=== PATIENT | male | born 1965 | race American Indian/Alaskan Native ===

== ENCOUNTER 2020-06-02 10:18 | Emergency (ER) | payer SELFPAY ==
--- NOTE | 2020-06-02 10:43 | Event Note ---
ED Screening Note Date of service: 06/02/20 Time: 10:40 ED Screening Note: Patient presents with complaints of elevated blood pressure x this morning States blood pressure was 205/70s Denies any chest pain, shortness of breath, headache, blurred vision, dizziness states compliance with home BP meds Hx of CHF edema noted in lower legs This initial assessment/diagnostic orders/clinical plan/treatment(s) is/are subject to change based on patients health status, clinical progression and re-assessment by fellow clinical providers in the ED. Further treatment and workup at subsequent clinical providers discretion. Patient/guardian urged not to elope from the ED as their condition may be serious if not clinically assessed and managed. Initial orders include: labs
[2020-06-02 11:51] LABS: Basophils # (Auto) 0.1 K/mm3 (0.0-0.1); Basophils % (Auto) 0.8 % (0.0-1.8); Eosinophils % (Auto) 0.1 % (0.0-4.3); Hematocrit 25.3 % (35.5-45.6); Hemoglobin 8.7 gm/dl (11.8-15.2); Lymphocytes % (Auto) 14.9 % (13.4-35.0); Mean Corpuscular HGB Conc 35 % (32-34); Mean Corpuscular Volume 85 fl (84-94); Monocytes # (Auto) 0.5 K/mm3 (0.0-0.8); Monocytes % (Auto) 7.8 % (0.0-7.3); Platelet Count 118 K/mm3 (140-440); Red Blood Count 2.97 M/mm3 (3.65-5.03); Red Cell Distribution Width 12.5 % (13.2-15.2)
[2020-06-02 11:53] LABS: Albumin 3.9 g/dL (3.9-5); Calcium 8.6 mg/dL (8.4-10.2)
[2020-06-02] MEDS ORDERED: hydrALAZINE 100 MG TAB PO ONE (14:34)
[2020-06-02] MEDS ORDERED: amLODIPine 5 MG TAB PO ONE (14:35)
--- NOTE | 2020-06-02 15:38 | Emergency Department Report ---
ED General Adult HPI - General Chief complaint: High BP Stated complaint: HBP Time Seen by Provider: 06/02/20 10:39 Source: patient Mode of arrival: Ambulatory Limitations: No Limitations - History of Present Illness Initial comments: 54-year-old male with a past medical history of diabetes, hypertension, chf, chronic renal insufficiency, and peptic ulcer disease presents to the hospital planing of elevated blood pressure. Patient states he checked his blood pressure at home last night and it was 72/46. Patient checks his blood pressure about 730 this morning and it was elevated. Patient states his blood pressures patient was due for his BP medications however, took the last dose of his medications last night. [place] and [place] not have a local physician. He complains of chronic lower extremity edema with left leg greater than right which is also chronic. He denies calf tenderness, chest pain, shortness of breath, or change in urine output. Patient states he has known chronic renal sufficiency but does not know his creatinine number. Patient states his blood pressure cuff sizes too large states he lost a lot of weight that he gets an error at home with repeated blood pressure measurement at [facility] - Related Data Previous Rx's Medication Instructions Recorded Last Taken Type AtorvaSTATin [Lipitor] 40 mg PO DAILY #30 06/02/20 Unknown Rx Bumetanide 2 mg PO BID #60 06/02/20 Unknown Rx amLODIPine 10 mg PO DAILY #30 06/02/20 Unknown Rx hydrALAZINE [Apresoline TAB] 100 mg PO TID #90 tab 06/02/20 Unknown Rx metOLazone [Zaroxolyn] 5 mg PO QDAY #30 06/02/20 Unknown Rx Allergies Allergy/AdvReac Type Severity Reaction Status Date / Time No Known Allergies Allergy Unverified 06/02/20 10:30 ED Review of Systems ROS: Stated complaint: HBP Other details as noted in HPI Comment: All other systems reviewed and negative ED Past Medical Hx - Past Medical History Hx Hypertension: Yes Hx Congestive Heart Failure: Yes Hx Diabetes: Yes Hx Renal Disease: Yes (cri) - Surgical History Additional Surgical History: ULCER - Social History Smoking Status: Current Some Day Smoker Substance Use Type: None - Medications Home Medications: Home Medications Medication Instructions Recorded Confirmed Last Taken Type AtorvaSTATin [Lipitor] 40 mg PO DAILY #30 06/02/20 Unknown Rx Bumetanide 2 mg PO BID #60 06/02/20 Unknown Rx amLODIPine 10 mg PO DAILY #30 06/02/20 Unknown Rx hydrALAZINE [Apresoline TAB] 100 mg PO TID #90 tab 06/02/20 Unknown Rx metOLazone [Zaroxolyn] 5 mg PO QDAY #30 06/02/20 Unknown Rx ED Physical Exam - General Limitations: No Limitations - Other Other exam information: General: No acute distress Head: Atraumatic Eyes: normal appearance ENT: Moist mucous membranes Neck: Normal appearance, no midline tenderness Chest: Clear to auscultation bilaterally CV: Regular rate and rhythm Abdomen: Soft, normal bowel sounds, nontender, nondistended, no rebound or guarding Back: Normal inspection Extremity: Bilateral lower extremity edema left leg larger than the right without calf tenderness, erythema, or warmth Neuro: Alert O x 3, no facial asymmetry, speech clear, no gross motor sensory deficit Psych: Appropriate behavior Skin: No rash ED Course Vital Signs 06/02/20 06/02/20 06/02/20 10:30 10:41 14:14 Temperature 98 F Pulse Rate 69 Respiratory 18 16 Rate Blood Pressure 226/89 Blood Pressure 208/91 [Left] O2 Sat by Pulse 97 Oximetry 06/02/20 06/02/20 06/02/20 14:15 14:30 14:49 Temperature 97.7 F Pulse Rate 59 L 67 Respiratory Rate Blood Pressure 230/97 218/89 Blood Pressure [Left] O2 Sat by Pulse 100 Oximetry 06/02/20 16:01 Temperature Pulse Rate 79 Respiratory 9 L Rate Blood Pressure 178/79 Blood Pressure [Left] O2 Sat by Pulse Oximetry - Consultations Consultation #1: 06/02/20 16:23 Case was discussed with on-call kosher dietary service manager Dr. Redmond who agrees patient can follow-up as an outpatient regarding his chronic renal insufficiency. Advises to increase hydralazine to 100 mg 3 times daily for additional blood pressure control and agrees that current medication list can be refilled. ED Medical Decision Making - Lab Data Result diagrams: 06/02/20 11:08 06/02/20 11:08 Lab Results 06/02/20 06/02/20 Range/Units 11:08 11:08 WBC 6.7 (4.5-11.0) K/mm3 RBC 2.97 L (3.65-5.03) M/mm3 Hgb 8.7 L (11.8-15.2) gm/dl Hct 25.3 L (35.5-45.6) % MCV 85 (84-94) fl MCH 29 (28-32) pg MCHC 35 H (32-34) % RDW 12.5 L (13.2-15.2) % Plt Count 118 L (140-440) K/mm3 Lymph % (Auto) 14.9 (13.4-35.0) % Dewey % (Auto) 7.8 H (0.0-7.3) % Eos % (Auto) 0.1 (0.0-4.3) % Baso % (Auto) 0.8 (0.0-1.8) % Lymph # 1.0 L (1.2-5.4) K/mm3 Dewey # 0.5 (0.0-0.8) K/mm3 Eos # 0.0 (0.0-0.4) K/mm3 Baso # 0.1 (0.0-0.1) K/mm3 Seg Neutrophils % 76.4 H (40.0-70.0) % Seg Neutrophils # 5.1 (1.8-7.7) K/mm3 Sodium 139 (137-145) mmol/L Potassium 4.0 (3.6-5.0) mmol/L Chloride 103.0 (98-107) mmol/L Carbon Dioxide 25 (22-30) mmol/L Anion Gap 15 mmol/L BUN 61 H (9-20) mg/dL Creatinine 3.4 H (0.8-1.3) mg/dL Estimated GFR 23 ml/min BUN/Creatinine Ratio 18 % Glucose 167 H (75-100) mg/dL Calcium 8.6 (8.4-10.2) mg/dL Total Bilirubin 0.30 (0.1-1.2) mg/dL AST 17 (5-40) units/L ALT 10 (7-56) units/L Alkaline Phosphatase 79 (35-129) units/L Total Protein 6.8 (6.3-8.2) g/dL Albumin 3.9 (3.9-5) g/dL Albumin/Globulin Ratio 1.3 % - EKG Data -: EKG Interpreted by Me ([facility]) EKG shows normal: sinus rhythm, ST-T waves Rate: normal (65) - Medical Decision Making Patient was provided his hydralazine and Norvasc as he did not have any medications this morning. Positive reduction in blood pressure. Patient has chronic leg edema with denies shortness of breath. Case discussed with kosher dietary service manager regarding patient's renal insufficiency. No hyperkalemia or acidosis noted therefore thought to be chronic (as reported by pt) and patient can f/u follow-up as outpatient. Current meds will be refilled with increase in hydralazine Patient informed that his hydralazine will be increased. He was also informed to obtain a different blood pressure cuff that is appropriate for the size of his arm and to check his blood pressure measurement prior to his hydralazine dosage and if his bp is low then do not take the medication Critical Care Time: No Critical care attestation.: If time is entered above; I have spent that time in minutes in the direct care of this critically ill patient, excluding procedure time. ED Disposition Clinical Impression: Uncontrolled hypertension, Medication refill, CRI (chronic renal insufficiency), Chronic CHF Disposition: DC- TO HOME OR SELFCARE Is pt being admited?: No Does the pt Need Aspirin: No Condition: Stable Instructions: Hypertension (ED), Impaired Kidney Function (ED), Leg Edema (ED) Additional Instructions: Take the medication as prescribed. Follow-up with your doctor or doctor/clinic provided. Return if symptoms worsen as indicated by your discharge instructions. Prescriptions: amLODIPine 10 mg PO DAILY #30 hydrALAZINE [Apresoline TAB] 100 mg PO TID #90 tab Bumetanide 2 mg PO BID #60 AtorvaSTATin [Lipitor] 40 mg PO DAILY #30 metOLazone [Zaroxolyn] 5 mg PO QDAY #30 Referrals: [facility] MD GREG [Primary Care Provider] - 3-5 Days (Primary care clinic) MALIK HAQ MD [Staff Physician] - 3-5 Days (Environmental Auditor) VIVIAN DEAN MD [Staff Physician] - 3-5 Days (Primary care doctor) OBDULIA REDMOND MD [Staff Physician] - 3-5 Days ([facility] (call office janet to schedule close follow up appointment)) Time of Disposition: 16:56
[2020-06-02] MEDS ORDERED: BUMETANIDE 1 MG TAB PO ONE (17:00)
[2020-06-02 17:37] VITALS: BP 170/72
== END 2020-06-02 17:13 | disposition home or self-care (01) ==
LOC: ED 10:18
DX: I13.0 Hypertensive heart and chronic kidney disease with heart failure and stage 1 through stage 4 chronic kidney disease, or unspecified chronic kidney disease (principal); E11.22 Type 2 diabetes mellitus with diabetic chronic kidney disease; N18.9 Chronic kidney disease, unspecified; I50.9 Heart failure, unspecified; F17.200 Nicotine dependence, unspecified, uncomplicated; Z79.899 Other long term (current) drug therapy; Z76.0 Encounter for issue of repeat prescription
CPT/HCPCS: 36415; 80053; 85025; 93005; 99283

== ENCOUNTER 2020-09-04 08:05 | Emergency (ER) | payer SELFPAY ==
--- NOTE | 2020-09-04 08:22 | Emergency Department Report ---
HPI - General Chief Complaint: Allergic Reaction Time Seen by Provider: 09/04/20 08:21 ED Past Medical Hx - Past Medical History Previous Medical History?: Yes Hx Hypertension: Yes Hx Congestive Heart Failure: Yes Hx Diabetes: Yes Hx Renal Disease: Yes (cri) - Surgical History Past Surgical History?: Yes Additional Surgical History: ULCER - Social History Smoking Status: Never Smoker Substance Use Type: Alcohol, Prescribed - Medications Home Medications: Home Medications Medication Instructions Recorded Confirmed Last Taken Type AtorvaSTATin [Lipitor] 40 mg PO DAILY #30 06/02/20 Unknown Rx Bumetanide 2 mg PO BID #60 06/02/20 Unknown Rx amLODIPine 10 mg PO DAILY #30 06/02/20 Unknown Rx hydrALAZINE [Apresoline TAB] 100 mg PO TID #90 tab 06/02/20 Unknown Rx metOLazone [Zaroxolyn] 5 mg PO QDAY #30 06/02/20 Unknown Rx ED Review of Systems ROS: Stated complaint: ALLERGIC REACTION Other details as noted in HPI Physical Exam - Physical Exam Vital Signs: Vital Signs 09/04/20 08:11 Temperature 98.6 F Pulse Rate 97 H Respiratory 18 Rate Blood Pressure 209/86 O2 Sat by Pulse 98 Oximetry ED Course Vital Signs 09/04/20 08:11 Temperature 98.6 F Pulse Rate 97 H Respiratory 18 Rate Blood Pressure 209/86 O2 Sat by Pulse 98 Oximetry Critical care attestation.: If time is entered above; I have spent that time in minutes in the direct care of this critically ill patient, excluding procedure time. ED Disposition Condition: Stable
[2020-09-04] MEDS ORDERED: diphenhydrAMINE 50 MG/ML VIAL IV ONE (08:28)
[2020-09-04] MEDS ORDERED: methylPREDNISolone Sod Succinate 125 MG/2 ML INJ IV ONE (08:28)
[2020-09-04] MEDS ORDERED: FAMOTIDINE 20 MG/2 ML INJ IV ONE (08:28)
--- NOTE | 2020-09-04 08:31 | Emergency Department Report ---
ED Allergic Reaction HPI - General Chief complaint: Allergic Reaction Stated complaint: ALLERGIC REACTION Time Seen by Provider: 09/04/20 08:21 Source: patient, family Mode of arrival: Wheelchair Limitations: No Limitations - History of Present Illness Initial Comments: 55-year-old male with a past medical history of diabetes, hypertension, chf, chronic renal insufficiency, and peptic ulcer disease presents to the hospital complaining of intermittent facial swelling for the past 3 days. Patient states he was sent to the [facility] ER on July 31 secondary to wheezing while at his primary care doctor's office. He was found to be hypertensive. He had lisinopril added to his current blood pressure regimen. Since patient has had intermittent facial swelling that and worsened today. Patient denies shortness of breath, rash, wheezing, tongue, or throat tightness. He thinks he had a similar reaction to lisinopril in the past but did not communicate this to the treating physician. PMD: [facility]. Patient last took lisinopril at 6 PM last night and did not take any medications this morning prior to arrival - Related Data Previous Rx's Medication Instructions Recorded Last Taken Type AtorvaSTATin [Lipitor] 40 mg PO DAILY #30 06/02/20 Unknown Rx Bumetanide 2 mg PO BID #60 06/02/20 Unknown Rx amLODIPine 10 mg PO DAILY #30 06/02/20 Unknown Rx hydrALAZINE [Apresoline TAB] 100 mg PO TID #90 tab 06/02/20 Unknown Rx metOLazone [Zaroxolyn] 5 mg PO QDAY #30 06/02/20 Unknown Rx Famotidine [Pepcid] 20 mg PO BID #10 tablet 09/04/20 Unknown Rx diphenhydrAMINE [Benadryl CAP] 25 mg PO Q6HR PRN #30 capsule 09/04/20 Unknown Rx methylPREDNISolone [Medrol 4MG 4 mg PO DAILY #1 tab.ds.pk 09/04/20 Unknown Rx DOSEPAK (21 tabs)] Allergies Allergy/AdvReac Type Severity Reaction Status Date / Time lisinopril Allergy Angioedema Verified 09/04/20 08:36 ED Review of Systems ROS: Stated complaint: ALLERGIC REACTION Other details as noted in HPI Comment: All other systems reviewed and negative ED Past Medical Hx - Past Medical History Previous Medical History?: Yes Hx Hypertension: Yes Hx Congestive Heart Failure: Yes Hx Diabetes: Yes Hx Renal Disease: Yes (cri) - Surgical History Past Surgical History?: Yes Additional Surgical History: ULCER - Social History Smoking Status: Never Smoker Substance Use Type: Alcohol, Prescribed - Medications Home Medications: Home Medications Medication Instructions Recorded Confirmed Last Taken Type AtorvaSTATin [Lipitor] 40 mg PO DAILY #30 06/02/20 Unknown Rx Bumetanide 2 mg PO BID #60 06/02/20 Unknown Rx amLODIPine 10 mg PO DAILY #30 06/02/20 Unknown Rx hydrALAZINE [Apresoline TAB] 100 mg PO TID #90 tab 06/02/20 Unknown Rx metOLazone [Zaroxolyn] 5 mg PO QDAY #30 06/02/20 Unknown Rx Famotidine [Pepcid] 20 mg PO BID #10 tablet 09/04/20 Unknown Rx diphenhydrAMINE [Benadryl CAP] 25 mg PO Q6HR PRN #30 capsule 09/04/20 Unknown Rx methylPREDNISolone [Medrol 4MG 4 mg PO DAILY #1 tab.ds.pk 09/04/20 Unknown Rx DOSEPAK (21 tabs)] ED Physical Exam - General Limitations: No Limitations - Other Other exam information: General: No acute distress Head: Atraumatic Eyes: normal appearance, mild swelling to periorbital area, ENT: Moist mucous membranes, no swelling to posterior pharynx or tongue, no stridor Neck: Normal appearance, no midline tendernesss, swelling to anterior throat and submental area Chest: Clear to auscultation bilaterally CV: Regular rate and rhythm Abdomen: Soft, normal bowel sounds, nontender, nondistended, no rebound or guarding Back: Normal inspection Extremity: Normal inspection, full range of motion Neuro: Alert O x 3, no facial asymmetry, speech clear, no gross motor sensory deficit Psych: Appropriate behavior Skin: No rash ED Course Vital Signs 09/04/20 09/04/20 09/04/20 08:11 08:34 08:46 Temperature 98.6 F Pulse Rate 97 H 85 94 H Respiratory 18 14 12 Rate Blood Pressure 209/86 188/90 Blood Pressure [Left] O2 Sat by Pulse 98 Oximetry 09/04/20 09/04/20 09/04/20 09:30 10:00 10:40 Temperature Pulse Rate 87 86 88 Respiratory 18 11 L Rate Blood Pressure 193/97 202/109 194/101 Blood Pressure [Left] O2 Sat by Pulse Oximetry 09/04/20 11:41 Temperature Pulse Rate 80 Respiratory 18 Rate Blood Pressure Blood Pressure 186/93 [Left] O2 Sat by Pulse 98 Oximetry ED Medical Decision Making - Medical Decision Making Patient reports reduced swelling with improved symptoms during ED stay after treatment Solu-Medrol, Pepcid, and Benadryl. He received labetalol IV push for hypertension with BP improvement. No stridor, voice changes, or respiratory distress in the ED. Patient instructed to stop lisinopril and will be sent home on medications for allergic reaction with instructed to return if symptoms worsen. Critical Care Time: No Critical care attestation.: If time is entered above; I have spent that time in minutes in the direct care of this critically ill patient, excluding procedure time. ED Disposition Clinical Impression: RUBINA inhibitor-aggravated angioedema, Hypertension Disposition: TO HOME OR SELFCARE Is pt being admited?: No Does the pt Need Aspirin: No Condition: Stable Instructions: Hypertension (ED), Angioedema, [id number], Hypertension, Adult, [id number] Additional Instructions: Take the medication as prescribed. Follow-up with your doctor or doctor/clinic provided. Return if symptoms worsen as indicated by your discharge instructions. Please stop your lisinopril and please report this medication as an allergy in the future Prescriptions: diphenhydrAMINE [Benadryl CAP] 25 mg PO Q6HR PRN #30 capsule PRN Reason: Allergy Symptoms methylPREDNISolone [Medrol 4MG DOSEPAK (21 tabs)] 4 mg PO DAILY #1 tab.ds.pk Famotidine [Pepcid] 20 mg PO BID #10 tablet Referrals: PRIMARY CARE, [Primary Care Provider] - 2-3 Days Time of Disposition: 13:21
[2020-09-04 13:38] VITALS: BP 188/98
== END 2020-09-04 13:47 | disposition home or self-care (01) ==
LOC: ED 08:05
DX: T78.3XXA Angioneurotic edema, initial encounter (principal); I11.0 Hypertensive heart disease with heart failure; I50.9 Heart failure, unspecified; E11.9 Type 2 diabetes mellitus without complications; Z79.899 Other long term (current) drug therapy; Z88.8 Allergy status to other drugs, medicaments and biological substances; Z98.890 Other specified postprocedural states; X58.XXXA Exposure to other specified factors, initial encounter
CPT/HCPCS: 96374; 96375; 99283; J1200; J2930

== ENCOUNTER 2020-12-17 02:27 | Inpatient (IN) | payer OTHER ==
[2020-12-17] MEDS ORDERED: methylPREDNISolone Sod Succinate 125 MG/2 ML INJ IV ONE (02:36)
[2020-12-17] MEDS ORDERED: IPRATROPIUM 0.02% NEBU 2.5 ML IH ONE (02:36)
[2020-12-17] MEDS ORDERED: ALBUTEROL 2.5 MG/3 ML NEBU IH ONE (02:36)
--- NOTE | 2020-12-17 02:37 | Emergency Department Report ---
ED Shortness of Breath HPI - General Chief Complaint: Dyspnea/Respdistress Stated Complaint: SOB Time Seen by Provider: 12/17/20 02:34 Source: patient, EMS Mode of arrival: Stretcher Limitations: No Limitations - History of Present Illness Initial Comments: Patient is a 55-year-old male who presents emergency room with complaints of shortness of breath. Patient brought in by EMS. Report received from EMS. Patient states he has history of COPD, diabetes and hypertension and renal disease. Patient states that he ran out of his medications a few weeks ago. They states Topamax he is position due to financial difficulties. Patient states his shortness of breath better with rest and worse with exertion. Patient states he feels he is having a COPD attack. Patient denies recent travel. Patient denies recent international travel. Patient denies exposure to the novel coronavirus. Patient denies sick contacts. Patient denies fever and chills. Patient denies cough. Patient denies diarrhea. Patient denies coming in contact with anybody with symptoms of the novel coronavirus. MD Complaint: shortness of breath -: Sudden Severity: severe Improves With: rest Worsens With: exertion Known History Of: COPD, congestive heart failure Context: medication noncompliance Treatments Prior to Arrival: other (EMS) - Related Data Home Oxygen Therapy: No Previous Rx's Medication Instructions Recorded Last Taken Type AtorvaSTATin [Lipitor] 40 mg PO DAILY #30 06/02/20 Unknown Rx Bumetanide 2 mg PO BID #60 06/02/20 Unknown Rx amLODIPine 10 mg PO DAILY #30 06/02/20 Unknown Rx hydrALAZINE [Apresoline TAB] 100 mg PO TID #90 tab 06/02/20 Unknown Rx metOLazone [Zaroxolyn] 5 mg PO QDAY #30 06/02/20 Unknown Rx Famotidine [Pepcid] 20 mg PO BID #10 tablet 09/04/20 Unknown Rx diphenhydrAMINE [Benadryl CAP] 25 mg PO Q6HR PRN #30 capsule 09/04/20 Unknown Rx methylPREDNISolone [Medrol 4MG 4 mg PO DAILY #1 tab.ds.pk 09/04/20 Unknown Rx DOSEPAK (21 tabs)] Allergies Allergy/AdvReac Type Severity Reaction Status Date / Time lisinopril Allergy Angioedema Verified 09/04/20 08:36 ED Review of Systems ROS: Stated complaint: SOB Other details as noted in HPI Constitutional: denies: chills, fever Eyes: denies: eye pain, eye discharge, vision change ENT: denies: ear pain, throat pain Respiratory: shortness of breath, wheezing. denies: cough Cardiovascular: denies: chest pain, palpitations Endocrine: no symptoms reported Gastrointestinal: denies: abdominal pain, nausea, diarrhea Genitourinary: denies: urgency, dysuria Musculoskeletal: denies: back pain, joint swelling, arthralgia Skin: denies: rash, lesions Neurological: denies: headache, weakness, paresthesias Psychiatric: denies: anxiety, depression Hematological/Lymphatic: denies: easy bleeding, easy bruising ED Past Medical Hx - Past Medical History Previous Medical History?: Yes Hx Hypertension: Yes Hx Congestive Heart Failure: Yes Hx Diabetes: Yes Hx Renal Disease: Yes (cri) Hx COPD: Yes - Surgical History Past Surgical History?: Yes Additional Surgical History: ULCER - Family History Family history: no significant - Social History Smoking Status: Never Smoker Substance Use Type: Alcohol, Prescribed - Medications Home Medications: Home Medications Medication Instructions Recorded Confirmed Last Taken Type AtorvaSTATin [Lipitor] 40 mg PO DAILY #30 06/02/20 Unknown Rx Bumetanide 2 mg PO BID #60 06/02/20 Unknown Rx amLODIPine 10 mg PO DAILY #30 06/02/20 Unknown Rx hydrALAZINE [Apresoline TAB] 100 mg PO TID #90 tab 06/02/20 Unknown Rx metOLazone [Zaroxolyn] 5 mg PO QDAY #30 06/02/20 Unknown Rx Famotidine [Pepcid] 20 mg PO BID #10 tablet 09/04/20 Unknown Rx diphenhydrAMINE [Benadryl CAP] 25 mg PO Q6HR PRN #30 capsule 09/04/20 Unknown Rx methylPREDNISolone [Medrol 4MG 4 mg PO DAILY #1 tab.ds.pk 09/04/20 Unknown Rx DOSEPAK (21 tabs)] ED Physical Exam - General Limitations: No Limitations General appearance: alert, in no apparent distress - Head Head exam: Present: atraumatic, normocephalic - Eye Eye exam: Present: normal appearance - ENT ENT exam: Present: mucous membranes moist - Neck Neck exam: Present: normal inspection - Respiratory Respiratory exam: Present: normal lung sounds bilaterally. Absent: respiratory distress - Cardiovascular Cardiovascular Exam: Present: regular rate, normal rhythm. Absent: systolic murmur, diastolic murmur, rubs, gallop - GI/Abdominal GI/Abdominal exam: Present: soft, normal bowel sounds - Rectal Rectal exam: Present: deferred - Extremities Exam Extremities exam: Present: normal inspection - Back Exam Back exam: Present: normal inspection - Neurological Exam Neurological exam: Present: alert, oriented X3 - Psychiatric Psychiatric exam: Present: normal affect, normal mood - Skin Skin exam: Present: warm, dry, intact, normal color. Absent: rash ED Course Vital Signs 12/17/20 12/17/20 12/17/20 02:41 02:47 03:08 Temperature 97.9 F Pulse Rate 83 Pulse Rate [ 90 Bilateral] Respiratory 18 18 Rate Respiratory 22 Rate [Bilateral ] Blood Pressure 235/110 Blood Pressure [Left] O2 Sat by Pulse 98 98 Oximetry 12/17/20 04:23 Temperature Pulse Rate 94 H Pulse Rate [ Bilateral] Respiratory 20 Rate Respiratory Rate [Bilateral ] Blood Pressure Blood Pressure 193/95 [Left] O2 Sat by Pulse 99 Oximetry - Reevaluation(s) Reevaluation #1: Patient had chest x-ray done which shows pulmonary edema. Patient's breathing treatment stopped. Patient will be given IV Lasix. Patient will have a cardiac work-up. 12/17/20 03:08 Reevaluation #2: Patient will be typed and screened. I discussed all results with patient. I discussed plan of care with patient. Patient agrees with plan of care and admission. Patient to be admitted to the hospitalist service. 12/17/20 04:09 - Consultations Consultation #1: Hospitalist consulted for admission. Hospitalist to admit patient. 12/17/20 04:11 ED Medical Decision Making - Lab Data Result diagrams: 12/17/20 03:10 12/17/20 03:10 - EKG Data -: EKG Interpreted by Me EKG shows normal: sinus rhythm, axis, intervals, QRS complexes, ST-T waves Rate: normal - Radiology Data Radiology results: report reviewed, image reviewed interpreted by me: Chest x-ray: No pneumonia, no pneumothorax, no foreign body, no osseous findings, cardiomegaly and pulmonary edema. CHEST 1 VIEW 12/17/2020 2:55 AM INDICATION / CLINICAL INFORMATION: Dyspnea. COMPARISON: None available. FINDINGS: SUPPORT DEVICES: None. HEART / MEDIASTINUM: Moderate cardiomegaly. LUNGS / PLEURA: Increased interstitial markings suggestive for pulmonary edema. 2.5 cm cavitary lesion right upper lobe. No pneumothorax. ADDITIONAL FINDINGS: No significant additional findings. IMPRESSION: 1. 2.5 cm cavitary lesion right upper lobe. Differential considerations would include neoplasm versus infection such as TB. Respiratory precautions recommended. 2. CHF - Medical Decision Making Patient is a 55-year-old male who presents emergency room with complaints of shortness of breath. Patient initially said he feels like his COPD is acting up. Patient was initially given steroids and a breathing treatment. Patient lia bolton had a chest x-ray done which showed pulmonary edema and the breathing treatment was discontinued. Patient EKG and chest x-ray reviewed by me. Patient's EKG shows a sinus rhythm. Patient EKG does not show any ST elevation. Patient had labs done which have multiple abnormalities to include elevated troponin, elevated BNP, acute on chronic renal failure, anemia. After the CBC came back with severe anemia, the patient was typed and screened. Patient had a unit of RBCs ordered. After the chest x-ray was read, the patient was given Lasix 40 mg IV. Patient also found to have a hypertensive emergency and the patient was given 20 mg of hydralazine earlier in the ER stay. Patient blood pr essure responded well to Lasix and hydralazine. Patient during initial exam said that he has been compliant with his medication for 2 to 3 weeks. Patient admitted to the hospital service for further evaluation and treatment. - Differential Diagnosis COPD, CHF, mixed, shortness of breath, noncompliance Critical Care Time: Yes Critical care time in (mins) excluding proc time.: 35 Critical care attestation.: If time is entered above; I have spent that time in minutes in the direct care of this critically ill patient, excluding procedure time. Critical Care Time: 35 minutes ED Disposition Clinical Impression: SOB (shortness of breath), BLANCO (dyspnea on exertion), Noncompliance, Pulmonary edema cardiac cause, Hypertensive emergency, Elevated troponin I level CHF exacerbation Qualifiers: Heart failure type: unspecified Qualified Code(s): I50.9 - Heart failure, unspecified Renal failure (ARF), acute on chronic Qualifiers: Acute renal failure type: unspecified Chronic kidney disease stage: unspecified stage Qualified Code(s): N17.9 - Acute kidney failure, unspecified Anemia Qualifiers: Anemia type: unspecified type Qualified Code(s): D64.9 - Anemia, unspecified Disposition: 09 OP ADMIT IP TO THIS HOSP Is pt being admited?: Yes Does the pt Need Aspirin: No Condition: Critical Instructions: Pulmonary Edema (ED), Hypertension (ED) Time of Disposition: 04:10
[2020-12-17] MEDS ORDERED: hydrALAZINE 20 MG/1 ML INJ IV ONE (02:48)
--- NOTE | 2020-12-17 03:12 | XRay Report ---
CHEST 1 VIEW 12/17/2020 2:55 AM INDICATION / CLINICAL INFORMATION: Dyspnea. COMPARISON: None available. FINDINGS: SUPPORT DEVICES: None. HEART / MEDIASTINUM: Moderate cardiomegaly. LUNGS / PLEURA: Increased interstitial markings suggestive for pulmonary edema. 2.5 cm cavitary lesio n right upper lobe. No pneumothorax. ADDITIONAL FINDINGS: No significant additional findings. IMPRESSION: 1. 2.5 cm cavitary lesion right upper lobe. Differential considerations would include neoplasm versus infection such as TB. Respiratory precautions recommended. 2. CHF Signer Name: Fox Pichardo MD Signed: 12/17/2020 3:07 AM Workstation Name: [id number]
[2020-12-17] MEDS ORDERED: ASPIRIN 325 MG TAB PO ONE (03:17)
[2020-12-17] MEDS ORDERED: FUROSEMIDE 40 MG/4 ML INJ IV ONE (03:17)
[2020-12-17 03:21] LABS: Basophils % (Auto) 0.7 % (0.0-1.8); Eosinophils % (Auto) 0.5 % (0.0-4.3); Lymphocytes # (Auto) 0.9 K/mm3 (1.2-5.4); Lymphocytes % (Auto) 18.9 % (13.4-35.0); Mean Corpuscular HGB Conc 34 % (32-34); Mean Corpuscular Volume 85 fl (84-94); Monocytes # (Auto) 0.4 K/mm3 (0.0-0.8); Monocytes % (Auto) 7.7 % (0.0-7.3); Platelet Count 134 K/mm3 (140-440); Red Blood Count 2.07 M/mm3 (3.65-5.03); Red Cell Distribution Width 17.7 % (13.2-15.2)
[2020-12-17 03:43] LABS: Albumin 3.4 g/dL (3.9-5); Calcium 8.2 mg/dL (8.4-10.2)
[2020-12-17 04:07] LABS: Hematocrit 17.6 % (35.5-45.6)
[2020-12-17] MEDS ORDERED: SODIUM CHLORIDE 0.9% 500 ML 500 ML IV ONE (04:09)
[2020-12-17 05:51] LABS: Chol/HDL Ratio 2.38 %
[2020-12-17] MEDS: hydrALAZINE 20 MG/1 ML INJ IV PRN ×3 (05:56→22:07)
[2020-12-17] MEDS ORDERED: diphenhydrAMINE 25 MG CAP PO PRN (15:25)
[2020-12-17] MEDS ORDERED: HYDROmorphone 1 MG/1 ML INJ IV PRN (15:26)
[2020-12-17] MEDS ORDERED: oxyCODONE /ACETAMINOPHEN 5-325MG TAB PO PRN (15:26)
[2020-12-17] MEDS ORDERED: METOCLOPRAMIDE 10 MG/2 ML INJ IV PRN (15:26)
[2020-12-17] MEDS ORDERED: ACETAMINOPHEN 325 MG TAB PO PRN (15:26)
[2020-12-17] MEDS ORDERED: ONDANSETRON 4 MG/2 ML INJ IV PRN (15:26)
[2020-12-17] MEDS ORDERED: PROMETHAZINE 25 MG RECT SUPP PR PRN (15:26)
[2020-12-17] MEDS ORDERED: BUMETANIDE 2 MG PO SCH (15:30)
[2020-12-17] MEDS ORDERED: SODIUM CHLORIDE 0.9% 1000 ML 1,000 ML IV SCH (15:30)
[2020-12-17] MEDS: amLODIPine 10 MG TAB PO SCH (16:25)
[2020-12-17] MEDS: BUMETANIDE 1 MG TAB PO SCH (17:44)
[2020-12-17] MEDS: metOLazone 5 MG TAB PO SCH (17:45)
[2020-12-17] MEDS: hydrALAZINE 100 MG TAB PO SCH (19:57)
[2020-12-17] MEDS ORDERED: FAMOTIDINE 20 MG TAB PO SCH (22:00)
[2020-12-17] MEDS: FAMOTIDINE 10 MG TAB PO SCH (22:07)
[2020-12-17 22:53] LABS: Basophils % (Auto) 0.1 % (0.0-1.8); Hematocrit 21.9 % (35.5-45.6); Hemoglobin 7.6 gm/dl (11.8-15.2); Lymphocytes # (Auto) 0.6 K/mm3 (1.2-5.4); Lymphocytes % (Auto) 8.4 % (13.4-35.0); Mean Corpuscular HGB Conc 35 % (32-34); Mean Corpuscular Volume 85 fl (84-94); Monocytes # (Auto) 0.7 K/mm3 (0.0-0.8); Monocytes % (Auto) 9.6 % (0.0-7.3); Platelet Count 157 K/mm3 (140-440); Red Blood Count 2.57 M/mm3 (3.65-5.03); Red Cell Distribution Width 17.4 % (13.2-15.2)
[2020-12-17 23:09] LABS: Calcium 8.6 mg/dL (8.4-10.2)
[2020-12-18 01:04] LABS: Creatine Kinase MB 7.5 ng/mL (0.0-4.0)
[2020-12-18 06:22] LABS: Basophils % (Auto) 0.3 % (0.0-1.8); Eosinophils % (Auto) 0.1 % (0.0-4.3); Hemoglobin 6.9 gm/dl (11.8-15.2); Lymphocytes # (Auto) 0.8 K/mm3 (1.2-5.4); Lymphocytes % (Auto) 11.6 % (13.4-35.0); Mean Corpuscular HGB Conc 35 % (32-34); Mean Corpuscular Volume 85 fl (84-94); Monocytes # (Auto) 0.7 K/mm3 (0.0-0.8); Monocytes % (Auto) 9.4 % (0.0-7.3); Platelet Count 150 K/mm3 (140-440); Red Blood Count 2.32 M/mm3 (3.65-5.03); Red Cell Distribution Width 17.7 % (13.2-15.2)
[2020-12-18] MEDS: BUMETANIDE 1 MG TAB PO SCH ×2 (06:24→17:59)
[2020-12-18] MEDS: metOLazone 5 MG TAB PO SCH (06:34)
[2020-12-18 06:50] LABS: Albumin 3.1 g/dL (3.9-5); Calcium 8.1 mg/dL (8.4-10.2)
--- NOTE | 2020-12-18 07:35 | History and Physical Report ---
History of Present Illness Date of examination: 12/17/20 Date of admission: 12/17/20 04:13 Chief complaint: SOB 1 day History of present illness: 55-year-old male who presents emergency room with complaints of shortness of breath. Patient brought in by EMS. Report received from EMS. Patient states he has history of COPD, diabetes and hypertension and renal disease. Patient states that he ran out of his medications a few weeks ago. Topamax Patient states his shortness of breath better with rest and worse with exertion. Patient states he feels he is having a COPD attack. Patient denies recent travel. Patient denies recent international travel. Patient denies exposure to the novel coronavirus. Patient denies sick contacts. Patient denies fever and chills. Patient denies cough. Patient denies diarrhea. Patient denies coming in contact with anybody with symptoms of the novel coronavirus. - Past Medical History Previous Medical History?: Yes --Hypertension: Yes --Congestive Heart Failure: Yes --Diabetes: Yes --Renal Disease: Yes (cri) --COPD: Yes - Surgical History Past Surgical History?: Yes Additional Surgical History: ULCER - Family History Family history: no significant - Social History Smoking Status: Never Smoker Substance Use Type: Alcohol, Prescribed - Medications Home Medications: Home Medications Medication Instructions Recorded Confirmed Last Taken Type AtorvaSTATin [Lipitor] 40 mg PO DAILY #30 06/02/20 Unknown Rx Bumetanide 2 mg PO BID #60 06/02/20 Unknown Rx amLODIPine 10 mg PO DAILY #30 06/02/20 Unknown Rx hydrALAZINE [Apresoline TAB] 100 mg PO TID #90 tab 06/02/20 Unknown Rx metOLazone [Zaroxolyn] 5 mg PO QDAY #30 06/02/20 Unknown Rx Famotidine [Pepcid] 20 mg PO BID #10 tablet 09/04/20 Unknown Rx diphenhydrAMINE [Benadryl CAP] 25 mg PO Q6HR PRN #30 capsule 09/04/20 Unknown Rx methylPREDNISolone [Medrol 4MG 4 mg PO DAILY #1 tab.ds.pk 09/04/20 Unknown Rx DOSEPAK (21 tabs)] Review of Systems ROS: Stated complaint: SOB Other details as noted in HPI Constitutional: denies: chills, fever Eyes: denies: eye pain, eye discharge, vision change ENT: denies: ear pain, throat pain Respiratory: shortness of breath, wheezing. denies: cough Cardiovascular: denies: chest pain, palpitations Endocrine: no symptoms reported Gastrointestinal: denies: abdominal pain, nausea, diarrhea Genitourinary: denies: urgency, dysuria Musculoskeletal: denies: back pain, joint swelling, arthralgia Skin: denies: rash, lesions Neurological: denies: headache, weakness, paresthesias Psychiatric: denies: anxiety, depression Hematological/Lymphatic: denies: easy bleeding, easy bruising Medications and Allergies Allergies Allergy/AdvReac Type Severity Reaction Status Date / Time lisinopril Allergy Angioedema Verified 09/04/20 08:36 Home Medications Medication Instructions Recorded Confirmed Last Taken Type AtorvaSTATin [Lipitor] 40 mg PO DAILY #30 06/02/20 Unknown Rx Bumetanide 2 mg PO BID #60 06/02/20 Unknown Rx amLODIPine 10 mg PO DAILY #30 06/02/20 Unknown Rx hydrALAZINE [Apresoline TAB] 100 mg PO TID #90 tab 06/02/20 Unknown Rx metOLazone [Zaroxolyn] 5 mg PO QDAY #30 06/02/20 Unknown Rx Famotidine [Pepcid] 20 mg PO BID #10 tablet 09/04/20 Unknown Rx diphenhydrAMINE [Benadryl CAP] 25 mg PO Q6HR PRN #30 capsule 09/04/20 Unknown Rx methylPREDNISolone [Medrol 4MG 4 mg PO DAILY #1 tab.ds.pk 09/04/20 Unknown Rx DOSEPAK (21 tabs)] Active Meds: Active Medications Acetaminophen (Acetaminophen 325 Mg Tab) 650 mg PO Q4H PRN PRN Reason: Pain MILD(1-3)/Fever >100.5/[place] Amlodipine Besylate (Amlodipine 10 Mg Tab) 10 mg PO DAILY [facility] Last Admin: 12/17/20 16:25 Dose: 10 mg Documented by: Atorvastatin Calcium (Atorvastatin 40 Mg Tab) 40 mg PO QHS [facility] Last Admin: 12/17/20 22:07 Dose: 40 mg Documented by: Bumetanide (Bumetanide 1 Mg Tab) 2 mg PO 0600,1800 [facility] Last Admin: 12/18/20 06:24 Dose: 2 mg Documented by: Diphenhydramine HCl (Diphenhydramine 25 Mg Cap) 25 mg PO Q6HR PRN PRN Reason: Allergy Symptoms Famotidine (Famotidine 10 Mg Tab) 10 mg PO BID [facility] Last Admin: 12/17/20 22:07 Dose: 10 mg Documented by: Hydralazine HCl (Hydralazine 20 Mg/1 Ml Inj) 20 mg IV Q4HR PRN PRN Reason: hypertension Last Admin: 12/17/20 22:07 Dose: 20 mg Documented by: Hydralazine HCl (Hydralazine 100 Mg Tab) 100 mg PO TID [facility] Last Admin: 12/17/20 19:57 Dose: 100 mg Documented by: Hydromorphone HCl (Hydromorphone 1 Mg/1 Ml Inj) 0.5 mg IV Q3H PRN PRN Reason: Pain , Severe (7-10) Last Admin: 12/17/20 20:28 Dose: 0.5 mg Documented by: Sodium Chloride (Nacl 0.9% 1000 Ml) 1,000 mls @ 75 mls/hr IV DIRECT [facility] Methylprednisolone (Methylprednisolone 4 Mg Tab) 4 mg PO QDAY [facility] Metoclopramide HCl (Metoclopramide 10 Mg/2 Ml Inj) 10 mg IV Q6H PRN PRN Reason: Nausea And Vomiting Metolazone (Metolazone 5 Mg Tab) 5 mg PO DAILY@0600 [facility] Last Admin: 12/18/20 06:34 Dose: 5 mg Documented by: Ondansetron HCl (Ondansetron 4 Mg/2 Ml Inj) 4 mg IV Q8H PRN PRN Reason: Nausea And Vomiting Oxycodone/Acetaminophen (Oxycodone /Acetaminophen 5-325mg Tab) 1 tab PO Q6H PRN PRN Reason: Pain, Moderate (4-6) Promethazine HCl (Promethazine 25 Mg Rect Supp) 25 mg [place] Q6H PRN PRN Reason: N/V IF NPO AND NO IV ACCESS Sodium Chloride (Sodium Chloride 0.9% 10 Ml Flush Syringe) 10 ml IV BID [facility] Last Admin: 12/17/20 22:09 Dose: 10 ml Documented by: Sodium Chloride (Sodium Chloride 0.9% 10 Ml Flush Syringe) 10 ml IV PRN PRN PRN Reason: LINE FLUSH Last Admin: 12/17/20 19:58 Dose: 10 ml Documented by: Exam - Constitutional Vitals: Temp Pulse Resp BP Pulse Ox 98.3 F 75 15 184/93 96 12/17/20 19:36 12/18/20 07:22 12/18/20 07:22 12/18/20 07:22 12/18/20 07:22 General appearance: Present: mild distress, well-nourished - EENT Eyes: Present: PERRL ENT: hearing intact, clear oral mucosa - Neck Neck: Present: supple, normal ROM - Respiratory Respiratory effort: normal Respiratory: bilateral: CTA, rhonchi - Cardiovascular Heart rate: 78 Rhythm: regular Heart Sounds: Present: S1 & S2. Absent: rub, click - Extremities Extremities: no ischemia, pulses intact, pulses symmetrical, No edema Peripheral Pulses: within normal limits - Abdominal General gastrointestinal: Present: soft, non-tender, non-distended, normal bowel sounds Male genitourinary: Present: normal - Rectal Rectal Exam: deferred - Integumentary Integumentary: Present: clear, warm, dry - Musculoskeletal Musculoskeletal: gait normal, strength equal bilaterally - Psychiatric Psychiatric: appropriate mood/affect, intact judgment & insight - Neurologic Neurologic: CNII-XII intact, moves all extremities - Allied Health Allied health notes reviewed: nursing, case management HEART Score - HEART Score Troponin: Troponin T 0.234 ng/mL (0.00-0.029) H* 12/17/20 Unknown Results - Labs CBC & Chem 7: 12/18/20 04:57 12/18/20 04:57 Labs: Laboratory Last Values WBC 7.2 K/mm3 (4.5-11.0) 12/18/20 04:57 RBC 2.32 M/mm3 (3.65-5.03) L 12/18/20 04:57 Hgb 6.9 gm/dl (11.8-15.2) L 12/18/20 04:57 Hct 20.0 % (35.5-45.6) L 12/18/20 04:57 MCV 85 fl (84-94) 12/18/20 04:57 MCH 30 pg (28-32) 12/18/20 04:57 MCHC 35 % (32-34) H 12/18/20 04:57 RDW 17.7 % (13.2-15.2) H 12/18/20 04:57 Plt Count 150 K/mm3 (140-440) 12/18/20 04:57 Lymph % (Auto) 11.6 % (13.4-35.0) L 12/18/20 04:57 Cameron % (Auto) 9.4 % (0.0-7.3) H 12/18/20 04:57 Eos % (Auto) 0.1 % (0.0-4.3) 12/18/20 04:57 Baso % (Auto) 0.3 % (0.0-1.8) 12/18/20 04:57 Lymph # (Auto) 0.8 K/mm3 (1.2-5.4) L 12/18/20 04:57 Cameron # (Auto) 0.7 K/mm3 (0.0-0.8) 12/18/20 04:57 Eos # (Auto) 0.0 K/mm3 (0.0-0.4) 12/18/20 04:57 Baso # (Auto) 0.0 K/mm3 (0.0-0.1) 12/18/20 04:57 Seg Neutrophils % 78.6 % (40.0-70.0) H 12/18/20 04:57 Seg Neutrophils # 5.7 K/mm3 (1.8-7.7) 12/18/20 04:57 Sodium 141 mmol/L (137-145) 12/18/20 04:57 Potassium 3.9 mmol/L (3.6-5.0) 12/18/20 04:57 Chloride 111.7 mmol/L (98-107) H 12/18/20 04:57 Carbon Dioxide 20 mmol/L (22-30) L 12/18/20 04:57 Anion Gap 13 mmol/L 12/18/20 04:57 BUN 73 mg/dL (9-20) H 12/18/20 04:57 Creatinine 4.3 mg/dL (0.8-1.3) H 12/18/20 04:57 Estimated GFR 17 ml/min 12/18/20 04:57 BUN/Creatinine Ratio 17 % 12/18/20 04:57 Glucose 145 mg/dL (75-100) H 12/18/20 04:57 Hemoglobin A1c 6.4 % (4-6) H 12/17/20 03:10 Calcium 8.1 mg/dL (8.4-10.2) L 12/18/20 04:57 Total Bilirubin 0.30 mg/dL (0.1-1.2) 12/18/20 04:57 AST 16 units/L (5-40) 12/18/20 04:57 ALT 32 units/L (7-56) 12/18/20 04:57 Alkaline Phosphatase 98 units/L (35-129) 12/18/20 04:57 Total Creatine Kinase 289 units/L (55-170) H 12/18/20 00:47 CK-MB (CK-2) 7.5 ng/mL (0.0-4.0) H 12/18/20 00:47 CK-MB (CK-2) Rel Index 2.5 (0-4) 12/18/20 00:47 Troponin T 0.234 ng/mL (0.00-0.029) H* 12/17/20 Unknown NT-Pro-B Natriuret Pep 61125 pg/mL (0-900) H 12/17/20 Unknown Total Protein 5.8 g/dL (6.3-8.2) L 12/18/20 04:57 Albumin 3.1 g/dL (3.9-5) L 12/18/20 04:57 Albumin/Globulin Ratio 1.1 % 12/18/20 04:57 Triglycerides 104 mg/dL (2-149) 12/17/20 Unknown Cholesterol 179 mg/dL (50-199) 12/17/20 Unknown LDL Cholesterol Direct 107 mg/dL (50-130) 12/17/20 Unknown HDL Cholesterol 75 mg/dL (40-59) H 12/17/20 Unknown Cholesterol/HDL Ratio 2.38 % 12/17/20 Unknown Blood Type B POSITIVE 12/17/20 04:15 Antibody Screen Negative 12/17/20 04:15 Crossmatch See Detail 12/17/20 04:15 Short CBC 12/17/20 12/18/20 Range/Units 22:44 04:57 WBC 6.9 7.2 (4.5-11.0) K/mm3 Hgb 7.6 L 6.9 L (11.8-15.2) gm/dl Hct 21.9 L 20.0 L (35.5-45.6) % Plt Count 157 150 (140-440) K/mm3 BMP 12/17/20 12/18/20 22:44 04:57 Sodium 139 141 Potassium 3.9 3.9 Chloride 108.0 H 111.7 H Carbon Dioxide 18 L 20 L BUN 70 H 73 H Creatinine 4.3 H 4.3 H Glucose 161 H 145 H Calcium 8.6 8.1 L Cardiac Enzymes 12/17/20 12/18/20 Range/Units 22:44 00:47 Total Creatine Kinase 289 H (55-170) units/L CK-MB (CK-2) 7.5 H (0.0-4.0) ng/mL Troponin T 0.257 H* (0.00-0.029) ng/mL Liver Function 12/18/20 Range/Units 04:57 Total Bilirubin 0.30 (0.1-1.2) mg/dL AST 16 (5-40) units/L ALT 32 (7-56) units/L Alkaline Phosphatase 98 (35-129) units/L Albumin 3.1 L (3.9-5) g/dL - Imaging and Cardiology Chest x-ray: report reviewed Imaging and Cardiology: Chest x-ray 2.5 cm cavitary lesion right upper lobe Differential considerations or complete neoplasm versus infection/STD Respiratory precautions recommended CHF Assessment and Plan Advance Directives: Yes (Full code) VTE prophylaxis?: Chemical Plan of care discussed with patient/family: Yes - Patient Problems (1) Cavitary lesion of lung Current Visit: Yes Status: Acute Plan to address problem: R/o TB versus malignancy CT chest requested Quantiferon gld test and AFB x 3 (2) Hypertensive emergency Current Visit: Yes Status: Acute Plan to address problem: Medications adjusted IV Hydralazine prn q3h (3) Renal failure (ARF), acute on chronic Current Visit: Yes Status: Acute Qualifiers: Acute renal failure type: unspecified Chronic kidney disease stage: unspecified stage Qualified Code(s): N17.9 - Acute kidney failure, unspecified; N18.9 - Chronic kidney disease, unspecified Plan to address problem: Renal consult (4) CHF exacerbation Current Visit: Yes Status: Acute Qualifiers: Heart failure type: unspecified Qualified Code(s): I50.9 - Heart failure, unspecified Plan to address problem: On IV lasix q24h ECHO for EF (5) GERD (gastroesophageal reflux disease) Current Visit: Yes Status: Chronic Qualifiers: Esophagitis presence: without esophagitis Qualified Code(s): K21.9 - Gastro-esophageal reflux disease without esophagitis Plan to address problem: on protonix (6) HLD (hyperlipidemia) Current Visit: Yes Status: Chronic Qualifiers: Hyperlipidemia type: mixed hyperlipidemia Qualified Code(s): E78.2 - Mixed hyperlipidemia Plan to address problem: On Statins (7) DVT prophylaxis Current Visit: Yes Status: Acute Plan to address problem: on Heparin and GI prophylaxis
[2020-12-18] MEDS ORDERED: hydrALAZINE 20 MG/1 ML INJ IV PRN (07:48)
[2020-12-18] MEDS ORDERED: SODIUM CHLORIDE 0.9% 500 ML 500 ML IV ONE (07:50)
[2020-12-18] MEDS ORDERED: FUROSEMIDE 40 MG/4 ML INJ IV ONE (07:51)
[2020-12-18] MEDS ORDERED: hydrALAZINE 25 MG TAB PO SCH (08:00)
[2020-12-18] MEDS ORDERED: POTASSIUM CHLORIDE ER 20 MEQ TAB PO ONE (08:00)
--- NOTE | 2020-12-18 08:58 | Cat Scan Report ---
CT CHEST WITHOUT CONTRAST INDICATION / CLINICAL INFORMATION: Chest radiograph should cavitary lesion on the right. TECHNIQUE: Axial CT images were obtained through the chest without contrast. All CT scans at this location are p erformed using CT dose reduction for ALARA by means of automated exposure control. COMPARISON: 12/17/2020 FINDINGS: HEART: There is mild enlargement of the heart. There is a small amount of pericardial fluid. CORONARY ARTERY CALCIFICATION: None. THORACIC AORTA: No significant abnormality. MEDIASTINUM / HEIDI: There are small mediastinal nodes. These are increased in number but are not path ologically enlarged. These are nonspecific. PLEURA: There are small to moderate bilateral pleural effusions No pneumothorax. LUNGS: There is a spiculated density with associated bronchiectasis in the right upper lobe which acc ounts for the density seen on the chest radiograph. This extends to the pleura measures approximately 2.7 cm. ADDITIONAL FINDINGS: None. UPPER ABDOMEN: No acute abnormality SKELETAL SYSTEM: No significant abnormality. IMPRESSION: 1. Parenchymal density in the right upper lobe is noted. I do not see definite cavitation but there i s bronchiectasis associated with this. The appearance is not specific. This could represent an inflam matory/infectious process. This could represent scar. The possibility of a neoplastic etiology is als o included in the differential diagnosis. Signer Name: Kris Drake MD Signed: 12/18/2020 8:54 AM Workstation Name: [id number]
[2020-12-18] MEDS: AZITHROMYCIN/NS 500 MG/250 ML 500 MG/250 ML BAG IV SCH (09:00)
--- NOTE | 2020-12-18 09:33 | Progress Note ---
Assessment and Plan Assessment and plan: (1) Cavitary lesion of lung Current Visit: Yes Status: Acute Plan to address problem: R/o TB versus malignancy CT chest requested Quantiferon gld test and AFB x 3 (2) Hypertensive emergency Current Visit: Yes Status: Acute Plan to address problem: Medications adjusted IV Hydralazine prn q3h (3) Renal failure (ARF), acute on chronic Current Visit: Yes Status: Acute Qualifiers: Acute renal failure type: unspecified Chronic kidney disease stage: unspecified stage Qualified Code(s): N17.9 - Acute kidney failure, unspecified; N18.9 - Chronic kidney disease, unspecified Plan to address problem: Renal consult (4) CHF exacerbation Current Visit: Yes Status: Acute Qualifiers: Heart failure type: unspecified Qualified Code(s): I50.9 - Heart failure, unspecified Plan to address problem: On IV lasix q24h ECHO for EF (5) GERD (gastroesophageal reflux disease) Current Visit: Yes Status: Chronic Qualifiers: Esophagitis presence: without esophagitis Qualified Code(s): K21.9 - Gastro-esophageal reflux disease without esophagitis Plan to address problem: on protonix (6) HLD (hyperlipidemia) Current Visit: Yes Status: Chronic Qualifiers: Hyperlipidemia type: mixed hyperlipidemia Qualified Code(s): E78.2 - Mixed hyperlipidemia Plan to address problem: On Statins (7) DVT prophylaxis Current Visit: Yes Status: Acute Plan to address problem: on Heparin and GI prophylaxis 12/18/2020 -CT chest showed cavitary lesion, TB versus neoplasm; ID consulted -Patient is off oxygen and doing well -Blood pressure is still uncontrolled and I added clonidine to his medication regimen, and we will continue to follow -Patient's creatinine 4.3 and GFR is 17, unknown baseline and will put a consult for nephrology -Patient has elevated BNP and troponin level, cardiology consulted -Patient's hemoglobin is 6.7 this morning a unit of packed RBC was ordered. Will monitor posttransfusion H&H. History Interval history: Patient was seen and evaluated this morning Patient was alert and oriented Patient was off oxygen Hospitalist Physical - Physical exam Narrative exam: Not in cardiopulmonary distress. The patient appeared well nourished and normally developed. Vital signs as documented. Head exam is unremarkable. No scleral icterus . Neck is without jugular venous distension, thyromegaly, or carotid bruits. Lungs are clear to auscultation. Cardiac exam reveals regular rate and Rhythm. Abdominal exam reveals normal bowel sounds, nontender, no organomegaly. Extremities are nonedematous and both femoral and pedal pulses are normal. [employer]: Alert and oriented 3. No focal weakness. - Constitutional Vitals: Temp Pulse Resp BP Pulse Ox 98.3 F 77 15 197/98 97 12/17/20 19:36 12/18/20 08:58 12/18/20 07:22 12/18/20 08:58 12/18/20 08:00 General appearance: Present: mild distress, well-nourished HEART Score - HEART Score Troponin: Troponin T 0.234 ng/mL (0.00-0.029) H* 12/17/20 Unknown Results - Labs CBC & Chem 7: 12/18/20 04:57 12/18/20 08:45 Labs: Laboratory Last Values WBC 7.2 K/mm3 (4.5-11.0) 12/18/20 04:57 RBC 2.32 M/mm3 (3.65-5.03) L 12/18/20 04:57 Hgb 6.9 gm/dl (11.8-15.2) L 12/18/20 04:57 Hct 20.0 % (35.5-45.6) L 12/18/20 04:57 MCV 85 fl (84-94) 12/18/20 04:57 MCH 30 pg (28-32) 12/18/20 04:57 MCHC 35 % (32-34) H 12/18/20 04:57 RDW 17.7 % (13.2-15.2) H 12/18/20 04:57 Plt Count 150 K/mm3 (140-440) 12/18/20 04:57 Lymph % (Auto) 11.6 % (13.4-35.0) L 12/18/20 04:57 [place] % (Auto) 9.4 % (0.0-7.3) H 12/18/20 04:57 Eos % (Auto) 0.1 % (0.0-4.3) 12/18/20 04:57 Baso % (Auto) 0.3 % (0.0-1.8) 12/18/20 04:57 Lymph # (Auto) 0.8 K/mm3 (1.2-5.4) L 12/18/20 04:57 [place] # (Auto) 0.7 K/mm3 (0.0-0.8) 12/18/20 04:57 Eos # (Auto) 0.0 K/mm3 (0.0-0.4) 12/18/20 04:57 Baso # (Auto) 0.0 K/mm3 (0.0-0.1) 12/18/20 04:57 Seg Neutrophils % 78.6 % (40.0-70.0) H 12/18/20 04:57 Seg Neutrophils # 5.7 K/mm3 (1.8-7.7) 12/18/20 04:57 Sodium 141 mmol/L (137-145) 12/18/20 04:57 Potassium 3.9 mmol/L (3.6-5.0) 12/18/20 04:57 Chloride 111.7 mmol/L (98-107) H 12/18/20 04:57 Carbon Dioxide 20 mmol/L (22-30) L 12/18/20 04:57 Anion Gap 13 mmol/L 12/18/20 04:57 BUN 73 mg/dL (9-20) H 12/18/20 04:57 Creatinine 4.3 mg/dL (0.8-1.3) H 12/18/20 04:57 Estimated GFR 17 ml/min 12/18/20 04:57 BUN/Creatinine Ratio 17 % 12/18/20 04:57 Glucose 145 mg/dL (75-100) H 12/18/20 04:57 Hemoglobin A1c 6.4 % (4-6) H 12/17/20 03:10 Calcium 8.1 mg/dL (8.4-10.2) L 12/18/20 04:57 Total Bilirubin 0.30 mg/dL (0.1-1.2) 12/18/20 04:57 AST 16 units/L (5-40) 12/18/20 04:57 ALT 32 units/L (7-56) 12/18/20 04:57 Alkaline Phosphatase 98 units/L (35-129) 12/18/20 04:57 Total Creatine Kinase 289 units/L (55-170) H 12/18/20 00:47 CK-MB (CK-2) 7.5 ng/mL (0.0-4.0) H 12/18/20 00:47 CK-MB (CK-2) Rel Index 2.5 (0-4) 12/18/20 00:47 Troponin T 0.234 ng/mL (0.00-0.029) H* 12/17/20 Unknown NT-Pro-B Natriuret Pep 95739 pg/mL (0-900) H 12/17/20 Unknown Total Protein 5.8 g/dL (6.3-8.2) L 12/18/20 04:57 Albumin 3.1 g/dL (3.9-5) L 12/18/20 04:57 Albumin/Globulin Ratio 1.1 % 12/18/20 04:57 Triglycerides 104 mg/dL (2-149) 12/17/20 Unknown Cholesterol 179 mg/dL (50-199) 12/17/20 Unknown LDL Cholesterol Direct 107 mg/dL (50-130) 12/17/20 Unknown HDL Cholesterol 75 mg/dL (40-59) H 12/17/20 Unknown Cholesterol/HDL Ratio 2.38 % 12/17/20 Unknown Blood Type B POSITIVE 12/17/20 04:15 Antibody Screen Negative 12/17/20 04:15 Crossmatch See Detail 12/17/20 04:15 Active Medications - Current Medications Current Medications: Generic Name Dose Route Start Last Admin Trade Name Freq PRN Reason Stop Dose Admin Acetaminophen 650 mg 12/17/20 15:26 Acetaminophen 325 Mg Tab PO Q4H PRN Pain MILD(1-3)/Fever >100.5/HENDRICKSON Amlodipine Besylate 10 mg 12/17/20 16:00 12/17/20 16:25 Amlodipine 10 Mg Tab PO 10 mg DAILY [facility] Administration Atorvastatin Calcium 40 mg 12/17/20 22:00 12/17/20 22:07 Atorvastatin 40 Mg Tab PO 40 mg QHS [facility] Administration Bumetanide 2 mg 12/17/20 18:00 12/18/20 06:24 Bumetanide 1 Mg Tab PO 2 mg 0600,1800 [facility] Administration Diphenhydramine HCl 25 mg 12/17/20 15:25 Diphenhydramine 25 Mg Cap PO Q6HR PRN Allergy Symptoms Famotidine 10 mg 12/17/20 22:00 12/17/20 22:07 Famotidine 10 Mg Tab PO 10 mg BID [facility] Administration Heparin Sodium (Porcine) 5,000 unit 12/18/20 10:00 Heparin 5,000 Unit/1 Ml Vial SUB-Q Q12HR [facility] Hydralazine HCl 100 mg 12/17/20 20:00 12/17/20 19:57 Hydralazine 100 Mg Tab PO 100 mg TID [facility] Administration Hydralazine HCl 10 mg 12/18/20 07:48 Hydralazine 20 Mg/1 Ml Inj IV Q3H PRN Blood Pressure Hydralazine HCl 50 mg 12/18/20 08:00 12/18/20 08:58 Hydralazine 25 Mg Tab PO 50 mg Q8HR [facility] Administration Hydromorphone HCl 0.5 mg 12/17/20 15:26 12/17/20 20:28 Hydromorphone 1 Mg/1 Ml Inj IV 0.5 mg Q3H PRN Administration Pain , Severe (7-10) Sodium Chloride 1,000 mls @ 75 mls/hr 12/17/20 15:30 Nacl 0.9% 1000 Ml IV DIRECT [facility] Azithromycin 500 mg in 250 mls @ 250 mls/hr 12/18/20 08:00 12/18/20 09:00 Zithromax/Ns IV 250 mls/hr Q24H [facility] Administration Ceftriaxone Sodium 2 gm in 100 mls @ 200 mls/hr 12/18/20 10:00 Rocephin/Ns 2 Gm/100 Ml IV Q24HR [facility] Protocol Methylprednisolone 4 mg 12/18/20 10:00 Methylprednisolone 4 Mg Tab PO QDAY [facility] Metoclopramide HCl 10 mg 12/17/20 15:26 Metoclopramide 10 Mg/2 Ml Inj IV Q6H PRN Nausea And Vomiting Metolazone 5 mg 12/17/20 17:00 12/18/20 06:34 Metolazone 5 Mg Tab PO 5 mg DAILY@0600 [facility] Administration Ondansetron HCl 4 mg 12/17/20 15:26 Ondansetron 4 Mg/2 Ml Inj IV Q8H PRN Nausea And Vomiting Oxycodone/Acetaminophen 1 tab 12/17/20 15:26 Oxycodone /Acetaminophen 5-325mg Tab PO Q6H PRN Pain, Moderate (4-6) Promethazine HCl 25 mg 12/17/20 15:26 Promethazine 25 Mg Rect Supp NE Q6H PRN N/V IF NPO AND NO IV ACCESS Sodium Chloride 10 ml 12/17/20 22:00 12/17/20 22:09 Sodium Chloride 0.9% 10 Ml Flush Syringe IV 10 ml BID [facility] Administration Sodium Chloride 10 ml 12/17/20 15:26 12/18/20 08:58 Sodium Chloride 0.9% 10 Ml Flush Syringe IV 10 ml PRN PRN Administration LINE FLUSH
[2020-12-18 09:36] LABS: C-Reactive Protein 0.2 mg/dL (0.00-1.30)
--- NOTE | 2020-12-18 09:51 | Consultation ---
History of Present Illness Consult date: 12/18/20 Consult reason: shortness of breath History of present illness: 55 AAM presenting with shortness of breath. Patient denies chest pain. Patient moved from [place] recently. Last year patient had a stress test done in [place] reportedly normal per patient. PMHx is pertinent for COPD, HYN, Type II DM. Labs are pertinent for chronic renal failure, and chronic anemia. CXR showing RUL cavitary lesion ? neoplasm vs TB. Cardiology consulted for non-specific troponin elevation. Past History Past Medical History: COPD, diabetes, hypertension Social history: smoking Medications and Allergies Allergies Allergy/AdvReac Type Severity Reaction Status Date / Time lisinopril Allergy Angioedema Verified 09/04/20 08:36 Home Medications Medication Instructions Recorded Confirmed Last Taken Type AtorvaSTATin [Lipitor] 40 mg PO DAILY #30 06/02/20 Unknown Rx Bumetanide 2 mg PO BID #60 06/02/20 Unknown Rx amLODIPine 10 mg PO DAILY #30 06/02/20 Unknown Rx hydrALAZINE [Apresoline TAB] 100 mg PO TID #90 tab 06/02/20 Unknown Rx metOLazone [Zaroxolyn] 5 mg PO QDAY #30 06/02/20 Unknown Rx Famotidine [Pepcid] 20 mg PO BID #10 tablet 09/04/20 Unknown Rx diphenhydrAMINE [Benadryl CAP] 25 mg PO Q6HR PRN #30 capsule 09/04/20 Unknown Rx methylPREDNISolone [Medrol 4MG 4 mg PO DAILY #1 tab.ds.pk 09/04/20 Unknown Rx DOSEPAK (21 tabs)] Active Meds: Active Medications Acetaminophen (Acetaminophen 325 Mg Tab) 650 mg PO Q4H PRN PRN Reason: Pain MILD(1-3)/Fever >100.5/HENDRICKSON Amlodipine Besylate (Amlodipine 10 Mg Tab) 10 mg PO DAILY [facility] Last Admin: 12/17/20 16:25 Dose: 10 mg Documented by: Atorvastatin Calcium (Atorvastatin 40 Mg Tab) 40 mg PO QHS [facility] Last Admin: 12/17/20 22:07 Dose: 40 mg Documented by: Bumetanide (Bumetanide 1 Mg Tab) 2 mg PO 0600,1800 [facility] Last Admin: 12/18/20 06:24 Dose: 2 mg Documented by: Clonidine HCl (Clonidine 0.2 Mg Tab) 0.2 mg PO Q12HR [facility] Diphenhydramine HCl (Diphenhydramine 25 Mg Cap) 25 mg PO Q6HR PRN PRN Reason: Allergy Symptoms Famotidine (Famotidine 10 Mg Tab) 10 mg PO BID [facility] Last Admin: 12/17/20 22:07 Dose: 10 mg Documented by: Heparin Sodium (Porcine) (Heparin 5,000 Unit/1 Ml Vial) 5,000 unit SUB-Q Q12HR [facility] Hydralazine HCl (Hydralazine 100 Mg Tab) 100 mg PO TID [facility] Last Admin: 12/17/20 19:57 Dose: 100 mg Documented by: Hydralazine HCl (Hydralazine 20 Mg/1 Ml Inj) 10 mg IV Q3H PRN PRN Reason: Blood Pressure Hydralazine HCl (Hydralazine 25 Mg Tab) 50 mg PO Q8HR [facility] Last Admin: 12/18/20 08:58 Dose: 50 mg Documented by: Hydromorphone HCl (Hydromorphone 1 Mg/1 Ml Inj) 0.5 mg IV Q3H PRN PRN Reason: Pain , Severe (7-10) Last Admin: 12/17/20 20:28 Dose: 0.5 mg Documented by: Sodium Chloride (Nacl 0.9% 1000 Ml) 1,000 mls @ 75 mls/hr IV DIRECT [facility] Azithromycin (Zithromax/Ns) 500 mg in 250 mls @ 250 mls/hr IV Q24H [facility] Last Admin: 12/18/20 09:00 Dose: 250 mls/hr Documented by: Ceftriaxone Sodium (Rocephin/Ns 2 Gm/100 Ml) 2 gm in 100 mls @ 200 mls/hr IV Q24HR [facility]; Protocol Methylprednisolone (Methylprednisolone 4 Mg Tab) 4 mg PO QDAY [facility] Metoclopramide HCl (Metoclopramide 10 Mg/2 Ml Inj) 10 mg IV Q6H PRN PRN Reason: Nausea And Vomiting Metolazone (Metolazone 5 Mg Tab) 5 mg PO DAILY@0600 [facility] Last Admin: 12/18/20 06:34 Dose: 5 mg Documented by: Ondansetron HCl (Ondansetron 4 Mg/2 Ml Inj) 4 mg IV Q8H PRN PRN Reason: Nausea And Vomiting Oxycodone/Acetaminophen (Oxycodone /Acetaminophen 5-325mg Tab) 1 tab PO Q6H PRN PRN Reason: Pain, Moderate (4-6) Promethazine HCl (Promethazine 25 Mg Rect Supp) 25 mg TN Q6H PRN PRN Reason: N/V IF NPO AND NO IV ACCESS Sodium Chloride (Sodium Chloride 0.9% 10 Ml Flush Syringe) 10 ml IV BID [facility] Last Admin: 12/17/20 22:09 Dose: 10 ml Documented by: Sodium Chloride (Sodium Chloride 0.9% 10 Ml Flush Syringe) 10 ml IV PRN PRN PRN Reason: LINE FLUSH Last Admin: 12/18/20 08:58 Dose: 10 ml Documented by: Review of Systems All systems: negative Physical Examination Vital Signs Temp Pulse Resp BP Pulse Ox 97.9 F 83 18 235/110 98 12/17/20 02:41 12/17/20 02:41 12/17/20 02:41 12/17/20 02:41 12/17/20 02:41 General appearance: no acute distress HEENT: Positive: PERRL Neck: Positive: neck supple Cardiac: Positive: Reg Rate and Rhythm Lungs: Positive: Normal Exam Neuro: Positive: Grossly Intact Abdomen: Positive: Soft Extremities: Absent: edema Results 12/18/20 04:57 12/18/20 08:45 Cardiac Enzymes 12/18/20 12/18/20 12/18/20 Range/Units 00:47 04:57 08:45 AST 16 (5-40) units/L Lactate Dehydrogenase 305 H (91-180) units/L CK-MB (CK-2) 7.5 H (0.0-4.0) ng/mL CBC 12/17/20 12/18/20 Range/Units 22:44 04:57 WBC 6.9 7.2 (4.5-11.0) K/mm3 RBC 2.57 L 2.32 L (3.65-5.03) M/mm3 Hgb 7.6 L 6.9 L (11.8-15.2) gm/dl Hct 21.9 L 20.0 L (35.5-45.6) % Plt Count 157 150 (140-440) K/mm3 Lymph # (Auto) 0.6 L 0.8 L (1.2-5.4) K/mm3 [place] # (Auto) 0.7 0.7 (0.0-0.8) K/mm3 Eos # (Auto) 0.0 0.0 (0.0-0.4) K/mm3 Baso # (Auto) 0.0 0.0 (0.0-0.1) K/mm3 Comprehensive Metabolic Panel 12/17/20 12/18/20 12/18/20 Range/Units 22:44 04:57 08:45 Sodium 139 141 (137-145) mmol/L Potassium 3.9 3.9 (3.6-5.0) mmol/L Chloride 108.0 H 111.7 H (98-107) mmol/L Carbon Dioxide 18 L 20 L (22-30) mmol/L BUN 70 H 73 H (9-20) mg/dL Creatinine 4.3 H 4.3 H (0.8-1.3) mg/dL Glucose 161 H 145 H 151 H (75-100) mg/dL Calcium 8.6 8.1 L (8.4-10.2) mg/dL AST 16 (5-40) units/L ALT 32 (7-56) units/L Alkaline Phosphatase 98 (35-129) units/L Total Protein 5.8 L (6.3-8.2) g/dL Albumin 3.1 L (3.9-5) g/dL - EKG Interpretation EKG: sinus rhythm EKG interpretations - Telemetry EKG Rhythm: Sinus Rhythm Assessment and Plan Non-specific troponin elevation in the setting of chronic renal failure NO signs or symptoms of ACS No acute findings on ECG History of normal stress test per patient in [place] 1 year ago Shortness of breath CXR showing RUL cavitary lesion CT chest pending COPD Nicotine dependence Essential hypertension Type II DM Recommendations: Agree with echocardiogram NO further cardiac work-up is recommended for non-specific troponin trend in the setting of chronic renal failure and profound anemia
[2020-12-18] MEDS ORDERED: NON-FORMULARY EACH (Methylprednisolone [Medrol 4mg Dosepak (21 Tabs)] 4 MG Tab.Ds.Pk) PO SCH (10:00)
[2020-12-18] MEDS ORDERED: methylPREDNISolone 4 MG TAB PO SCH (10:00)
[2020-12-18] MEDS ORDERED: VALSARTAN 160MG TAB PO SCH (10:00)
[2020-12-18] MEDS: cloNIDine 0.2 MG TAB PO SCH ×2 (10:16→22:55)
[2020-12-18] MEDS: FAMOTIDINE 10 MG TAB PO SCH ×2 (10:19→22:56)
[2020-12-18] MEDS: amLODIPine 10 MG TAB PO SCH (10:19)
[2020-12-18] MEDS: cefTRIAXone/NS 2 GM/100 ML 2 GM/100 ML BAG IV SCH (10:19)
[2020-12-18] MEDS: HEPARIN 5,000 UNIT/1 ML VIAL SUB-Q SCH ×2 (10:21→22:55)
[2020-12-18] MEDS ORDERED: SODIUM CHLORIDE 0.9% 500 ML 500 ML ONE (11:16)
[2020-12-18] MEDS: hydrALAZINE 100 MG TAB PO SCH ×3 (13:32→20:15)
--- NOTE | 2020-12-18 14:40 | Event Note ---
Date: 12/18/20 Appreciate renal consult. Patient follows with Dr. Walton for CKD, will change consult to his group.
[2020-12-18 16:19] LABS: Hematocrit 23.1 % (35.5-45.6); Hemoglobin 7.9 gm/dl (11.8-15.2)
[2020-12-19 05:03] LABS: Basophils % (Auto) 0.5 % (0.0-1.8); Eosinophils % (Auto) 0.4 % (0.0-4.3); Hematocrit 21.2 % (35.5-45.6); Hemoglobin 7.3 gm/dl (11.8-15.2); Lymphocytes # (Auto) 0.7 K/mm3 (1.2-5.4); Lymphocytes % (Auto) 13.6 % (13.4-35.0); Mean Corpuscular HGB Conc 34 % (32-34); Mean Corpuscular Volume 84 fl (84-94); Monocytes # (Auto) 0.4 K/mm3 (0.0-0.8); Monocytes % (Auto) 7.1 % (0.0-7.3); Platelet Count 153 K/mm3 (140-440); Red Blood Count 2.52 M/mm3 (3.65-5.03); Red Cell Distribution Width 17.8 % (13.2-15.2)
[2020-12-19 05:14] LABS: Calcium 8.1 mg/dL (8.4-10.2)
[2020-12-19] MEDS: BUMETANIDE 1 MG TAB PO SCH ×2 (06:22→17:35)
[2020-12-19] MEDS: metOLazone 5 MG TAB PO SCH (06:22)
--- NOTE | 2020-12-19 08:30 | Progress Note ---
Assessment and Plan Assessment and plan: (1) Cavitary lesion of lung Current Visit: Yes Status: Acute Plan to address problem: R/o TB versus malignancy CT chest requested Quantiferon gld test and AFB x 3 (2) Hypertensive emergency Current Visit: Yes Status: Acute Plan to address problem: Medications adjusted IV Hydralazine prn q3h (3) Renal failure (ARF), acute on chronic Current Visit: Yes Status: Acute Qualifiers: Acute renal failure type: unspecified Chronic kidney disease stage: unspecified stage Qualified Code(s): N17.9 - Acute kidney failure, unspecified; N18.9 - Chronic kidney disease, unspecified Plan to address problem: Renal consult (4) CHF exacerbation Current Visit: Yes Status: Acute Qualifiers: Heart failure type: unspecified Qualified Code(s): I50.9 - Heart failure, unspecified Plan to address problem: On IV lasix q24h ECHO for EF (5) GERD (gastroesophageal reflux disease) Current Visit: Yes Status: Chronic Qualifiers: Esophagitis presence: without esophagitis Qualified Code(s): K21.9 - Gastro-esophageal reflux disease without esophagitis Plan to address problem: on protonix (6) HLD (hyperlipidemia) Current Visit: Yes Status: Chronic Qualifiers: Hyperlipidemia type: mixed hyperlipidemia Qualified Code(s): E78.2 - Mixed hyperlipidemia Plan to address problem: On Statins (7) DVT prophylaxis Current Visit: Yes Status: Acute Plan to address problem: on Heparin and GI prophylaxis 12/18/2020 -CT chest showed cavitary lesion, TB versus neoplasm; ID consulted -Patient is off oxygen and doing well -Blood pressure is still uncontrolled and I added clonidine to his medication regimen, and we will continue to follow -Patient's creatinine 4.3 and GFR is 17, unknown baseline and will put a consult for nephrology -Patient has elevated BNP and troponin level, cardiology consulted -Patient's hemoglobin is 6.7 this morning a unit of packed RBC was ordered. Will monitor posttransfusion H&H. 12/19/2020 --CT chest showed cavitary lesion, TB versus neoplasm; ID consulted and pending evaluation -Patient is off oxygen and doing well -Blood pressure is is controlled after clonidine started -Patient's creatinine 4.3 and GFR is 17, nephrology consulted and will follow recommendation -Patient has elevated BNP and troponin level, cardiology consulted -Posttransfusion hemoglobin is 7.3 History Interval history: Patient was seen and evaluated this morning Patient was alert and oriented Patient was off oxygen Hospitalist Physical - Physical exam Narrative exam: Not in cardiopulmonary distress. The patient appeared well nourished and normally developed. Vital signs as documented. Head exam is unremarkable. No scleral icterus . Neck is without jugular venous distension, thyromegaly, or carotid bruits. Lungs are clear to auscultation. Cardiac exam reveals regular rate and Rhythm. Abdominal exam reveals normal bowel sounds, nontender, no organomegaly. Extremities are nonedematous and both femoral and pedal pulses are normal. 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 No focal weakness. - Constitutional Vitals: Temp Pulse Resp BP Pulse Ox 98.2 F 64 12 148/70 100 12/19/20 07:39 12/19/20 06:11 12/19/20 06:11 12/19/20 06:11 12/18/20 21:07 General appearance: Present: mild distress, well-nourished HEART Score - HEART Score Troponin: Troponin T 0.234 ng/mL (0.00-0.029) H* 12/17/20 Unknown Results - Labs CBC & Chem 7: 12/19/20 04:46 12/19/20 04:46 Labs: Laboratory Last Values WBC 5.4 K/mm3 (4.5-11.0) 12/19/20 04:46 RBC 2.52 M/mm3 (3.65-5.03) L 12/19/20 04:46 Hgb 7.3 gm/dl (11.8-15.2) L 12/19/20 04:46 Hct 21.2 % (35.5-45.6) L 12/19/20 04:46 MCV 84 fl (84-94) 12/19/20 04:46 MCH 29 pg (28-32) 12/19/20 04:46 MCHC 34 % (32-34) 12/19/20 04:46 RDW 17.8 % (13.2-15.2) H 12/19/20 04:46 Plt Count 153 K/mm3 (140-440) 12/19/20 04:46 Lymph % (Auto) 13.6 % (13.4-35.0) 12/19/20 04:46 [place] % (Auto) 7.1 % (0.0-7.3) 12/19/20 04:46 Eos % (Auto) 0.4 % (0.0-4.3) 12/19/20 04:46 Baso % (Auto) 0.5 % (0.0-1.8) 12/19/20 04:46 Lymph # (Auto) 0.7 K/mm3 (1.2-5.4) L 12/19/20 04:46 [place] # (Auto) 0.4 K/mm3 (0.0-0.8) 12/19/20 04:46 Eos # (Auto) 0.0 K/mm3 (0.0-0.4) 12/19/20 04:46 Baso # (Auto) 0.0 K/mm3 (0.0-0.1) 12/19/20 04:46 Seg Neutrophils % 78.4 % (40.0-70.0) H 12/19/20 04:46 Seg Neutrophils # 4.2 K/mm3 (1.8-7.7) 12/19/20 04:46 D-Dimer 541.77 ng/mlDDU (0-234) H 12/18/20 08:45 Sodium 138 mmol/L (137-145) 12/19/20 04:46 Potassium 4.3 mmol/L (3.6-5.0) 12/19/20 04:46 Chloride 108.7 mmol/L (98-107) H 12/19/20 04:46 Carbon Dioxide 19 mmol/L (22-30) L 12/19/20 04:46 Anion Gap 15 mmol/L 12/19/20 04:46 BUN 72 mg/dL (9-20) H 12/19/20 04:46 Creatinine 4.5 mg/dL (0.8-1.3) H 12/19/20 04:46 Estimated GFR 16 ml/min 12/19/20 04:46 BUN/Creatinine Ratio 16 % 12/19/20 04:46 Glucose 101 mg/dL (75-100) H 12/19/20 04:46 POC Glucose 106 mg/dL (70-105) H 12/18/20 16:57 Hemoglobin A1c 6.4 % (4-6) H 12/17/20 03:10 Calcium 8.1 mg/dL (8.4-10.2) L 12/19/20 04:46 Ferritin 259.5 ng/mL (30.0-300.0) 12/18/20 08:45 Total Bilirubin 0.30 mg/dL (0.1-1.2) 12/18/20 04:57 AST 16 units/L (5-40) 12/18/20 04:57 ALT 32 units/L (7-56) 12/18/20 04:57 Alkaline Phosphatase 98 units/L (35-129) 12/18/20 04:57 Lactate Dehydrogenase 305 units/L (91-180) H 12/18/20 08:45 Total Creatine Kinase 289 units/L (55-170) H 12/18/20 00:47 CK-MB (CK-2) 7.5 ng/mL (0.0-4.0) H 12/18/20 00:47 CK-MB (CK-2) Rel Index 2.5 (0-4) 12/18/20 00:47 Troponin T 0.234 ng/mL (0.00-0.029) H* 12/17/20 Unknown C-Reactive Protein 0.20 mg/dL (0.00-1.30) 12/18/20 08:45 NT-Pro-B Natriuret Pep 74426 pg/mL (0-900) H 12/17/20 Unknown Total Protein 5.8 g/dL (6.3-8.2) L 12/18/20 04:57 Albumin 3.1 g/dL (3.9-5) L 12/18/20 04:57 Albumin/Globulin Ratio 1.1 % 12/18/20 04:57 Triglycerides 104 mg/dL (2-149) 12/17/20 Unknown Cholesterol 179 mg/dL (50-199) 12/17/20 Unknown LDL Cholesterol Direct 107 mg/dL (50-130) 12/17/20 Unknown HDL Cholesterol 75 mg/dL (40-59) H 12/17/20 Unknown Cholesterol/HDL Ratio 2.38 % 12/17/20 Unknown Coronavirus (PCR) Negative (Negative) 12/18/20 09:40 Blood Type B POSITIVE 12/17/20 04:15 Antibody Screen Negative 12/17/20 04:15 Crossmatch See Detail 12/17/20 04:15 Buenrostro/IV: Voiding Method Urinal Active Medications - Current Medications Current Medications: Generic Name Dose Route Start Last Admin Trade Name Freq PRN Reason Stop Dose Admin Acetaminophen 650 mg 12/17/20 15:26 Acetaminophen 325 Mg Tab PO Q4H PRN Pain MILD(1-3)/Fever >100.5/HENDRICKSON Amlodipine Besylate 10 mg 12/17/20 16:00 12/18/20 10:19 Amlodipine 10 Mg Tab PO 10 mg DAILY [facility] Administration Atorvastatin Calcium 40 mg 12/17/20 22:00 12/18/20 22:56 Atorvastatin 40 Mg Tab PO 40 mg QHS [facility] Administration Bumetanide 2 mg 12/17/20 18:00 12/19/20 06:22 Bumetanide 1 Mg Tab PO 2 mg 0600,1800 [facility] Administration Clonidine HCl 0.2 mg 12/18/20 10:00 12/18/20 22:55 Clonidine 0.2 Mg Tab PO 0.2 mg Q12HR [facility] Administration Diphenhydramine HCl 25 mg 12/17/20 15:25 Diphenhydramine 25 Mg Cap PO Q6HR PRN Allergy Symptoms Famotidine 10 mg 12/17/20 22:00 12/18/20 22:56 Famotidine 10 Mg Tab PO 10 mg BID [facility] Administration Heparin Sodium (Porcine) 5,000 unit 12/18/20 10:00 12/18/20 22:55 Heparin 5,000 Unit/1 Ml Vial SUB-Q 5,000 unit Q12HR [facility] Administration Hydralazine HCl 100 mg 12/17/20 20:00 12/18/20 20:15 Hydralazine 100 Mg Tab PO 100 mg TID [facility] Administration Hydralazine HCl 10 mg 12/18/20 07:48 Hydralazine 20 Mg/1 Ml Inj IV Q3H PRN Blood Pressure Hydromorphone HCl 0.5 mg 12/17/20 15:26 12/17/20 20:28 Hydromorphone 1 Mg/1 Ml Inj IV 0.5 mg Q3H PRN Administration Pain , Severe (7-10) Sodium Chloride 1,000 mls @ 75 mls/hr 12/17/20 15:30 Nacl 0.9% 1000 Ml IV DIRECT [facility] Azithromycin 500 mg in 250 mls @ 250 mls/hr 12/18/20 08:00 12/18/20 10:00 Zithromax/Ns IV Infused Q24H [facility] Infusion Ceftriaxone Sodium 2 gm in 100 mls @ 200 mls/hr 12/18/20 10:00 12/18/20 11:00 Rocephin/Ns 2 Gm/100 Ml IV Infused Q24HR N[facility] Infusion Protocol Methylprednisolone 4 mg 12/18/20 10:00 12/18/20 14:57 Methylprednisolone 4 Mg Tab PO 4 mg QDAY NICKO Administration Metoclopramide HCl 10 mg 12/17/20 15:26 Metoclopramide 10 Mg/2 Ml Inj IV Q6H PRN Nausea And Vomiting Metolazone 5 mg 12/17/20 17:00 12/19/20 06:22 Metolazone 5 Mg Tab PO 5 mg DAILY@0600 NICKO Administration Ondansetron HCl 4 mg 12/17/20 15:26 Ondansetron 4 Mg/2 Ml Inj IV Q8H PRN Nausea And Vomiting Oxycodone/Acetaminophen 1 tab 12/17/20 15:26 Oxycodone /Acetaminophen 5-325mg Tab PO Q6H PRN Pain, Moderate (4-6) Promethazine HCl 25 mg 12/17/20 15:26 Promethazine 25 Mg Rect Supp MD Q6H PRN N/V IF NPO AND NO IV ACCESS Sodium Chloride 10 ml 12/17/20 22:00 12/18/20 22:56 Sodium Chloride 0.9% 10 Ml Flush Syringe IV 10 ml BID NICKO Administration Sodium Chloride 10 ml 12/17/20 15:26 12/18/20 08:58 Sodium Chloride 0.9% 10 Ml Flush Syringe IV 10 ml PRN PRN Administration LINE FLUSH
[2020-12-19] MEDS: AZITHROMYCIN/NS 500 MG/250 ML 500 MG/250 ML BAG IV SCH (08:52)
[2020-12-19] MEDS: hydrALAZINE 100 MG TAB PO SCH ×3 (08:53→20:42)
--- NOTE | 2020-12-19 09:59 | Progress Note ---
Assessment and Plan Non-specific troponin elevation in the setting of chronic renal failure No signs or symptoms of ACS No signs of heart failure on exam No acute findings on ECG History of normal stress test per patient in [place] 1 year ago Shortness of breath CXR showing RUL cavitary lesion CT chest showing RUL parenchymal density ? neoplastic COPD Nicotine dependence Essential hypertension Type II DM Recommendations: Echocardiogram pending No further cardiac work-up is recommended for non-specific troponin trend in the setting of chronic renal failure and profound anemia Subjective Date of service: 12/19/20 Principal diagnosis: Shortness of breath Interval history: No interval changes cardiac ibarra No events on tele Objective Vital Signs Temp Pulse Pulse Resp BP BP Pulse Ox 12/19/20 08:30 73 21 149/69 12/19/20 08:21 75 17 153/83 12/19/20 08:11 77 23 153/83 12/19/20 08:00 65 70 13 153/83 12/19/20 07:51 65 12 154/81 12/19/20 07:41 65 12 154/81 12/19/20 07:39 98.2 F 12/19/20 07:31 64 13 154/81 12/19/20 07:21 64 14 144/78 12/19/20 07:11 64 13 144/78 12/19/20 07:00 70 17 144/78 12/19/20 06:51 64 12 141/65 12/19/20 06:41 63 21 141/65 12/19/20 06:31 67 14 141/65 12/19/20 06:21 74 19 148/70 12/19/20 06:11 64 12 148/70 12/19/20 06:00 63 13 148/70 12/19/20 05:51 62 15 146/71 12/19/20 05:41 63 13 146/71 12/19/20 05:30 64 11 L 146/71 12/19/20 05:21 64 11 L 150/71 12/19/20 05:11 64 12 150/71 12/19/20 05:00 63 13 150/71 12/19/20 04:51 66 14 151/64 12/19/20 04:41 63 12 151/64 12/19/20 04:31 70 14 151/64 12/19/20 04:21 65 11 L 145/70 12/19/20 04:11 64 17 145/70 12/19/20 04:00 63 63 12 145/70 12/19/20 03:51 63 12 149/70 12/19/20 03:41 64 12 149/70 12/19/20 03:30 64 13 149/70 12/19/20 03:21 64 12 150/76 12/19/20 03:11 63 12 150/76 12/19/20 03:00 65 11 L 150/76 12/19/20 02:51 65 11 L 150/69 12/19/20 02:40 68 12 150/69 12/19/20 02:30 65 12 150/69 12/19/20 02:21 67 12 145/72 12/19/20 02:11 68 12 145/72 12/19/20 02:00 66 12 145/72 12/19/20 01:51 66 12 148/70 12/19/20 01:41 75 14 148/70 12/19/20 01:30 70 13 148/70 12/19/20 01:21 66 12 147/73 12/19/20 01:11 67 12 147/73 12/19/20 01:00 68 12 147/73 12/19/20 00:51 69 12 150/74 12/19/20 00:41 71 11 L 150/74 12/19/20 00:30 73 14 150/74 12/19/20 00:21 73 14 151/72 12/19/20 00:11 70 17 151/72 12/19/20 00:00 97.6 F 69 69 12 151/72 12/18/20 23:51 71 16 153/76 12/18/20 23:41 71 12 153/76 12/18/20 23:30 72 11 L 12/18/20 23:20 72 14 153/76 12/18/20 23:11 73 12 153/76 12/18/20 23:00 71 12 153/76 12/18/20 22:57 70 13 154/77 12/18/20 22:55 146/92 12/18/20 22:51 69 11 L 154/77 12/18/20 22:41 71 13 154/77 12/18/20 22:30 70 13 154/77 12/18/20 22:21 70 14 146/89 02/20/21 22:11 70 12 146/89 0220/21 22:00 70 16 146/89 20/21 21:51 70 12 159/79 0220/21 21:41 70 13 159/79 0220/21 21:31 76 13 159/79 0220/21 21:21 71 12 158/77 20/21 21:11 69 12 158/77 20/21 21:07 100 12/18/20 21:00 68 12 158/77 20/21 20:51 69 13 159/75 0220/21 20:41 70 13 159/75 0220/21 20:30 71 17 159/75 0220/21 20:21 68 13 158/75 0220/21 20:11 70 14 158/75 0220/21 20:00 97.6 F 72 70 16 158/75 12/18/ 19:51 76 18 160/77 20/21 19:41 68 13 160/77 12/18/ 19:30 68 14 160/77 12/18/20 19:21 70 18 167/77 12/18/20 19:11 77 19 166/84 12/18/ 19:00 69 10 L 166/84 12/18/ 18:51 69 11 L 172/86 12/18/20 18:41 69 12 172/86 12/18/20 18:30 71 16 172/86 12/18/20 18:21 69 13 21 18:15 77 15 12/18/20 15:00 97.8 F 70 166/89 12/18/20 14:59 69 14 161/87 97 12/18/20 14:57 69 14 161/87 97 12/18/20 14:51 66 13 161/87 21 14:41 66 11 L 161/87 12/18/ 14:30 71 22 161/87 20/21 14:21 64 12 166/87 12/18/20 14:11 66 10 L 166/87 12/18/ 14:00 66 12 166/87 12/18/20 13:51 66 13 163/89 20/21 13:41 66 11 L 163/89 12/18/20 13:37 98.1 F 65 16 163/89 96 12/18/20 13:31 66 16 163/89 12/18/20 13:21 66 33 H 163/89 12/18/20 13:11 67 12 163/89 12/18/20 13:07 98 F 66 16 163/89 97 12/18/20 13:00 68 13 163/89 12/18/20 12:51 68 11 L 185/90 12/18/20 12:41 72 16 185/90 12/18/20 12:37 98.1 F 78 16 185/90 97 12/18/20 12:31 72 12 185/90 12/18/20 12:21 72 14 172/87 12/18/20 12:11 79 20 172/87 12/18/20 12:08 97.9 F 79 16 171/89 97 12/18/20 12:07 97.9 F 79 16 171/89 97 12/18/20 12:00 71 12 171/89 12/18/20 11:51 71 13 172/87 12/18/20 11:41 72 14 172/87 12/18/20 11:37 98 F 74 16 172/87 97 12/18/20 11:30 72 13 165/86 12/18/20 11:23 98.1 F 73 15 165/86 97 12/18/20 11:22 98.1 F 79 15 165/86 97 12/18/20 11:21 72 16 159/78 12/18/20 11:11 74 14 159/78 12/18/20 11:00 81 15 159/78 12/18/20 10:51 75 11 L 172/93 12/18/20 10:41 78 14 172/93 12/18/20 10:30 80 15 172/93 12/18/20 10:21 79 21 171/89 12/18/20 10:19 79 171/89 12/18/20 10:16 79 171/89 12/18/20 10:11 81 19 186/89 12/18/20 10:01 83 13 186/89 - Physical Examination HEENT: Positive: PERRL Neck: Positive: neck supple Cardiac: Positive: Reg Rate and Rhythm Lungs: Positive: Decreased Breath Sounds Neuro: Positive: Grossly Intact Abdomen: Positive: Soft Extremities: Absent: edema - Labs and Meds CBC 12/18/20 12/19/20 Range/Units 16:01 04:46 WBC 5.4 (4.5-11.0) K/mm3 RBC 2.52 L (3.65-5.03) M/mm3 Hgb 7.9 L 7.3 L (11.8-15.2) gm/dl Hct 23.1 L 21.2 L (35.5-45.6) % Plt Count 153 (140-440) K/mm3 Lymph # (Auto) 0.7 L (1.2-5.4) K/mm3 [place] # (Auto) 0.4 (0.0-0.8) K/mm3 Eos # (Auto) 0.0 (0.0-0.4) K/mm3 Baso # (Auto) 0.0 (0.0-0.1) K/mm3 Comprehensive Metabolic Panel 12/19/20 Range/Units 04:46 Sodium 138 (137-145) mmol/L Potassium 4.3 (3.6-5.0) mmol/L Chloride 108.7 H (98-107) mmol/L Carbon Dioxide 19 L (22-30) mmol/L BUN 72 H (9-20) mg/dL Creatinine 4.5 H (0.8-1.3) mg/dL Glucose 101 H (75-100) mg/dL Calcium 8.1 L (8.4-10.2) mg/dL
[2020-12-19] MEDS ORDERED: METOCLOPRAMIDE 10 MG/2 ML INJ IV PRN (10:00)
[2020-12-19] MEDS: HEPARIN 5,000 UNIT/1 ML VIAL SUB-Q SCH ×2 (10:11→22:20)
[2020-12-19] MEDS: FAMOTIDINE 10 MG TAB PO SCH ×2 (10:12→22:21)
[2020-12-19] MEDS: cloNIDine 0.2 MG TAB PO SCH ×2 (10:12→22:20)
[2020-12-19] MEDS: cefTRIAXone/NS 2 GM/100 ML 2 GM/100 ML BAG IV SCH (10:12)
[2020-12-19] MEDS: amLODIPine 10 MG TAB PO SCH (10:12)
--- NOTE | 2020-12-19 11:49 | Consultation ---
History of Present Illness - Reason for Consult Consult date: 12/19/20 chronic renal failure Requesting physician: MINISTERIO SILVEIRA - History of Present Illness This is a 55 yo M with past medical history of hypertension, HFpEF, COPD, anemia of chronic illness, CKD stage 4 well known to me from outpatient f/u, who presents to [facility] after brought by EMS for progressive shortness of breath. CXR showed 2.5cm cavitary lesion at RUL, dd incl. neoplasm vs infectious, rule out TB, along with evidence of CHF. CT chest showed no definite cavitation but bronchiectasis was noted, neoplasm cannot be ruled out. Patient denies recent travel. Patient denies recent international travel. Patient denies exposure to the novel coronavirus. Patient denies sick contacts. Patient denies fever and chills. Patient denies cough. Patient denies diarrhea. Patient denies coming in contact with anybody with symptoms of the novel coronavirus. Labs showed elevated d-dimer > 540, LDH > 300, proBNP > 41098, COVID19 was negative. elevated BUN/Cr was noted at 73/4.3mg/dl for which renal consult is requested. Patient has known CKD, renal function marginally worse than pt's recent baseline (BUN/Cr was 44/3.63mg/dl in 08/2020). Pt denies NSAIDs, IV contrast exposure. Past History Past Medical History: COPD, diabetes, hypertension Social history: smoking Medications and Allergies Allergies Allergy/AdvReac Type Severity Reaction Status Date / Time lisinopril Allergy Angioedema Verified 09/04/20 08:36 Home Medications Medication Instructions Recorded Confirmed Last Taken Type AtorvaSTATin [Lipitor] 40 mg PO DAILY #30 06/02/20 Unknown Rx Bumetanide 2 mg PO BID #60 06/02/20 Unknown Rx amLODIPine 10 mg PO DAILY #30 06/02/20 Unknown Rx hydrALAZINE [Apresoline TAB] 100 mg PO TID #90 tab 06/02/20 Unknown Rx metOLazone [Zaroxolyn] 5 mg PO QDAY #30 06/02/20 Unknown Rx Famotidine [Pepcid] 20 mg PO BID #10 tablet 09/04/20 Unknown Rx diphenhydrAMINE [Benadryl CAP] 25 mg PO Q6HR PRN #30 capsule 09/04/20 Unknown Rx methylPREDNISolone [Medrol 4MG 4 mg PO DAILY #1 tab.ds.pk 09/04/20 Unknown Rx DOSEPAK (21 tabs)] Active Meds: Active Medications Acetaminophen (Acetaminophen 325 Mg Tab) 650 mg PO Q4H PRN PRN Reason: Pain MILD(1-3)/Fever >100.5/[place] Amlodipine Besylate (Amlodipine 10 Mg Tab) 10 mg PO DAILY [facility] Last Admin: 12/19/20 10:12 Dose: 10 mg Documented by: Atorvastatin Calcium (Atorvastatin 40 Mg Tab) 40 mg PO QHS [facility] Last Admin: 12/18/20 22:56 Dose: 40 mg Documented by: Bumetanide (Bumetanide 1 Mg Tab) 2 mg PO 0600,1800 [facility] Last Admin: 12/19/20 06:22 Dose: 2 mg Documented by: Clonidine HCl (Clonidine 0.2 Mg Tab) 0.2 mg PO Q12HR [facility] Last Admin: 12/19/20 10:12 Dose: 0.2 mg Documented by: Diphenhydramine HCl (Diphenhydramine 25 Mg Cap) 25 mg PO Q6HR PRN PRN Reason: Allergy Symptoms Famotidine (Famotidine 10 Mg Tab) 10 mg PO BID [facility] Last Admin: 12/19/20 10:12 Dose: 10 mg Documented by: Heparin Sodium (Porcine) (Heparin 5,000 Unit/1 Ml Vial) 5,000 unit SUB-Q Q12HR [facility] Last Admin: 12/19/20 10:11 Dose: 5,000 unit Documented by: Hydralazine HCl (Hydralazine 100 Mg Tab) 100 mg PO TID [facility] Last Admin: 12/19/20 08:53 Dose: 100 mg Documented by: Hydralazine HCl (Hydralazine 20 Mg/1 Ml Inj) 10 mg IV Q3H PRN PRN Reason: Blood Pressure Hydromorphone HCl (Hydromorphone 1 Mg/1 Ml Inj) 0.5 mg IV Q3H PRN PRN Reason: Pain , Severe (7-10) Last Admin: 12/17/20 20:28 Dose: 0.5 mg Documented by: Sodium Chloride (Nacl 0.9% 1000 Ml) 1,000 mls @ 75 mls/hr IV DIRECT NICKO Azithromycin (Zithromax/Ns) 500 mg in 250 mls @ 250 mls/hr IV Q24H [facility] Last Admin: 12/19/20 08:52 Dose: 250 mls/hr Documented by: Ceftriaxone Sodium (Rocephin/Ns 2 Gm/100 Ml) 2 gm in 100 mls @ 200 mls/hr IV Q24HR [facility]; Protocol Last Admin: 12/19/20 10:12 Dose: 200 mls/hr Documented by: Metoclopramide HCl (Metoclopramide 10 Mg/2 Ml Inj) 5 mg IV Q6H PRN PRN Reason: Nausea And Vomiting Metolazone (Metolazone 5 Mg Tab) 5 mg PO DAILY@0600 [facility] Last Admin: 12/19/20 06:22 Dose: 5 mg Documented by: Ondansetron HCl (Ondansetron 4 Mg/2 Ml Inj) 4 mg IV Q8H PRN PRN Reason: Nausea And Vomiting Oxycodone/Acetaminophen (Oxycodone /Acetaminophen 5-325mg Tab) 1 tab PO Q6H PRN PRN Reason: Pain, Moderate (4-6) Promethazine HCl (Promethazine 25 Mg Rect Supp) 25 mg GA Q6H PRN PRN Reason: N/V IF NPO AND NO IV ACCESS Sodium Chloride (Sodium Chloride 0.9% 10 Ml Flush Syringe) 10 ml IV BID [facility] Last Admin: 12/19/20 10:12 Dose: 10 ml Documented by: Sodium Chloride (Sodium Chloride 0.9% 10 Ml Flush Syringe) 10 ml IV PRN PRN PRN Reason: LINE FLUSH Last Admin: 12/18/20 08:58 Dose: 10 ml Documented by: Review of Systems Constitutional: fatigue, weakness, malaise Cardiovascular: shortness of breath, dyspnea on exertion Exam - Vital Signs Vital signs: Vital Signs Temp Pulse Resp BP Pulse Ox 97.9 F 83 18 235/110 98 12/17/20 02:41 12/17/20 02:41 12/17/20 02:41 12/17/20 02:41 12/17/20 02:41 - General Appearance General appearance: well-developed, well-nourished, appears stated age EENT: ATNC, PERRL, mucous membranes moist Neck: Present: neck supple Respiratory: Clear to Ascultation Heart: regular, S1S2 Gastrointestinal: Present: normoactive bowel sounds Integumentary: no rash, other (no edema ) Neurologic: no focal deficit, alert and oriented x3, strength 5/5, CN 3-12 intact Psychiatric: mood/affect appropriate, cooperative Results - Lab Results 12/19/20 04:46 12/19/20 04:46 Most recent lab results Calcium 8.1 mg/dL (8.4-10.2) L 12/19/20 04:46 Assessment and Plan - Patient Problems (1) Acute on chronic heart failure with preserved ejection fraction (HFpEF) Current Visit: Yes Status: Acute Plan to address problem: cont diuresis with bumex 2mg po bid, cont Na/fluid restriction to 1.5L/day. strict I/Os, daily weight. follow cardiology recommendations (2) Hypertensive chronic kidney disease with stage 1 through stage 4 chronic kidney disease, or unspecified chronic kidney disease Current Visit: Yes Status: Acute Plan to address problem: monitor BP on current meds (3) Chronic kidney disease, stage 4 (severe) Current Visit: Yes Status: Acute Plan to address problem: progressive CKD stage 4, d/t presumed hypertensive nephrosclerosis.pt without acute uremic symptoms, electrolyte imbalance, no indication for renal replacement therapy at present. Start sodium bicarb 650mg bid for treatment of met acidosis. avoid further nephrotoxins, NSAIDs, IV contrast. (4) Anemia in chronic illness Current Visit: Yes Status: Acute Plan to address problem: s/p 1 PRBC transfusion. start EPO [id number] q week, hematology follow up as outpatient (5) Metabolic acidosis Current Visit: Yes Status: Acute Plan to address problem: start sodium bicarb 650mg po bid.
--- NOTE | 2020-12-19 13:17 | Consultation ---
History of Present Illness - Reason for Consult Consult date: 12/19/20 cavitary lesion Requesting physician: LETTY SHARMA - History of Present Illness The patient is a 55-year-old male with COPD, hypertension, diabetes mellitus type 2, CKD came into the emergency room due to shortness of breath of breath. It seems, he had ran out of his medications. Upon evaluation in the ER, he has been afebrile. Labs showed no leukocytosis, did have evidence of anemia with hemoglobin of 6.0, creatinine 4.0, [place] proBNP [place] [address]. COVID-[address] chest revealed a parenchymal density in the right upper lobe, no specific cavitation but bronchiectasis associated with it, suspicion for infectious/inflammatory/neoplastic process was raised. Infectious diseases was consulted for additional evaluation. Has remained afebrile. On room air. Born in [place]. No history of international travel. No history of incarceration. No history of homelessness. 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 Denies any substance abuse. Review of Systems: General: no fevers,chills or rigors HEENT: no new visual disturbance Respiratory: cough, shortness of breath + Cardiovascular: No chest pain, syncope Gastrointestinal: No nausea, vomiting or diarrhea Genitourinary: No dysuria or hematuria Musculoskeletal: No new or worsening neck pain or back pain Neurologic: No headaches, seizures Hematologic: No easy bruising or bleeding Endocrine: No night sweats or acute weight loss Skin: negative for rash, jaundice Psychiatric: No suicidal or homicidal ideation Past History Past Medical History: COPD, diabetes, hypertension Social history: smoking Medications and Allergies Allergies Allergy/AdvReac Type Severity Reaction Status Date / Time lisinopril Allergy Angioedema Verified 09/04/20 08:36 Home Medications Medication Instructions Recorded Confirmed Last Taken Type AtorvaSTATin [Lipitor] 40 mg PO DAILY #30 06/02/20 Unknown Rx Bumetanide 2 mg PO BID #60 06/02/20 Unknown Rx amLODIPine 10 mg PO DAILY #30 06/02/20 Unknown Rx hydrALAZINE [Apresoline TAB] 100 mg PO TID #90 tab 06/02/20 Unknown Rx metOLazone [Zaroxolyn] 5 mg PO QDAY #30 06/02/20 Unknown Rx Famotidine [Pepcid] 20 mg PO BID #10 tablet 09/04/20 Unknown Rx diphenhydrAMINE [Benadryl CAP] 25 mg PO Q6HR PRN #30 capsule 09/04/20 Unknown Rx methylPREDNISolone [Medrol 4MG 4 mg PO DAILY #1 tab.ds.pk 09/04/20 Unknown Rx DOSEPAK (21 tabs)] Active Meds: Active Medications Acetaminophen (Acetaminophen 325 Mg Tab) 650 mg PO Q4H PRN PRN Reason: Pain MILD(1-3)/Fever >100.5/[place] Amlodipine Besylate (Amlodipine 10 Mg Tab) 10 mg PO DAILY [facility] Last Admin: 12/19/20 10:12 Dose: 10 mg Documented by: Atorvastatin Calcium (Atorvastatin 40 Mg Tab) 40 mg PO QHS [facility] Last Admin: 12/18/20 22:56 Dose: 40 mg Documented by: Bumetanide (Bumetanide 1 Mg Tab) 2 mg PO 0600,1800 [facility] Last Admin: 12/19/20 06:22 Dose: 2 mg Documented by: Clonidine HCl (Clonidine 0.2 Mg Tab) 0.2 mg PO Q12HR [facility] Last Admin: 12/19/20 10:12 Dose: 0.2 mg Documented by: Diphenhydramine HCl (Diphenhydramine 25 Mg Cap) 25 mg PO Q6HR PRN PRN Reason: Allergy Symptoms Famotidine (Famotidine 10 Mg Tab) 10 mg PO BID [facility] Last Admin: 12/19/20 10:12 Dose: 10 mg Documented by: Heparin Sodium (Porcine) (Heparin 5,000 Unit/1 Ml Vial) 5,000 unit SUB-Q Q12HR [facility] Last Admin: 12/19/20 10:11 Dose: 5,000 unit Documented by: Hydralazine HCl (Hydralazine 100 Mg Tab) 100 mg PO TID [facility] Last Admin: 12/19/20 08:53 Dose: 100 mg Documented by: Hydralazine HCl (Hydralazine 20 Mg/1 Ml Inj) 10 mg IV Q3H PRN PRN Reason: Blood Pressure Hydromorphone HCl (Hydromorphone 1 Mg/1 Ml Inj) 0.5 mg IV Q3H PRN PRN Reason: Pain , Severe (7-10) Last Admin: 12/17/20 20:28 Dose: 0.5 mg Documented by: Sodium Chloride (Nacl 0.9% 1000 Ml) 1,000 mls @ 75 mls/hr IV DIRECT NICKO Azithromycin (Zithromax/Ns) 500 mg in 250 mls @ 250 mls/hr IV Q24H [facility] Last Admin: 12/19/20 08:52 Dose: 250 mls/hr Documented by: Ceftriaxone Sodium (Rocephin/Ns 2 Gm/100 Ml) 2 gm in 100 mls @ 200 mls/hr IV Q24HR [facility]; Protocol Last Admin: 12/19/20 10:12 Dose: 200 mls/hr Documented by: Metoclopramide HCl (Metoclopramide 10 Mg/2 Ml Inj) 5 mg IV Q6H PRN PRN Reason: Nausea And Vomiting Metolazone (Metolazone 5 Mg Tab) 5 mg PO DAILY@0600 [facility] Last Admin: 12/19/20 06:22 Dose: 5 mg Documented by: Ondansetron HCl (Ondansetron 4 Mg/2 Ml Inj) 4 mg IV Q8H PRN PRN Reason: Nausea And Vomiting Oxycodone/Acetaminophen (Oxycodone /Acetaminophen 5-325mg Tab) 1 tab PO Q6H PRN PRN Reason: Pain, Moderate (4-6) Promethazine HCl (Promethazine 25 Mg Rect Supp) 25 mg [place] Q6H PRN PRN Reason: N/V IF NPO AND NO IV ACCESS Sodium Chloride (Sodium Chloride 0.9% 10 Ml Flush Syringe) 10 ml IV BID [facility] Last Admin: 12/19/20 10:12 Dose: 10 ml Documented by: Sodium Chloride (Sodium Chloride 0.9% 10 Ml Flush Syringe) 10 ml IV PRN PRN PRN Reason: LINE FLUSH Last Admin: 12/18/20 08:58 Dose: 10 ml Documented by: Physical Examination - Physical Exam Narrative exam: Physical Exam: Constitutional: Alert, cooperative. No acute distress Head, Ears, Nose: Normocephalic, atraumatic. External ears, nose normal Eyes: Conjunctivae/corneas clear. No icterus. No ptosis. Neck: Supple, no meningeal signs Cardiovascular: S1, S2 normal. Respiratory: Good air entry, clear to auscultation bilaterally GI: Soft, non-tender; bowel sounds normal. No peritoneal signs Musculoskeletal: No pedal edema, no cyanosis. Skin: No rash or abscess Hem/Lymphatic: No palpable cervical or supraclavicular nodes. No lymphangitis Psych: Mood ok. Affect normal Neurological: Awake, alert, oriented. No gross abnormality - Constitutional Vitals: Vital Signs Temp Pulse Resp BP Pulse Ox 98.3 F 63 13 138/62 97 12/19/20 12:00 12/19/20 13:00 12/19/20 13:00 12/19/20 13:00 12/19/20 13:00 Temperature -Last 24 Hours Temperature 98.3 F Temperature 98.2 F Temperature 97.6 F Temperature 97.6 F Temperature 97.8 F Temperature 98.1 F Results - Labs CBC & Chem 7: 12/19/20 04:46 12/19/20 04:46 Labs: Abnormal lab results 12/17/20 12/18/20 12/18/20 Range/Units 04:15 16:01 16:57 RBC (3.65-5.03) M/mm3 Hgb 7.9 L (11.8-15.2) gm/dl Hct 23.1 L (35.5-45.6) % RDW (13.2-15.2) % Lymph # (Auto) (1.2-5.4) K/mm3 Seg Neutrophils % (40.0-70.0) % Chloride (98-107) mmol/L Carbon Dioxide (22-30) mmol/L BUN (9-20) mg/dL Creatinine (0.8-1.3) mg/dL Glucose (75-100) mg/dL POC Glucose 106 H (70-105) mg/dL Calcium (8.4-10.2) mg/dL Crossmatch See Detail 12/19/20 12/19/20 Range/Units 04:46 04:46 RBC 2.52 L (3.65-5.03) M/mm3 Hgb 7.3 L (11.8-15.2) gm/dl Hct 21.2 L (35.5-45.6) % RDW 17.8 H (13.2-15.2) % Lymph # (Auto) 0.7 L (1.2-5.4) K/mm3 Seg Neutrophils % 78.4 H (40.0-70.0) % Chloride 108.7 H (98-107) mmol/L Carbon Dioxide 19 L (22-30) mmol/L BUN 72 H (9-20) mg/dL Creatinine 4.5 H (0.8-1.3) mg/dL Glucose 101 H (75-100) mg/dL POC Glucose (70-105) mg/dL Calcium 8.1 L (8.4-10.2) mg/dL Crossmatch - Imaging and Cardiology CT scan - chest: report reviewed, image reviewed (Right upper lobe lesion / cavitary: Seems to be related to bronchiectasis) Assessment and Plan Cultures: COVID-19 PCR: Negative A/P: 55-year-old male with COPD, hypertension, diabetes mellitus type 2, CKD came into the emergency room due to shortness of breath of breath. It seems, he had ran out of his medications. Upon evaluation in the ER, he has been afebrile. Labs showed no leukocytosis, did have evidence of anemia with hemoglobin of 6.0, creatinine 4.0, [place] proBNP [place] [address]1960: #Right upper lobe lesion / cavitary: Seems to be related to bronchiectasis based on CT scan. No definitive cavitation seen. No fever, no WBC elevation, procal is normal as well. ?prior aspiration. Born in [place]. No history of international travel. No history of incarceration. No history of homelessness. 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 Denies substance abuse. #CKD stage IV: Nephrology following #Acute CHF exacerbation: NT proBNP was 50 5K on admission. Cardiology following. On diuretics. #Anemia Recs: -low suspicion for TB. Quantiferon already ordered, can follow up -obtain AFB x 3 with induced sputum -no abx needed, procal is low even in setting of his CKD Siobhan Osorio MD, FACP [facility] O: [phone] F: [phone]
[2020-12-20] MEDS: BUMETANIDE 1 MG TAB PO SCH ×2 (06:57→17:57)
[2020-12-20] MEDS: metOLazone 5 MG TAB PO SCH (06:58)
--- NOTE | 2020-12-20 09:12 | Progress Note ---
Assessment and Plan Assessment and plan: (1) Cavitary lesion of lung Current Visit: Yes Status: Acute Plan to address problem: R/o TB versus malignancy CT chest requested Quantiferon gld test and AFB x 3 (2) Hypertensive emergency Current Visit: Yes Status: Acute Plan to address problem: Medications adjusted IV Hydralazine prn q3h (3) Renal failure (ARF), acute on chronic Current Visit: Yes Status: Acute Qualifiers: Acute renal failure type: unspecified Chronic kidney disease stage: unspecified stage Qualified Code(s): N17.9 - Acute kidney failure, unspecified; N18.9 - Chronic kidney disease, unspecified Plan to address problem: Renal consult (4) CHF exacerbation Current Visit: Yes Status: Acute Qualifiers: Heart failure type: unspecified Qualified Code(s): I50.9 - Heart failure, unspecified Plan to address problem: On IV lasix q24h ECHO for EF (5) GERD (gastroesophageal reflux disease) Current Visit: Yes Status: Chronic Qualifiers: Esophagitis presence: without esophagitis Qualified Code(s): K21.9 - Gastro-esophageal reflux disease without esophagitis Plan to address problem: on protonix (6) HLD (hyperlipidemia) Current Visit: Yes Status: Chronic Qualifiers: Hyperlipidemia type: mixed hyperlipidemia Qualified Code(s): E78.2 - Mixed hyperlipidemia Plan to address problem: On Statins (7) DVT prophylaxis Current Visit: Yes Status: Acute Plan to address problem: on Heparin and GI prophylaxis 12/18/2020 -CT chest showed cavitary lesion, TB versus neoplasm; ID consulted -Patient is off oxygen and doing well -Blood pressure is still uncontrolled and I added clonidine to his medication regimen, and we will continue to follow -Patient's creatinine 4.3 and GFR is 17, unknown baseline and will put a consult for nephrology -Patient has elevated BNP and troponin level, cardiology consulted -Patient's hemoglobin is 6.7 this morning a unit of packed RBC was ordered. Will monitor posttransfusion H&H. 12/19/2020 --CT chest showed cavitary lesion, TB versus neoplasm; ID consulted and pending evaluation -Patient is off oxygen and doing well -Blood pressure is is controlled after clonidine started -Patient's creatinine 4.3 and GFR is 17, nephrology consulted and will follow recommendation -Patient has elevated BNP and troponin level, cardiology consulted -Posttransfusion hemoglobin is 7.3 2/22/21 -ID was consulted for CT findings but his suspicion is low for TB, nevertheless recommended to do AFB x3 -Nephrology is following -Patient has CHF cardiology is following, on Bumex -Blood pressure is controlled, continue current medication regimen -Morning labs are pending History Interval history: Patient was seen and evaluated this morning Patient was alert and oriented Patient was off oxygen Hospitalist Physical - Physical exam Narrative exam: Not in cardiopulmonary distress. The patient appeared well nourished and normally developed. Vital signs as documented. Head exam is unremarkable. No scleral icterus . Neck is without jugular venous distension, thyromegaly, or carotid bruits. Lungs are clear to auscultation. Cardiac exam reveals regular rate and Rhythm. Abdominal exam reveals normal bowel sounds, nontender, no organomegaly. Extremities are nonedematous and both femoral and pedal pulses are normal. 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 No focal weakness. - Constitutional Vitals: Temp Pulse Resp BP Pulse Ox 98.6 F 59 L 11 L 154/70 97 12/20/20 08:00 12/20/20 07:11 12/20/20 07:11 12/20/20 07:11 12/20/20 07:11 General appearance: Present: mild distress, well-nourished HEART Score - HEART Score Troponin: Troponin T 0.234 ng/mL (0.00-0.029) H* 12/17/20 Unknown Results - Labs CBC & Chem 7: 12/19/20 04:46 12/19/20 04:46 Labs: Laboratory Last Values WBC 5.4 K/mm3 (4.5-11.0) 12/19/20 04:46 RBC 2.52 M/mm3 (3.65-5.03) L 12/19/20 04:46 Hgb 7.3 gm/dl (11.8-15.2) L 12/19/20 04:46 Hct 21.2 % (35.5-45.6) L 12/19/20 04:46 MCV 84 fl (84-94) 12/19/20 04:46 MCH 29 pg (28-32) 12/19/20 04:46 MCHC 34 % (32-34) 12/19/20 04:46 RDW 17.8 % (13.2-15.2) H 12/19/20 04:46 Plt Count 153 K/mm3 (140-440) 12/19/20 04:46 Lymph % (Auto) 13.6 % (13.4-35.0) 12/19/20 04:46 [place] % (Auto) 7.1 % (0.0-7.3) 12/19/20 04:46 Eos % (Auto) 0.4 % (0.0-4.3) 12/19/20 04:46 Baso % (Auto) 0.5 % (0.0-1.8) 12/19/20 04:46 Lymph # (Auto) 0.7 K/mm3 (1.2-5.4) L 12/19/20 04:46 [place] # (Auto) 0.4 K/mm3 (0.0-0.8) 12/19/20 04:46 Eos # (Auto) 0.0 K/mm3 (0.0-0.4) 12/19/20 04:46 Baso # (Auto) 0.0 K/mm3 (0.0-0.1) 12/19/20 04:46 Seg Neutrophils % 78.4 % (40.0-70.0) H 12/19/20 04:46 Seg Neutrophils # 4.2 K/mm3 (1.8-7.7) 12/19/20 04:46 D-Dimer 541.77 ng/mlDDU (0-234) H 12/18/20 08:45 Sodium 138 mmol/L (137-145) 12/19/20 04:46 Potassium 4.3 mmol/L (3.6-5.0) 12/19/20 04:46 Chloride 108.7 mmol/L (98-107) H 12/19/20 04:46 Carbon Dioxide 19 mmol/L (22-30) L 12/19/20 04:46 Anion Gap 15 mmol/L 12/19/20 04:46 BUN 72 mg/dL (9-20) H 12/19/20 04:46 Creatinine 4.5 mg/dL (0.8-1.3) H 12/19/20 04:46 Estimated GFR 16 ml/min 12/19/20 04:46 BUN/Creatinine Ratio 16 % 12/19/20 04:46 Glucose 101 mg/dL (75-100) H 12/19/20 04:46 POC Glucose 106 mg/dL (70-105) H 12/18/20 16:57 Hemoglobin A1c 6.4 % (4-6) H 12/17/20 03:10 Calcium 8.1 mg/dL (8.4-10.2) L 12/19/20 04:46 Ferritin 259.5 ng/mL (30.0-300.0) 12/18/20 08:45 Total Bilirubin 0.30 mg/dL (0.1-1.2) 12/18/20 04:57 AST 16 units/L (5-40) 12/18/20 04:57 ALT 32 units/L (7-56) 12/18/20 04:57 Alkaline Phosphatase 98 units/L (35-129) 12/18/20 04:57 Lactate Dehydrogenase 305 units/L (91-180) H 12/18/20 08:45 Total Creatine Kinase 289 units/L (55-170) H 12/18/20 00:47 CK-MB (CK-2) 7.5 ng/mL (0.0-4.0) H 12/18/20 00:47 CK-MB (CK-2) Rel Index 2.5 (0-4) 12/18/20 00:47 Troponin T 0.234 ng/mL (0.00-0.029) H* 12/17/20 Unknown C-Reactive Protein 0.20 mg/dL (0.00-1.30) 12/18/20 08:45 NT-Pro-B Natriuret Pep 00831 pg/mL (0-900) H 12/17/20 Unknown Total Protein 5.8 g/dL (6.3-8.2) L 12/18/20 04:57 Albumin 3.1 g/dL (3.9-5) L 12/18/20 04:57 Albumin/Globulin Ratio 1.1 % 12/18/20 04:57 Triglycerides 104 mg/dL (2-149) 12/17/20 Unknown Cholesterol 179 mg/dL (50-199) 12/17/20 Unknown LDL Cholesterol Direct 107 mg/dL (50-130) 12/17/20 Unknown HDL Cholesterol 75 mg/dL (40-59) H 12/17/20 Unknown Cholesterol/HDL Ratio 2.38 % 12/17/20 Unknown Procalcitonin 0.09 ng/mL (<0.15) 12/18/20 08:45 Coronavirus (PCR) Negative (Negative) 12/18/20 09:40 Blood Type B POSITIVE 12/17/20 04:15 Antibody Screen Negative 12/17/20 04:15 Crossmatch See Detail 12/17/20 04:15 Buenrostro/IV: Voiding Method Urinal Active Medications - Current Medications Current Medications: Generic Name Dose Route Start Last Admin Trade Name Freq PRN Reason Stop Dose Admin Acetaminophen 650 mg 12/17/20 15:26 Acetaminophen 325 Mg Tab PO Q4H PRN Pain MILD(1-3)/Fever >100.5/HENDRICKSON Amlodipine Besylate 10 mg 12/17/20 16:00 12/19/20 10:12 Amlodipine 10 Mg Tab PO 10 mg DAILY NICKO Administration Atorvastatin Calcium 40 mg 12/17/20 22:00 12/19/20 22:21 Atorvastatin 40 Mg Tab PO 40 mg QHS NICKO Administration Bumetanide 2 mg 12/17/20 18:00 12/20/20 06:57 Bumetanide 1 Mg Tab PO 2 mg 0600,1800 NICKO Administration Clonidine HCl 0.2 mg 12/18/20 10:00 12/19/20 22:20 Clonidine 0.2 Mg Tab PO 0.2 mg Q12HR NICKO Administration Diphenhydramine HCl 25 mg 12/17/20 15:25 Diphenhydramine 25 Mg Cap PO Q6HR PRN Allergy Symptoms Famotidine 10 mg 12/17/20 22:00 12/19/20 22:21 Famotidine 10 Mg Tab PO 10 mg BID NICKO Administration Heparin Sodium (Porcine) 5,000 unit 12/18/20 10:00 12/19/20 22:20 Heparin 5,000 Unit/1 Ml Vial SUB-Q 5,000 unit Q12HR NICKO Administration Hydralazine HCl 100 mg 12/17/20 20:00 12/19/20 20:42 Hydralazine 100 Mg Tab PO 100 mg TID NICKO Administration Hydralazine HCl 10 mg 12/18/20 07:48 Hydralazine 20 Mg/1 Ml Inj IV Q3H PRN Blood Pressure Hydromorphone HCl 0.5 mg 12/17/20 15:26 12/17/20 20:28 Hydromorphone 1 Mg/1 Ml Inj IV 0.5 mg Q3H PRN Administration Pain , Severe (7-10) Sodium Chloride 1,000 mls @ 75 mls/hr 12/17/20 15:30 Nacl 0.9% 1000 Ml IV DIRECT NICKO Metoclopramide HCl 5 mg 12/19/20 10:00 Metoclopramide 10 Mg/2 Ml Inj IV Q6H PRN Nausea And Vomiting Metolazone 5 mg 12/17/20 17:00 12/20/20 06:58 Metolazone 5 Mg Tab PO 5 mg DAILY@0600 NICKO Administration Ondansetron HCl 4 mg 12/17/20 15:26 Ondansetron 4 Mg/2 Ml Inj IV Q8H PRN Nausea And Vomiting Oxycodone/Acetaminophen 1 tab 12/17/20 15:26 Oxycodone /Acetaminophen 5-325mg Tab PO Q6H PRN Pain, Moderate (4-6) Promethazine HCl 25 mg 12/17/20 15:26 Promethazine 25 Mg Rect Supp UT Q6H PRN N/V IF NPO AND NO IV ACCESS Sodium Chloride 10 ml 12/17/20 22:00 12/19/20 22:21 Sodium Chloride 0.9% 10 Ml Flush Syringe IV 10 ml BID NICKO Administration Sodium Chloride 10 ml 12/17/20 15:26 12/18/20 08:58 Sodium Chloride 0.9% 10 Ml Flush Syringe IV 10 ml PRN PRN Administration LINE FLUSH
[2020-12-20] MEDS: hydrALAZINE 100 MG TAB PO SCH ×3 (09:51→22:08)
[2020-12-20] MEDS: HEPARIN 5,000 UNIT/1 ML VIAL SUB-Q SCH ×2 (09:51→22:08)
[2020-12-20] MEDS: amLODIPine 10 MG TAB PO SCH (09:51)
[2020-12-20] MEDS: FAMOTIDINE 10 MG TAB PO SCH ×2 (09:51→22:08)
[2020-12-20] MEDS: cloNIDine 0.2 MG TAB PO SCH (09:51)
--- NOTE | 2020-12-20 12:55 | Progress Note ---
Assessment and Plan - Patient Problems (1) Shortness of breath Current Visit: Yes Status: Acute Plan to address problem: Patient has underlying severe COPD pulmonary work-up of COPD and chronic shortness of breath is ongoing. (2) Abnormal EKG Current Visit: Yes Status: Acute Plan to address problem: Patient's chronic ST changes on ECG likely represent left ventricle hypertrophy, but it would be prudent to plan a predischarge Lexiscan thallium stress test for cardiac ischemia assessment. (3) Elevated troponin Current Visit: Yes Status: Acute Plan to address problem: Nonspecific troponin elevation is likely due to underlying severe chronic kidney disease. (4) Uncontrolled hypertension Current Visit: Yes Status: Acute Plan to address problem: We will add Procardia XL to patient's hypertension management. Subjective Date of service: 12/20/20 Principal diagnosis: Shortness of breath Interval history: 55-year-old man admitted with shortness of breath, currently feels comfortable, still in the CCU stepdown. No chest pain. No significant lower extremity edema. He has a history of longstanding COPD, and attributed his shortness of breath to COPD exacerbation, and the fact that he has been noncompliant with his medications. He also apparently has a long history of hypertension and on this presentation has maintained persistently elevated blood pressures. Cardiology was consulted for the finding of an elevated troponin of 0.2, unchanged on serial measurements. This is apparently in the setting of severe chronic renal failure with a creatinine on this presentation of 4.3. His ECG shows sinus rhythm, with subtle ST depressions in the lateral leads. It will be noted that these abnormal ST segment changes were present on a previous ECG done 6 months ago. Echocardiogram done today shows a moderate to severe concentric left ventricular hypertrophy, mild left ventricular systolic dysfunction with ejection fraction 45%, and a small, hemodynamically insignificant pericardial effusion. Objective Vital Signs Temp Pulse Pulse Resp BP Pulse Ox 12/20/20 12:31 59 L 14 151/72 96 12/20/20 12:21 63 17 142/68 98 12/20/20 12:11 59 L 11 L 142/68 98 12/20/20 12:00 58 L 61 13 142/68 96 12/20/20 11:51 59 L 12 169/81 97 12/20/20 11:41 61 12 169/81 97 12/20/20 11:30 59 L 11 L 147/69 97 12/20/20 11:21 59 L 11 L 162/74 97 12/20/20 11:11 65 12 162/74 98 12/20/20 11:00 60 14 169/81 99 12/20/20 10:51 61 11 L 162/74 98 12/20/20 10:41 63 16 162/74 99 12/20/20 10:30 65 18 162/74 98 12/20/20 10:21 61 16 161/77 99 12/20/20 10:11 63 14 161/77 98 12/20/20 10:01 71 15 161/77 98 12/20/20 09:51 69 11 L 146/71 98 12/20/20 09:41 62 13 146/71 97 12/20/20 09:30 61 11 L 146/71 98 12/20/20 09:21 62 11 L 162/73 98 12/20/20 09:11 64 13 162/73 96 12/20/20 09:00 66 18 162/73 97 12/20/20 08:51 64 15 165/110 98 12/20/20 08:41 73 17 165/110 99 12/20/20 08:30 76 17 165/110 97 12/20/20 08:21 58 L 11 L 161/78 96 12/20/20 08:11 60 12 161/78 98 12/20/20 08:00 98.6 F 60 70 10 L 156/80 96 12/20/20 07:51 66 9 L 161/78 98 12/20/20 07:40 62 11 L 161/78 98 12/20/20 07:31 59 L 11 L 161/78 97 12/20/20 07:21 58 L 11 L 154/70 99 12/20/20 07:11 59 L 11 L 154/70 97 12/20/20 07:01 67 15 154/70 98 12/20/20 06:51 58 L 11 L 160/79 99 12/20/20 06:41 58 L 10 L 160/79 97 12/20/20 06:30 58 L 13 160/79 98 12/20/20 06:21 59 L 14 147/69 96 12/20/20 06:11 61 12 147/69 96 12/20/20 06:00 59 L 12 147/69 97 12/20/20 05:51 66 14 144/66 98 02/22/21 05:41 59 L 12 144/66 97 12/20/20 05:30 63 16 144/66 99 12/20/20 05:21 60 11 L 146/69 97 12/20/20 05:11 59 L 11 L 146/69 98 12/20/20 05:00 60 13 146/69 98 12/20/20 04:51 59 L 11 L 146/70 99 12/20/20 04:41 60 12 146/70 98 12/20/20 04:30 60 12 146/70 98 12/20/20 04:21 60 11 L 138/65 98 12/20/20 04:11 63 12 138/65 99 12/20/20 04:00 97.8 F 66 61 20 138/65 99 12/20/20 03:51 58 L 11 L 146/68 98 12/20/20 03:41 59 L 11 L 146/68 96 12/20/20 03:30 59 L 12 146/68 98 12/20/20 03:21 59 L 13 148/71 98 12/20/20 03:11 58 L 11 L 148/71 98 12/20/20 03:00 61 11 L 148/71 97 12/20/20 02:51 60 10 L 144/66 97 12/20/20 02:41 58 L 11 L 144/66 98 12/20/20 02:30 63 14 144/66 99 12/20/20 02:21 58 L 10 L 143/69 98 12/20/20 02:11 58 L 11 L 143/69 98 12/20/20 02:00 58 L 11 L 143/69 97 12/20/20 01:51 58 L 11 L 143/70 98 12/20/20 01:41 58 L 11 L 143/70 98 12/20/20 01:30 59 L 11 L 143/70 98 12/20/20 01:21 60 12 139/70 98 12/20/20 01:11 59 L 11 L 139/70 97 12/20/20 01:00 61 13 139/70 97 12/20/20 00:51 59 L 11 L 143/70 97 12/20/20 00:41 60 11 L 143/70 98 12/20/20 00:30 59 L 11 L 143/70 98 12/20/20 00:21 62 11 L 146/71 98 12/20/20 00:11 59 L 11 L 146/71 98 12/20/20 00:00 97.8 F 62 61 12 146/71 99 12/19/20 23:51 65 13 141/68 99 12/19/20 23:41 60 11 L 141/68 94 12/19/20 23:30 60 11 L 141/68 93 12/19/20 23:21 64 13 151/71 99 12/19/20 23:11 64 12 151/71 99 12/19/20 23:05 62 11 L 151/71 99 12/19/20 23:00 63 12 151/71 99 12/19/20 22:51 62 11 L 151/70 98 12/19/20 22:41 62 11 L 151/70 98 12/19/20 22:30 61 12 151/70 99 12/19/20 22:21 66 14 157/77 98 12/19/20 22:11 68 10 L 150/68 98 12/19/20 22:00 61 12 150/68 96 12/19/20 21:51 69 17 157/77 98 12/19/20 21:41 64 12 157/77 98 12/19/20 21:30 62 12 157/77 98 12/19/20 21:21 61 9 L 154/70 98 12/19/20 21:11 60 12 154/70 98 12/19/20 21:00 58 L 10 L 154/70 98 12/19/20 20:53 99 12/19/20 20:51 60 12 157/71 99 12/19/20 20:41 71 12 157/71 99 12/19/20 20:31 61 15 157/71 99 12/19/20 20:21 61 14 155/82 99 12/19/20 20:11 62 19 155/82 99 12/19/20 20:01 63 15 155/82 98 12/19/20 20:00 97.5 F L 59 L 59 L 20 12/19/20 19:51 62 16 165/79 98 12/19/20 19:41 64 18 165/79 100 12/19/20 19:30 62 16 165/79 98 12/19/20 19:21 63 15 157/82 98 12/19/20 19:11 61 14 157/82 99 12/19/20 19:00 61 14 157/82 99 12/19/20 18:51 67 19 155/79 100 12/19/20 18:41 64 15 155/79 100 12/19/20 18:30 62 16 155/79 99 12/19/20 18:21 65 15 147/73 99 12/19/20 18:11 63 18 147/73 99 12/19/20 18:00 62 14 147/73 100 12/19/20 17:51 65 17 145/68 99 12/19/20 17:41 65 18 145/68 99 12/19/20 17:31 64 14 145/68 99 12/19/20 17:21 63 13 138/64 99 12/19/20 17:11 66 11 L 138/64 98 12/19/20 17:00 65 12 138/64 100 12/19/20 16:51 72 16 137/63 98 12/19/20 16:41 69 19 137/63 99 12/19/20 16:30 63 14 137/63 99 12/19/20 16:21 67 12 158/77 98 12/19/20 16:11 65 15 158/77 99 12/19/20 16:00 63 74 14 158/77 99 12/19/20 15:51 66 16 151/72 99 12/19/20 15:41 65 19 151/72 98 12/19/20 15:30 66 8 L 151/72 99 12/19/20 15:21 66 9 L 150/74 98 12/19/20 15:11 62 14 150/74 98 12/19/20 15:00 60 15 150/74 98 12/19/20 14:51 68 10 L 139/70 93 12/19/20 14:41 60 12 139/70 84 12/19/20 14:30 60 12 139/70 100 12/19/20 14:21 59 L 12 139/69 97 12/19/20 14:11 59 L 9 L 139/69 98 12/19/20 14:00 59 L 14 139/69 97 12/19/20 13:51 63 13 138/62 98 12/19/20 13:41 64 15 138/62 98 12/19/20 13:30 64 15 151/74 98 12/19/20 13:21 66 15 143/71 95 12/19/20 13:11 61 12 143/71 100 12/19/20 13:00 63 13 138/62 97 - Physical Examination General: No Apparent Distress HEENT: Positive: PERRL Neck: Positive: neck supple Cardiac: Positive: Reg Rate and Rhythm Lungs: Positive: Decreased Breath Sounds Neuro: Positive: Grossly Intact Abdomen: Positive: Soft Skin: Positive: Clear Extremities: Absent: edema
[2020-12-20 13:29] LABS: Basophils % (Auto) 0.5 % (0.0-1.8); Eosinophils % (Auto) 0.2 % (0.0-4.3); Hematocrit 24.4 % (35.5-45.6); Hemoglobin 8.5 gm/dl (11.8-15.2); Lymphocytes # (Auto) 0.7 K/mm3 (1.2-5.4); Lymphocytes % (Auto) 13.6 % (13.4-35.0); Mean Corpuscular HGB Conc 35 % (32-34); Mean Corpuscular Volume 84 fl (84-94); Monocytes # (Auto) 0.4 K/mm3 (0.0-0.8); Monocytes % (Auto) 8.7 % (0.0-7.3); Platelet Count 161 K/mm3 (140-440); Red Cell Distribution Width 17.8 % (13.2-15.2)
[2020-12-20 13:43] LABS: Calcium 8.1 mg/dL (8.4-10.2)
[2020-12-20] MEDS: NIFEdipine XL 60 MG TAB PO SCH (14:47)
--- NOTE | 2020-12-20 15:50 | Progress Note ---
Assessment and Plan Cultures: COVID-19 PCR: Negative A/P: 55-year-old male with COPD, hypertension, diabetes mellitus type 2, CKD came into the emergency room due to shortness of breath of breath. It seems, he had ran out of his medications. Upon evaluation in the ER, he has been afebrile. Labs showed no leukocytosis, did have evidence of anemia with hemoglobin of 6.0, creatinine 4.0, [place] proBNP [place] [address]96: #Right upper lobe lesion / cavitary: Seems to be related to bronchiectasis based on CT scan. No definitive cavitation seen. No fever, no WBC elevation, procal is normal as well. ?prior aspiration. Born in [place]. No history of international travel. No history of incarceration. No history of homelessness. 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 Denies substance abuse. #CKD stage IV: Nephrology following #Acute CHF exacerbation: NT proBNP was 50 5K on admission. Cardiology following. On diuretics. #Anemia Recs: -low suspicion for TB. Quantiferon already ordered, can follow up -obtain AFB x 3 with induced sputum -no abx needed, procal is low even in setting of his CKD GQueta Alberts MD [facility] O: [phone] F: [phone] Subjective Date of service: 12/20/20 Principal diagnosis: Shortness of breath Interval history: Afebrile, normal white count. Objective - Exam Narrative Exam: Physical Exam: Constitutional: Alert, cooperative. No acute distress Head, Ears, Nose: Normocephalic, atraumatic. External ears, nose normal Eyes: Conjunctivae/corneas clear. No icterus. No ptosis. Neck: Supple, no meningeal signs Cardiovascular: S1, S2 normal. Respiratory: Good air entry, clear to auscultation bilaterally GI: Soft, non-tender; bowel sounds normal. No peritoneal signs Musculoskeletal: No pedal edema, no cyanosis. Skin: No rash or abscess Hem/Lymphatic: No palpable cervical or supraclavicular nodes. No lymphangitis Psych: Mood ok. Affect normal Neurological: Awake, alert, oriented. No gross abnormality - Constitutional Vitals: Vital Signs Temp Pulse Resp BP Pulse Ox 98.7 F 59 L 13 150/72 97 12/20/20 12:00 12/20/20 14:00 12/20/20 14:00 12/20/20 14:00 12/20/20 14:00 Temperature -Last 24 Hours Temperature 98.7 F Temperature 98.6 F Temperature 97.8 F Temperature 97.8 F Temperature 97.5 F - Labs CBC & Chem 7: 12/20/20 13:05 12/20/20 13:05 Labs: Abnormal lab results 12/20/20 12/20/20 Range/Units 13:05 13:05 RBC 2.90 L (3.65-5.03) M/mm3 Hgb 8.5 L (11.8-15.2) gm/dl Hct 24.4 L (35.5-45.6) % MCHC 35 H (32-34) % RDW 17.8 H (13.2-15.2) % [place] % (Auto) 8.7 H (0.0-7.3) % Lymph # (Auto) 0.7 L (1.2-5.4) K/mm3 Seg Neutrophils % 77.0 H (40.0-70.0) % BUN 75 H (9-20) mg/dL Creatinine 4.4 H (0.8-1.3) mg/dL Glucose 146 H (75-100) mg/dL Calcium 8.1 L (8.4-10.2) mg/dL
--- NOTE | 2020-12-20 17:28 | Progress Note ---
Assessment and Plan - Patient Problems (1) Acute on chronic heart failure with preserved ejection fraction (HFpEF) Current Visit: Yes Status: Acute Plan to address problem: cont diuresis with bumex 2mg po bid, cont Na/fluid restriction to 1.5L/day. str ict I/Os, daily weight. follow cardiology recommendations (2) Hypertensive chronic kidney disease with stage 1 through stage 4 chronic kidney disease, or unspecified chronic kidney disease Current Visit: Yes Status: Acute Plan to address problem: monitor BP on current meds (3) Chronic kidney disease, stage 4 (severe) Current Visit: Yes Status: Acute Plan to address problem: progressive CKD stage 4, d/t presumed hypertensive nephrosclerosis.pt without acute uremic symptoms, electrolyte imbalance, no indication for renal replacement therapy at present. cont sodium bicarb 650mg bid for treatment of met acidosis. avoid further nephrotoxins, NSAIDs, IV contrast. (4) Anemia in chronic illness Current Visit: Yes Status: Acute Plan to address problem: s/p 1 PRBC transfusion. start EPO [id number] q week, hematology follow up as outpatient (5) Metabolic acidosis Current Visit: Yes Status: Acute Plan to address problem: cont sodium bicarb 650mg po bid. Subjective Date of service: 12/20/20 Principal diagnosis: Shortness of breath Interval history: Pt transferred to isolation room to rule out TB. no acute complaints Objective - Vital Signs Vital signs: Vital Signs - 12hr 12/20/20 12/20/20 12/20/20 05:30 05:41 05:51 Temperature Pulse Rate 63 59 L 66 Pulse Rate [ From Monitor] Respiratory 16 12 14 Rate Blood Pressure 144/66 144/66 144/66 O2 Sat by Pulse 99 97 98 Oximetry 12/20/20 12/20/20 12/20/20 06:00 06:11 06:21 Temperature Pulse Rate 59 L 61 59 L Pulse Rate [ From Monitor] Respiratory 12 12 14 Rate Blood Pressure 147/69 147/69 147/69 O2 Sat by Pulse 97 96 96 Oximetry 12/20/20 12/20/20 12/20/20 06:30 06:41 06:51 Temperature Pulse Rate 58 L 58 L 58 L Pulse Rate [ From Monitor] Respiratory 13 10 L 11 L Rate Blood Pressure 160/79 160/79 160/79 O2 Sat by Pulse 98 97 99 Oximetry 12/20/20 12/20/20 12/20/20 07:01 07:11 07:21 Temperature Pulse Rate 67 59 L 58 L Pulse Rate [ From Monitor] Respiratory 15 11 L 11 L Rate Blood Pressure 154/70 154/70 154/70 O2 Sat by Pulse 98 97 99 Oximetry 12/20/20 12/20/20 12/20/20 07:31 07:40 07:51 Temperature Pulse Rate 59 L 62 66 Pulse Rate [ From Monitor] Respiratory 11 L 11 L 9 L Rate Blood Pressure 161/78 161/78 161/78 O2 Sat by Pulse 97 98 98 Oximetry 12/20/20 12/20/20 12/20/20 08:00 08:11 08:21 Temperature 98.6 F Pulse Rate 60 60 58 L Pulse Rate [ 70 From Monitor] Respiratory 10 L 12 11 L Rate Blood Pressure 156/80 161/78 161/78 O2 Sat by Pulse 96 98 96 Oximetry 12/20/20 12/20/20 12/20/20 08:30 08:41 08:51 Temperature Pulse Rate 76 73 64 Pulse Rate [ From Monitor] Respiratory 17 17 15 Rate Blood Pressure 165/110 165/110 165/110 O2 Sat by Pulse 97 99 98 Oximetry 12/20/20 12/20/20 12/20/20 09:00 09:11 09:21 Temperature Pulse Rate 66 64 62 Pulse Rate [ From Monitor] Respiratory 18 13 11 L Rate Blood Pressure 162/73 162/73 162/73 O2 Sat by Pulse 97 96 98 Oximetry 12/20/20 12/20/20 12/20/20 09:30 09:41 09:51 Temperature Pulse Rate 61 62 69 Pulse Rate [ From Monitor] Respiratory 11 L 13 11 L Rate Blood Pressure 146/71 146/71 146/71 O2 Sat by Pulse 98 97 98 Oximetry 12/20/20 12/20/20 12/20/20 10:01 10:11 10:21 Temperature Pulse Rate 71 63 61 Pulse Rate [ From Monitor] Respiratory 15 14 16 Rate Blood Pressure 161/77 161/77 161/77 O2 Sat by Pulse 98 98 99 Oximetry 12/20/20 12/20/20 12/20/20 10:30 10:41 10:51 Temperature Pulse Rate 65 63 61 Pulse Rate [ From Monitor] Respiratory 18 16 11 L Rate Blood Pressure 162/74 162/74 162/74 O2 Sat by Pulse 98 99 98 Oximetry 12/20/20 12/20/20 12/20/20 11:00 11:11 11:21 Temperature Pulse Rate 60 65 59 L Pulse Rate [ From Monitor] Respiratory 14 12 11 L Rate Blood Pressure 169/81 162/74 162/74 O2 Sat by Pulse 99 98 97 Oximetry 12/20/20 12/20/20 12/20/20 11:30 11:41 11:51 Temperature Pulse Rate 59 L 61 59 L Pulse Rate [ From Monitor] Respiratory 11 L 12 12 Rate Blood Pressure 147/69 169/81 169/81 O2 Sat by Pulse 97 97 97 Oximetry 12/20/20 12/20/20 12/20/20 12:00 12:11 12:21 Temperature 98.7 F Pulse Rate 58 L 59 L 63 Pulse Rate [ 61 From Monitor] Respiratory 13 11 L 17 Rate Blood Pressure 142/68 142/68 142/68 O2 Sat by Pulse 96 98 98 Oximetry 12/20/20 12/20/20 12/20/20 12:31 12:41 12:51 Temperature Pulse Rate 59 L 68 71 Pulse Rate [ From Monitor] Respiratory 14 14 15 Rate Blood Pressure 151/72 151/72 151/72 O2 Sat by Pulse 96 96 98 Oximetry 12/20/20 12/20/20 12/20/20 13:00 13:11 13:21 Temperature Pulse Rate 61 64 65 Pulse Rate [ From Monitor] Respiratory 15 15 15 Rate Blood Pressure 150/69 150/69 150/69 O2 Sat by Pulse 96 98 100 Oximetry 12/20/20 12/20/20 12/20/20 13:30 13:41 13:51 Temperature Pulse Rate 63 60 59 L Pulse Rate [ From Monitor] Respiratory 10 L 11 L 10 L Rate Blood Pressure 150/71 150/71 150/71 O2 Sat by Pulse 98 98 98 Oximetry 12/20/20 12/20/20 12/20/20 14:00 14:11 14:21 Temperature Pulse Rate 59 L 58 L 62 Pulse Rate [ From Monitor] Respiratory 13 12 11 L Rate Blood Pressure 150/72 150/72 150/72 O2 Sat by Pulse 97 99 98 Oximetry 12/20/20 12/20/20 12/20/20 14:30 14:41 14:51 Temperature Pulse Rate 59 L 59 L 67 Pulse Rate [ From Monitor] Respiratory 14 11 L 12 Rate Blood Pressure 130/65 130/65 130/65 O2 Sat by Pulse 98 98 99 Oximetry - General Appearance General appearance: well-developed, well-nourished, appears stated age EENT: ATNC, PERRL, mucous membranes moist Neck: no JVD Respiratory: Present: Clear to Ascultation Cardiology: regular, S1S2 Gastrointestinal: normoactive bowel sounds Integumentary: no rash Neurologic: no focal deficit, alert and oriented x3, strength 5/5, CN 3-12 intact Psychiatric: mood/affect appropriate, cooperative - Lab 12/20/20 13:05 12/20/20 13:05 Most recent lab results Calcium 8.1 mg/dL (8.4-10.2) L 12/20/20 13:05 Medications & Allergies - Medications Allergies/Adverse Reactions: Allergies lisinopril Allergy (Verified 09/04/20 08:36) Angioedema Home Medications: Home Medications Medication Instructions Recorded Confirmed Last Taken Type AtorvaSTATin [Lipitor] 40 mg PO DAILY #30 06/02/20 Unknown Rx Bumetanide 2 mg PO BID #60 06/02/20 Unknown Rx amLODIPine 10 mg PO DAILY #30 06/02/20 Unknown Rx hydrALAZINE [Apresoline TAB] 100 mg PO TID #90 tab 06/02/20 Unknown Rx metOLazone [Zaroxolyn] 5 mg PO QDAY #30 06/02/20 Unknown Rx Famotidine [Pepcid] 20 mg PO BID #10 tablet 09/04/20 Unknown Rx diphenhydrAMINE [Benadryl CAP] 25 mg PO Q6HR PRN #30 capsule 09/04/20 Unknown Rx methylPREDNISolone [Medrol 4MG 4 mg PO DAILY #1 tab.ds.pk 09/04/20 Unknown Rx DOSEPAK (21 tabs)] Active Medications: Generic Name Dose Route Start Last Admin Trade Name Freq PRN Reason Stop Dose Admin Acetaminophen 650 mg 12/17/20 15:26 Acetaminophen 325 Mg Tab PO Q4H PRN Pain MILD(1-3)/Fever >100.5/HENDRICKSON Atorvastatin Calcium 40 mg 12/17/20 22:00 12/19/20 22:21 Atorvastatin 40 Mg Tab PO 40 mg QHS NICKO Administration Bumetanide 2 mg 12/17/20 18:00 12/20/20 06:57 Bumetanide 1 Mg Tab PO 2 mg 0600,1800 NICKO Administration Diphenhydramine HCl 25 mg 12/17/20 15:25 Diphenhydramine 25 Mg Cap PO Q6HR PRN Allergy Symptoms Doxazosin Mesylate 2 mg 12/20/20 18:00 Doxazosin 1 Mg Tab PO QPM [facility] Famotidine 10 mg 12/17/20 22:00 12/20/20 09:51 Famotidine 10 Mg Tab PO 10 mg BID NICKO Administration Heparin Sodium (Porcine) 5,000 unit 12/18/20 10:00 12/20/20 09:51 Heparin 5,000 Unit/1 Ml Vial SUB-Q 5,000 unit Q12HR [facility] Administration Hydralazine HCl 100 mg 12/17/20 20:00 12/20/20 14:47 Hydralazine 100 Mg Tab PO 100 mg TID [facility] Administration Hydralazine HCl 10 mg 12/18/20 07:48 Hydralazine 20 Mg/1 Ml Inj IV Q3H PRN Blood Pressure Hydromorphone HCl 0.5 mg 12/17/20 15:26 12/17/20 20:28 Hydromorphone 1 Mg/1 Ml Inj IV 0.5 mg Q3H PRN Administration Pain , Severe (7-10) Sodium Chloride 1,000 mls @ 75 mls/hr 12/17/20 15:30 Nacl 0.9% 1000 Ml IV DIRECT [facility] Metoclopramide HCl 5 mg 12/19/20 10:00 Metoclopramide 10 Mg/2 Ml Inj IV Q6H PRN Nausea And Vomiting Metolazone 5 mg 12/17/20 17:00 12/20/20 06:58 Metolazone 5 Mg Tab PO 5 mg DAILY@0600 [facility] Administration Nifedipine 60 mg 12/20/20 14:00 12/20/20 14:47 Nifedipine Xl 60 Mg Tab PO 60 mg QDAY [facility] Administration Ondansetron HCl 4 mg 12/17/20 15:26 Ondansetron 4 Mg/2 Ml Inj IV Q8H PRN Nausea And Vomiting Oxycodone/Acetaminophen 1 tab 12/17/20 15:26 Oxycodone /Acetaminophen 5-325mg Tab PO Q6H PRN Pain, Moderate (4-6) Promethazine HCl 25 mg 12/17/20 15:26 Promethazine 25 Mg Rect Supp HI Q6H PRN N/V IF NPO AND NO IV ACCESS Sodium Chloride 10 ml 12/17/20 22:00 12/20/20 09:52 Sodium Chloride 0.9% 10 Ml Flush Syringe IV 10 ml BID NICKO Administration Sodium Chloride 10 ml 12/17/20 15:26 12/18/20 08:58 Sodium Chloride 0.9% 10 Ml Flush Syringe IV 10 ml PRN PRN Administration LINE FLUSH
[2020-12-20] MEDS: DOXAZOSIN 1 MG TAB PO SCH (17:56)
[2020-12-21] MEDS: BUMETANIDE 1 MG TAB PO SCH ×2 (06:42→18:06)
[2020-12-21] MEDS: metOLazone 5 MG TAB PO SCH (06:42)
[2020-12-21] MEDS: hydrALAZINE 100 MG TAB PO SCH ×3 (09:06→21:30)
[2020-12-21] MEDS: FAMOTIDINE 10 MG TAB PO SCH ×2 (09:06→21:31)
[2020-12-21] MEDS: NIFEdipine XL 60 MG TAB PO SCH (09:06)
[2020-12-21] MEDS: HEPARIN 5,000 UNIT/1 ML VIAL SUB-Q SCH ×2 (09:06→21:32)
--- NOTE | 2020-12-21 09:18 | Progress Note ---
Assessment and Plan Assessment and plan: (1) Cavitary lesion of lung Current Visit: Yes Status: Acute Plan to address problem: R/o TB versus malignancy CT chest requested Quantiferon gld test and AFB x 3 (2) Hypertensive emergency Current Visit: Yes Status: Acute Plan to address problem: Medications adjusted IV Hydralazine prn q3h (3) Renal failure (ARF), acute on chronic Current Visit: Yes Status: Acute Qualifiers: Acute renal failure type: unspecified Chronic kidney disease stage: unspecified stage Qualified Code(s): N17.9 - Acute kidney failure, unspecified; N18.9 - Chronic kidney disease, unspecified Plan to address problem: Renal consult (4) CHF exacerbation Current Visit: Yes Status: Acute Qualifiers: Heart failure type: unspecified Qualified Code(s): I50.9 - Heart failure, unspecified Plan to address problem: On IV lasix q24h ECHO for EF (5) GERD (gastroesophageal reflux disease) Current Visit: Yes Status: Chronic Qualifiers: Esophagitis presence: without esophagitis Qualified Code(s): K21.9 - Gastro-esophageal reflux disease without esophagitis Plan to address problem: on protonix (6) HLD (hyperlipidemia) Current Visit: Yes Status: Chronic Qualifiers: Hyperlipidemia type: mixed hyperlipidemia Qualified Code(s): E78.2 - Mixed hyperlipidemia Plan to address problem: On Statins (7) DVT prophylaxis Current Visit: Yes Status: Acute Plan to address problem: on Heparin and GI prophylaxis 12/18/2020 -CT chest showed cavitary lesion, TB versus neoplasm; ID consulted -Patient is off oxygen and doing well -Blood pressure is still uncontrolled and I added clonidine to his medication regimen, and we will continue to follow -Patient's creatinine 4.3 and GFR is 17, unknown baseline and will put a consult for nephrology -Patient has elevated BNP and troponin level, cardiology consulted -Patient's hemoglobin is 6.7 this morning a unit of packed RBC was ordered. Will monitor posttransfusion H&H. 12/19/2020 --CT chest showed cavitary lesion, TB versus neoplasm; ID consulted and pending evaluation -Patient is off oxygen and doing well -Blood pressure is is controlled after clonidine started -Patient's creatinine 4.3 and GFR is 17, nephrology consulted and will follow recommendation -Patient has elevated BNP and troponin level, cardiology consulted -Posttransfusion hemoglobin is 7.3 2/22/21 -ID was consulted for CT findings but his suspicion is low for TB, nevertheless recommended to do AFB x3 -Nephrology is following -Patient has CHF cardiology is following, on Bumex -Blood pressure is controlled, continue current medication regimen -Morning labs are pending 12/21/2020 -Patient is doing well, ID ordered sputum for AFB History Interval history: Patient was seen and evaluated this morning Patient was alert and oriented Patient was off oxygen Hospitalist Physical - Physical exam Narrative exam: Not in cardiopulmonary distress. The patient appeared well nourished and normally developed. Vital signs as documented. Head exam is unremarkable. No scleral icterus . Neck is without jugular venous distension, thyromegaly, or carotid bruits. Lungs are clear to auscultation. Cardiac exam reveals regular rate and Rhythm. Abdominal exam reveals normal bowel sounds, nontender, no organomegaly. Extremities are nonedematous and both femoral and pedal pulses are normal. [employer]: Alert and oriented 3. No focal weakness. - Constitutional Vitals: Temp Pulse Resp BP Pulse Ox 98.1 F 72 18 129/65 97 12/21/20 08:48 12/21/20 08:48 12/21/20 08:48 12/21/20 08:48 12/21/20 08:48 General appearance: Present: mild distress, well-nourished HEART Score - HEART Score Troponin: Troponin T 0.234 ng/mL (0.00-0.029) H* 12/17/20 Unknown Results - Labs CBC & Chem 7: 12/20/20 13:05 12/20/20 13:05 Labs: Laboratory Last Values WBC 4.9 K/mm3 (4.5-11.0) 12/20/20 13:05 RBC 2.90 M/mm3 (3.65-5.03) L 12/20/20 13:05 Hgb 8.5 gm/dl (11.8-15.2) L 12/20/20 13:05 Hct 24.4 % (35.5-45.6) L 12/20/20 13:05 MCV 84 fl (84-94) 12/20/20 13:05 MCH 29 pg (28-32) 12/20/20 13:05 MCHC 35 % (32-34) H 12/20/20 13:05 RDW 17.8 % (13.2-15.2) H 12/20/20 13:05 Plt Count 161 K/mm3 (140-440) 12/20/20 13:05 Lymph % (Auto) 13.6 % (13.4-35.0) 12/20/20 13:05 Wilcox % (Auto) 8.7 % (0.0-7.3) H 12/20/20 13:05 Eos % (Auto) 0.2 % (0.0-4.3) 12/20/20 13:05 Baso % (Auto) 0.5 % (0.0-1.8) 12/20/20 13:05 Lymph # (Auto) 0.7 K/mm3 (1.2-5.4) L 12/20/20 13:05 Wilcox # (Auto) 0.4 K/mm3 (0.0-0.8) 12/20/20 13:05 Eos # (Auto) 0.0 K/mm3 (0.0-0.4) 12/20/20 13:05 Baso # (Auto) 0.0 K/mm3 (0.0-0.1) 12/20/20 13:05 Seg Neutrophils % 77.0 % (40.0-70.0) H 12/20/20 13:05 Seg Neutrophils # 3.8 K/mm3 (1.8-7.7) 12/20/20 13:05 D-Dimer 541.77 ng/mlDDU (0-234) H 12/18/20 08:45 Sodium 137 mmol/L (137-145) 12/20/20 13:05 Potassium 4.1 mmol/L (3.6-5.0) 12/20/20 13:05 Chloride 105.0 mmol/L (98-107) 12/20/20 13:05 Carbon Dioxide 22 mmol/L (22-30) 12/20/20 13:05 Anion Gap 14 mmol/L 12/20/20 13:05 BUN 75 mg/dL (9-20) H 12/20/20 13:05 Creatinine 4.4 mg/dL (0.8-1.3) H 12/20/20 13:05 Estimated GFR 17 ml/min 12/20/20 13:05 BUN/Creatinine Ratio 17 % 12/20/20 13:05 Glucose 146 mg/dL (75-100) H 12/20/20 13:05 POC Glucose 106 mg/dL (70-105) H 12/18/20 16:57 Hemoglobin A1c 6.4 % (4-6) H 12/17/20 03:10 Calcium 8.1 mg/dL (8.4-10.2) L 12/20/20 13:05 Ferritin 259.5 ng/mL (30.0-300.0) 12/18/20 08:45 Total Bilirubin 0.30 mg/dL (0.1-1.2) 12/18/20 04:57 AST 16 units/L (5-40) 12/18/20 04:57 ALT 32 units/L (7-56) 12/18/20 04:57 Alkaline Phosphatase 98 units/L (35-129) 12/18/20 04:57 Lactate Dehydrogenase 305 units/L (91-180) H 12/18/20 08:45 Total Creatine Kinase 289 units/L (55-170) H 12/18/20 00:47 CK-MB (CK-2) 7.5 ng/mL (0.0-4.0) H 12/18/20 00:47 CK-MB (CK-2) Rel Index 2.5 (0-4) 12/18/20 00:47 Troponin T 0.234 ng/mL (0.00-0.029) H* 12/17/20 Unknown C-Reactive Protein 0.20 mg/dL (0.00-1.30) 12/18/20 08:45 NT-Pro-B Natriuret Pep 62301 pg/mL (0-900) H 12/17/20 Unknown Total Protein 5.8 g/dL (6.3-8.2) L 12/18/20 04:57 Albumin 3.1 g/dL (3.9-5) L 12/18/20 04:57 Albumin/Globulin Ratio 1.1 % 12/18/20 04:57 Triglycerides 104 mg/dL (2-149) 12/17/20 Unknown Cholesterol 179 mg/dL (50-199) 12/17/20 Unknown LDL Cholesterol Direct 107 mg/dL (50-130) 12/17/20 Unknown HDL Cholesterol 75 mg/dL (40-59) H 12/17/20 Unknown Cholesterol/HDL Ratio 2.38 % 12/17/20 Unknown Procalcitonin 0.09 ng/mL (<0.15) 12/18/20 08:45 Coronavirus (PCR) Negative (Negative) 12/18/20 09:40 Blood Type B POSITIVE 12/17/20 04:15 Antibody Screen Negative 12/17/20 04:15 Crossmatch See Detail 12/17/20 04:15 - Diagnostic Impressions Diagnostic Impressions: Echocardiogram 12/18/20 07:47 Transthoracic Echocardiogram Indication: Dyspnea BP: 154/70 HR: 62 Conclusions *The left ventricular chamber size is mildly dilated. *Moderate to severe concentric left ventricular hypertrophy is observed. *Global left ventricular systolic function is mild to moderately decreased. *The estimated ejection fraction is 40-45%. *The left atrium is mildly dilated. *There is mild mitral regurgitation. *There is mild aortic regurgitation. *There is mild tricuspid regurgitation. *There is evidence of mild pulmonary hypertension. *The right ventricular systolic pressure is calculated at 34 mmHg. *There is a minimal-small pericardial effusion. No tamponade. Findings Left Ventricle: The left ventricular chamber size is mildly dilated. Moderate to severe concentric left ventricular hypertrophy is observed. Global left ventricular systolic function is mild to moderately decreased. The estimated ejection fraction is 40-45%. Left Atrium: The left atrium is mildly dilated. Right Ventricle: The right ventricle is mildly dilated. The right ventricular global systolic function is mildly reduced. Right Atrium: The right atrium is mildly dilated. Aortic Valve: The aortic valve is trileaflet. There is mild aortic regurgitation. There is no evidence of aortic stenosis. Mitral Valve: The mitral valve leaflets are mildly thickened. There is mild mitral regurgitation. There is no evidence of mitral stenosis. Tricuspid Valve: There is mild tricuspid regurgitation. The right ventricular systolic pressure is calculated at 34 mmHg. There is evidence of mild pulmonary hypertension. Pulmonic Valve: There is mild pulmonic regurgitation. Pericardium: There is a small pericardial effusion. A left pleural effusion is present. Aorta: There is no dilatation of the ascending aorta. There is no dilatation of the aortic root. Venous: The inferior vena cava appears normal in size. Measurements Chambers 2D Name Value Normal Range IVSd (2D) 1.31 cm (0.6 - 1.1) LVPWd (2D) 1.42 cm (0.6 - 1.1) LVIDd (2D) 6.16 cm (3.7 - 5.6) LVIDs (2D) 4.17 cm (2 - 3.8) LV FS (2D) 32.33 % - EF Teichholz (2D) 59.62 % - Ao root diameter (2D) 3.07 cm (2 - 3.7) Volumes/Mass Name Value Normal Range LA ESV SP 4CH (A/L) 77.67 ml - LA ESV SP 2CH (A/L) 113.51 ml - LA ESV BP (A/L) 103.52 ml - LA ESV BP (A/L) index 52.28 ml/m2 - LA ESV SP 4CH (MOD) 65.73 ml - LA ESV SP 2CH (MOD) 100.9 ml - LA ESV BP (MOD) 89.75 ml - LA ESV BP (MOD) index 45.33 ml/m2 - Diastolic/Systolic Function Name Value Normal Range MV E-wave Vmax 0.88 m/sec - MV deceleration time 420.75 msec - MV A-wave Vmax 0.59 m/sec - MV E:A ratio 1.48 ratio - Aortic Valve Name Value Normal Range AV Vmax 1.23 m/sec - AV VTI 29.09 cm - AV peak gradient 6.07 mmHg - AV mean gradient 3.5 mmHg - LVOT diameter 2.41 cm - LVOT Vmax 1.07 m/sec - LVOT VTI 22.38 cm - LVOT peak gradient 4.55 mmHg - LVOT mean gradient 2.25 mmHg - SV LVOT 101.73 ml - TABBY (continuity Vmax) 3.93 cm2 - TABBY (continuity VTI) 3.5 cm2 - AR PHT 864.51 msec - AR peak gradient 24.72 mmHg - Mitral Valve Name Value Normal Range MR Vmax 5.01 m/sec - Tricuspid Valve Name Value Normal Range TR Vmax 2.78 m/sec - TR peak gradient 31 mmHg - RAP 3 mmHg - RVSP 34 mmHg - IVC diameter 2.29 cm (1.2 - 2.3) Pulmonic Valve/Qp:Qs Name Value Normal Range PV Vmax 0.98 m/sec - PV peak gradient 3.88 mmHg - MI end-diastolic Vmax 1.31 m/sec - PV acceleration time 125.59 msec - Buenrostro/IV: Voiding Method Urinal Active Medications - Current Medications Current Medications: Generic Name Dose Route Start Last Admin Trade Name Freq PRN Reason Stop Dose Admin Acetaminophen 650 mg 12/17/20 15:26 Acetaminophen 325 Mg Tab PO Q4H PRN Pain MILD(1-3)/Fever >100.5/HENDRICKSON Atorvastatin Calcium 40 mg 12/17/20 22:00 12/20/20 22:08 Atorvastatin 40 Mg Tab PO 40 mg QHS NICKO Administration Bumetanide 2 mg 12/17/20 18:00 12/21/20 06:42 Bumetanide 1 Mg Tab PO 2 mg 0600,1800 NICKO Administration Diphenhydramine HCl 25 mg 12/17/20 15:25 Diphenhydramine 25 Mg Cap PO Q6HR PRN Allergy Symptoms Doxazosin Mesylate 2 mg 12/20/20 18:00 12/20/20 17:56 Doxazosin 1 Mg Tab PO 2 mg QPM NICKO Administration Famotidine 10 mg 12/17/20 22:00 12/21/20 09:06 Famotidine 10 Mg Tab PO 10 mg BID NICKO Administration Heparin Sodium (Porcine) 5,000 unit 12/18/20 10:00 12/21/20 09:06 Heparin 5,000 Unit/1 Ml Vial SUB-Q 5,000 unit Q12HR NICKO Administration Hydralazine HCl 100 mg 12/17/20 20:00 12/21/20 09:06 Hydralazine 100 Mg Tab PO 100 mg TID NICKO Administration Hydralazine HCl 10 mg 12/18/20 07:48 Hydralazine 20 Mg/1 Ml Inj IV Q3H PRN Blood Pressure Hydromorphone HCl 0.5 mg 12/17/20 15:26 12/17/20 20:28 Hydromorphone 1 Mg/1 Ml Inj IV 0.5 mg Q3H PRN Administration Pain , Severe (7-10) Sodium Chloride 1,000 mls @ 75 mls/hr 12/17/20 15:30 Nacl 0.9% 1000 Ml IV DIRECT NICKO Metoclopramide HCl 5 mg 12/19/20 10:00 Metoclopramide 10 Mg/2 Ml Inj IV Q6H PRN Nausea And Vomiting Metolazone 5 mg 12/17/20 17:00 12/21/20 06:42 Metolazone 5 Mg Tab PO 5 mg DAILY@0600 NICKO Administration Nifedipine 60 mg 12/20/20 14:00 12/21/20 09:06 Nifedipine Xl 60 Mg Tab PO 60 mg QDAY NICKO Administration Ondansetron HCl 4 mg 12/17/20 15:26 Ondansetron 4 Mg/2 Ml Inj IV Q8H PRN Nausea And Vomiting Oxycodone/Acetaminophen 1 tab 12/17/20 15:26 Oxycodone /Acetaminophen 5-325mg Tab PO Q6H PRN Pain, Moderate (4-6) Promethazine HCl 25 mg 12/17/20 15:26 Promethazine 25 Mg Rect Supp MI Q6H PRN N/V IF NPO AND NO IV ACCESS Sodium Chloride 10 ml 12/17/20 22:00 12/21/20 09:06 Sodium Chloride 0.9% 10 Ml Flush Syringe IV 10 ml BID NICKO Administration Sodium Chloride 10 ml 12/17/20 15:26 12/18/20 08:58 Sodium Chloride 0.9% 10 Ml Flush Syringe IV 10 ml PRN PRN Administration LINE FLUSH
--- NOTE | 2020-12-21 10:56 | Progress Note ---
Assessment and Plan - Patient Problems (1) Acute on chronic heart failure with preserved ejection fraction (HFpEF) Current Visit: Yes Status: Acute Plan to address problem: cont diuresis with bumex 2mg po bid, cont Na/fluid restriction to 1.5L/day. str ict I/Os, daily weight. (2) Hypertensive chronic kidney disease with stage 1 through stage 4 chronic kidney disease, or unspecified chronic kidney disease Current Visit: Yes Status: Acute Plan to address problem: monitor BP on current meds (3) Chronic kidney disease, stage 4 (severe) Current Visit: Yes Status: Acute Plan to address problem: progressive CKD stage 4, d/t presumed hypertensive nephrosclerosis. pt without acute uremic symptoms, electrolyte imbalance, no indication for renal replacement therapy at present. cont sodium bicarb 650mg bid for treatment of met acidosis. avoid further nephrotoxins, NSAIDs, IV contrast. (4) Anemia in chronic illness Current Visit: Yes Status: Acute Plan to address problem: s/p 1 PRBC transfusion. start EPO [id number] q week, hematology follow up as outpatient (5) Metabolic acidosis Current Visit: Yes Status: Acute Plan to address problem: cont sodium bicarb 650mg po bid. Subjective Date of service: 12/21/20 Principal diagnosis: Shortness of breath Interval history: Pt transferred to isolation room to rule out TB. no acute complaints Objective - Vital Signs Vital signs: Vital Signs - 12hr 12/20/20 12/21/20 12/21/20 23:56 03:19 08:48 Temperature 98.4 F 97.4 F L 98.1 F Pulse Rate 59 L 66 72 Respiratory 16 16 18 Rate Blood Pressure 117/46 129/65 Blood Pressure 164/78 [Left] O2 Sat by Pulse 94 97 97 Oximetry - Lab 12/20/20 13:05 12/20/20 13:05 Most recent lab results Calcium 8.1 mg/dL (8.4-10.2) L 12/20/20 13:05 Medications & Allergies - Medications Allergies/Adverse Reactions: Allergies lisinopril Allergy (Verified 09/04/20 08:36) Angioedema Home Medications: Home Medications Medication Instructions Recorded Confirmed Last Taken Type AtorvaSTATin [Lipitor] 40 mg PO DAILY #30 06/02/20 Unknown Rx Bumetanide 2 mg PO BID #60 06/02/20 Unknown Rx amLODIPine 10 mg PO DAILY #30 06/02/20 Unknown Rx hydrALAZINE [Apresoline TAB] 100 mg PO TID #90 tab 06/02/20 Unknown Rx metOLazone [Zaroxolyn] 5 mg PO QDAY #30 06/02/20 Unknown Rx Famotidine [Pepcid] 20 mg PO BID #10 tablet 09/04/20 Unknown Rx diphenhydrAMINE [Benadryl CAP] 25 mg PO Q6HR PRN #30 capsule 09/04/20 Unknown Rx methylPREDNISolone [Medrol 4MG 4 mg PO DAILY #1 tab.ds.pk 09/04/20 Unknown Rx DOSEPAK (21 tabs)] Active Medications: Generic Name Dose Route Start Last Admin Trade Name Freq PRN Reason Stop Dose Admin Acetaminophen 650 mg 12/17/20 15:26 Acetaminophen 325 Mg Tab PO Q4H PRN Pain MILD(1-3)/Fever >100.5/HENDRICKSON Atorvastatin Calcium 40 mg 12/17/20 22:00 12/20/20 22:08 Atorvastatin 40 Mg Tab PO 40 mg QHS NICKO Administration Bumetanide 2 mg 12/17/20 18:00 12/21/20 06:42 Bumetanide 1 Mg Tab PO 2 mg 0600,1800 NICKO Administration Diphenhydramine HCl 25 mg 12/17/20 15:25 Diphenhydramine 25 Mg Cap PO Q6HR PRN Allergy Symptoms Doxazosin Mesylate 2 mg 12/20/20 18:00 12/20/20 17:56 Doxazosin 1 Mg Tab PO 2 mg QPM NICKO Administration Famotidine 10 mg 12/17/20 22:00 12/21/20 09:06 Famotidine 10 Mg Tab PO 10 mg BID NICKO Administration Heparin Sodium (Porcine) 5,000 unit 12/18/20 10:00 12/21/20 09:06 Heparin 5,000 Unit/1 Ml Vial SUB-Q 5,000 unit Q12HR NICKO Administration Hydralazine HCl 100 mg 12/17/20 20:00 12/21/20 09:06 Hydralazine 100 Mg Tab PO 100 mg TID NICKO Administration Hydralazine HCl 10 mg 12/18/20 07:48 Hydralazine 20 Mg/1 Ml Inj IV Q3H PRN Blood Pressure Hydromorphone HCl 0.5 mg 12/17/20 15:26 12/17/20 20:28 Hydromorphone 1 Mg/1 Ml Inj IV 0.5 mg Q3H PRN Administration Pain , Severe (7-10) Sodium Chloride 1,000 mls @ 75 mls/hr 12/17/20 15:30 Nacl 0.9% 1000 Ml IV DIRECT NICKO Metoclopramide HCl 5 mg 12/19/20 10:00 Metoclopramide 10 Mg/2 Ml Inj IV Q6H PRN Nausea And Vomiting Metolazone 5 mg 12/17/20 17:00 12/21/20 06:42 Metolazone 5 Mg Tab PO 5 mg DAILY@0600 NICKO Administration Nifedipine 60 mg 12/20/20 14:00 12/21/20 09:06 Nifedipine Xl 60 Mg Tab PO 60 mg QDAY NICKO Administration Ondansetron HCl 4 mg 12/17/20 15:26 Ondansetron 4 Mg/2 Ml Inj IV Q8H PRN Nausea And Vomiting Oxycodone/Acetaminophen 1 tab 12/17/20 15:26 Oxycodone /Acetaminophen 5-325mg Tab PO Q6H PRN Pain, Moderate (4-6) Promethazine HCl 25 mg 12/17/20 15:26 Promethazine 25 Mg Rect Supp TN Q6H PRN N/V IF NPO AND NO IV ACCESS Sodium Chloride 10 ml 12/17/20 22:00 12/21/20 09:06 Sodium Chloride 0.9% 10 Ml Flush Syringe IV 10 ml BID NICKO Administration Sodium Chloride 10 ml 12/17/20 15:26 12/18/20 08:58 Sodium Chloride 0.9% 10 Ml Flush Syringe IV 10 ml PRN PRN Administration LINE FLUSH
--- NOTE | 2020-12-21 11:20 | Progress Note ---
Assessment and Plan Shortness of breath, chronic COPD exacerbation Abnormal EKG ECG shows sinus rhythm, with subtle ST depressions in the lateral leads. It will be noted that these abnormal ST segment changes were present on a previous ECG done 6 months ago. Echo shows a moderate to severe concentric left ventricular hypertrophy, mild left ventricular systolic dysfunction with EF 45%, and a small, hemodynamically insignificant pericardial effusion. Elevated troponin likely due to underlying chronic kidney disease Hypertension improved with the addition of Procardia XL Noncompliant with medications Further cardiac evaluation depends on clinical course. Subjective Date of service: 12/21/20 Principal diagnosis: Shortness of breath Interval history: Currently undergoing workup for TB. Blood pressure is improved. No cardiac events reported. Objective Vital Signs Temp Pulse Pulse Resp BP BP Pulse Ox 12/21/20 08:48 98.1 F 72 18 129/65 97 12/21/20 03:19 97.4 F L 66 16 117/46 97 12/20/20 23:56 98.4 F 59 L 16 164/78 94 12/20/20 21:24 97.8 F 58 L 18 160/82 98 12/20/20 17:56 61 167/77 12/20/20 17:39 97.6 F 61 20 167/77 96 12/20/20 14:51 67 12 130/65 99 12/20/20 14:41 59 L 11 L 130/65 98 12/20/20 14:30 59 L 14 130/65 98 12/20/20 14:21 62 11 L 150/72 98 12/20/20 14:11 58 L 12 150/72 99 12/20/20 14:00 59 L 13 150/72 97 12/20/20 13:51 59 L 10 L 150/71 98 12/20/20 13:41 60 11 L 150/71 98 12/20/20 13:30 63 10 L 150/71 98 12/20/20 13:21 65 15 150/69 100 12/20/20 13:11 64 15 150/69 98 12/20/20 13:00 61 15 150/69 96 12/20/20 12:51 71 15 151/72 98 12/20/20 12:41 68 14 151/72 96 12/20/20 12:31 59 L 14 151/72 96 12/20/20 12:21 63 17 142/68 98 12/20/20 12:11 59 L 11 L 142/68 98 12/20/20 12:00 98.7 F 58 L 61 13 142/68 96 12/20/20 11:51 59 L 12 169/81 97 12/20/20 11:41 61 12 169/81 97 12/20/20 11:30 59 L 11 L 147/69 97 12/20/20 11:21 59 L 11 L 162/74 97 - Physical Examination General: No Apparent Distress Cardiac: Positive: Reg Rate and Rhythm - Labs and Meds CBC 12/20/20 Range/Units 13:05 WBC 4.9 (4.5-11.0) K/mm3 RBC 2.90 L (3.65-5.03) M/mm3 Hgb 8.5 L (11.8-15.2) gm/dl Hct 24.4 L (35.5-45.6) % Plt Count 161 (140-440) K/mm3 Lymph # (Auto) 0.7 L (1.2-5.4) K/mm3 [place] # (Auto) 0.4 (0.0-0.8) K/mm3 Eos # (Auto) 0.0 (0.0-0.4) K/mm3 Baso # (Auto) 0.0 (0.0-0.1) K/mm3 Comprehensive Metabolic Panel 12/20/20 Range/Units 13:05 Sodium 137 (137-145) mmol/L Potassium 4.1 (3.6-5.0) mmol/L Chloride 105.0 (98-107) mmol/L Carbon Dioxide 22 (22-30) mmol/L BUN 75 H (9-20) mg/dL Creatinine 4.4 H (0.8-1.3) mg/dL Glucose 146 H (75-100) mg/dL Calcium 8.1 L (8.4-10.2) mg/dL
[2020-12-21 13:30] LABS: Basophils % (Auto) 0.5 % (0.0-1.8); Eosinophils % (Auto) 0.3 % (0.0-4.3); Hematocrit 23.1 % (35.5-45.6); Hemoglobin 7.8 gm/dl (11.8-15.2); Lymphocytes # (Auto) 0.8 K/mm3 (1.2-5.4); Mean Corpuscular HGB Conc 34 % (32-34); Mean Corpuscular Volume 85 fl (84-94); Monocytes # (Auto) 0.4 K/mm3 (0.0-0.8); Monocytes % (Auto) 10.2 % (0.0-7.3); Platelet Count 159 K/mm3 (140-440); Red Blood Count 2.71 M/mm3 (3.65-5.03); Red Cell Distribution Width 17.2 % (13.2-15.2)
[2020-12-21 14:09] LABS: Calcium 7.6 mg/dL (8.4-10.2)
--- NOTE | 2020-12-21 15:27 | Progress Note ---
Assessment and Plan Cultures: COVID-19 PCR: Negative A/P: 55-year-old male with COPD, hypertension, diabetes mellitus type 2, CKD came into the emergency room due to shortness of breath of breath. It seems, he had ran out of his medications. Upon evaluation in the ER, he has been afebrile. Labs showed no leukocytosis, did have evidence of anemia with hemoglobin of 6.0, creatinine 4.0, [place] proB[place] [id number]: #Right upper lobe lesion / cavitary: Seems to be related to bronchiectasis based on CT scan. No definitive cavitation seen. No fever, no WBC elevation, procal is normal as well. ?prior aspiration. Born in [place]. No history of international travel. No history of incarceration. No history of homelessness. 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 Denies substance abuse. #CKD stage IV: Nephrology following #Acute CHF exacerbation: NT proBNP was 50 5K on admission. Cardiology following. On diuretics. #Anemia Recs: -low suspicion for TB. Quantiferon already ordered, can follow up -obtain AFB x 3 with induced sputum -no abx needed, procal is low even in setting of his CKD GQueta Alberts MD [facility] O: [phone] F: [phone] Subjective Date of service: 12/21/20 Principal diagnosis: Shortness of breath Interval history: Afebrile, white count 4.2. Sputum culture negative. Awaiting AFB results. Objective - Exam Narrative Exam: Physical Exam: Constitutional: Alert, cooperative. No acute distress Head, Ears, Nose: Normocephalic, atraumatic. External ears, nose normal Eyes: Conjunctivae/corneas clear. No icterus. No ptosis. Neck: Supple, no meningeal signs Cardiovascular: S1, S2 normal. Respiratory: Good air entry, clear to auscultation bilaterally GI: Soft, non-tender; bowel sounds normal. No peritoneal signs Musculoskeletal: No pedal edema, no cyanosis. Skin: No rash or abscess Hem/Lymphatic: No palpable cervical or supraclavicular nodes. No lymphangitis Psych: Mood ok. Affect normal Neurological: Awake, alert, oriented. No gross abnormality - Constitutional Vitals: Vital Signs Temp Pulse Resp BP Pulse Ox 98.4 F 67 18 130/53 98 12/21/20 13:14 12/21/20 13:14 12/21/20 13:14 12/21/20 13:14 12/21/20 13:14 Temperature -Last 24 Hours Temperature 98.4 F Temperature 98.1 F Temperature 97.4 F Temperature 98.4 F Temperature 97.8 F Temperature 97.6 F - Labs CBC & Chem 7: 12/21/20 12:52 12/21/20 12:52 Labs: Abnormal lab results 12/21/20 12/21/20 Range/Units 12:52 12:52 WBC 4.2 L (4.5-11.0) K/mm3 RBC 2.71 L (3.65-5.03) M/mm3 Hgb 7.8 L (11.8-15.2) gm/dl Hct 23.1 L (35.5-45.6) % RDW 17.2 H (13.2-15.2) % [place] % (Auto) 10.2 H (0.0-7.3) % Lymph # (Auto) 0.8 L (1.2-5.4) K/mm3 Sodium 136 L (137-145) mmol/L BUN 81 H (9-20) mg/dL Creatinine 4.9 H (0.8-1.3) mg/dL Glucose 152 H (75-100) mg/dL Calcium 7.6 L (8.4-10.2) mg/dL
[2020-12-21] MEDS: DOXAZOSIN 1 MG TAB PO SCH (18:06)
[2020-12-22] MEDS: BUMETANIDE 1 MG TAB PO SCH (06:18)
[2020-12-22] MEDS: metOLazone 5 MG TAB PO SCH (06:18)
--- NOTE | 2020-12-22 08:33 | Progress Note ---
Assessment and Plan Assessment and plan: (1) Cavitary lesion of lung Current Visit: Yes Status: Acute Plan to address problem: R/o TB versus malignancy CT chest requested Quantiferon gld test and AFB x 3 (2) Hypertensive emergency Current Visit: Yes Status: Acute Plan to address problem: Medications adjusted IV Hydralazine prn q3h (3) Renal failure (ARF), acute on chronic Current Visit: Yes Status: Acute Qualifiers: Acute renal failure type: unspecified Chronic kidney disease stage: unspecified stage Qualified Code(s): N17.9 - Acute kidney failure, unspecified; N18.9 - Chronic kidney disease, unspecified Plan to address problem: Renal consult (4) CHF exacerbation Current Visit: Yes Status: Acute Qualifiers: Heart failure type: unspecified Qualified Code(s): I50.9 - Heart failure, unspecified Plan to address problem: On IV lasix q24h ECHO for EF (5) GERD (gastroesophageal reflux disease) Current Visit: Yes Status: Chronic Qualifiers: Esophagitis presence: without esophagitis Qualified Code(s): K21.9 - Gastro-esophageal reflux disease without esophagitis Plan to address problem: on protonix (6) HLD (hyperlipidemia) Current Visit: Yes Status: Chronic Qualifiers: Hyperlipidemia type: mixed hyperlipidemia Qualified Code(s): E78.2 - Mixed hyperlipidemia Plan to address problem: On Statins (7) DVT prophylaxis Current Visit: Yes Status: Acute Plan to address problem: on Heparin and GI prophylaxis 12/18/2020 -CT chest showed cavitary lesion, TB versus neoplasm; ID consulted -Patient is off oxygen and doing well -Blood pressure is still uncontrolled and I added clonidine to his medication regimen, and we will continue to follow -Patient's creatinine 4.3 and GFR is 17, unknown baseline and will put a consult for nephrology -Patient has elevated BNP and troponin level, cardiology consulted -Patient's hemoglobin is 6.7 this morning a unit of packed RBC was ordered. Will monitor posttransfusion H&H. 12/19/2020 --CT chest showed cavitary lesion, TB versus neoplasm; ID consulted and pending evaluation -Patient is off oxygen and doing well -Blood pressure is is controlled after clonidine started -Patient's creatinine 4.3 and GFR is 17, nephrology consulted and will follow recommendation -Patient has elevated BNP and troponin level, cardiology consulted -Posttransfusion hemoglobin is 7.3 2/22/21 -ID was consulted for CT findings but his suspicion is low for TB, nevertheless recommended to do AFB x3 -Nephrology is following -Patient has CHF cardiology is following, on Bumex -Blood pressure is controlled, continue current medication regimen -Morning labs are pending 12/21/2020 -Patient is doing well, ID ordered sputum for AFB 12/22/2020 -Disposition is per ID recommendation, induced sputum is not collected yet History Interval history: Patient was seen and evaluated this morning Patient was alert and oriented Patient was off oxygen Hospitalist Physical - Physical exam Narrative exam: Not in cardiopulmonary distress. The patient appeared well nourished and normally developed. Vital signs as documented. Head exam is unremarkable. No scleral icterus . Neck is without jugular venous distension, thyromegaly, or carotid bruits. Lungs are clear to auscultation. Cardiac exam reveals regular rate and Rhythm. Abdominal exam reveals normal bowel sounds, nontender, no organomegaly. Extremities are nonedematous and both femoral and pedal pulses are normal. TEST ANALYST: Alert and oriented 3. No focal weakness. - Constitutional Vitals: Temp Pulse Resp BP Pulse Ox 98.8 F 66 15 129/48 96 12/22/20 04:38 12/22/20 04:38 12/22/20 04:38 12/22/20 04:38 12/22/20 04:38 General appearance: Present: mild distress, well-nourished HEART Score - HEART Score Troponin: Troponin T 0.234 ng/mL (0.00-0.029) H* 12/17/20 Unknown Results - Labs CBC & Chem 7: 12/21/20 12:52 12/21/20 12:52 Labs: Laboratory Last Values WBC 4.2 K/mm3 (4.5-11.0) L 12/21/20 12:52 RBC 2.71 M/mm3 (3.65-5.03) L 12/21/20 12:52 Hgb 7.8 gm/dl (11.8-15.2) L 12/21/20 12:52 Hct 23.1 % (35.5-45.6) L 12/21/20 12:52 MCV 85 fl (84-94) 12/21/20 12:52 MCH 29 pg (28-32) 12/21/20 12:52 MCHC 34 % (32-34) 12/21/20 12:52 RDW 17.2 % (13.2-15.2) H 12/21/20 12:52 Plt Count 159 K/mm3 (140-440) 12/21/20 12:52 Lymph % (Auto) 19.0 % (13.4-35.0) 12/21/20 12:52 [place] % (Auto) 10.2 % (0.0-7.3) H 12/21/20 12:52 Eos % (Auto) 0.3 % (0.0-4.3) 12/21/20 12:52 Baso % (Auto) 0.5 % (0.0-1.8) 12/21/20 12:52 Lymph # (Auto) 0.8 K/mm3 (1.2-5.4) L 12/21/20 12:52 [place] # (Auto) 0.4 K/mm3 (0.0-0.8) 12/21/20 12:52 Eos # (Auto) 0.0 K/mm3 (0.0-0.4) 12/21/20 12:52 Baso # (Auto) 0.0 K/mm3 (0.0-0.1) 12/21/20 12:52 Seg Neutrophils % 70.0 % (40.0-70.0) 12/21/20 12:52 Seg Neutrophils # 2.9 K/mm3 (1.8-7.7) 12/21/20 12:52 D-Dimer 541.77 ng/mlDDU (0-234) H 12/18/20 08:45 Sodium 136 mmol/L (137-145) L 12/21/20 12:52 Potassium 3.7 mmol/L (3.6-5.0) 12/21/20 12:52 Chloride 102.9 mmol/L (98-107) 12/21/20 12:52 Carbon Dioxide 23 mmol/L (22-30) 12/21/20 12:52 Anion Gap 14 mmol/L 12/21/20 12:52 BUN 81 mg/dL (9-20) H 12/21/20 12:52 Creatinine 4.9 mg/dL (0.8-1.3) H 12/21/20 12:52 Estimated GFR 15 ml/min 12/21/20 12:52 BUN/Creatinine Ratio 17 % 12/21/20 12:52 Glucose 152 mg/dL (75-100) H 12/21/20 12:52 POC Glucose 106 mg/dL (70-105) H 12/18/20 16:57 Hemoglobin A1c 6.4 % (4-6) H 12/17/20 03:10 Calcium 7.6 mg/dL (8.4-10.2) L 12/21/20 12:52 Ferritin 259.5 ng/mL (30.0-300.0) 12/18/20 08:45 Total Bilirubin 0.30 mg/dL (0.1-1.2) 12/18/20 04:57 AST 16 units/L (5-40) 12/18/20 04:57 ALT 32 units/L (7-56) 12/18/20 04:57 Alkaline Phosphatase 98 units/L (35-129) 12/18/20 04:57 Lactate Dehydrogenase 305 units/L (91-180) H 12/18/20 08:45 Total Creatine Kinase 289 units/L (55-170) H 12/18/20 00:47 CK-MB (CK-2) 7.5 ng/mL (0.0-4.0) H 12/18/20 00:47 CK-MB (CK-2) Rel Index 2.5 (0-4) 12/18/20 00:47 Troponin T 0.234 ng/mL (0.00-0.029) H* 12/17/20 Unknown C-Reactive Protein 0.20 mg/dL (0.00-1.30) 12/18/20 08:45 NT-Pro-B Natriuret Pep 40037 pg/mL (0-900) H 12/17/20 Unknown Total Protein 5.8 g/dL (6.3-8.2) L 12/18/20 04:57 Albumin 3.1 g/dL (3.9-5) L 12/18/20 04:57 Albumin/Globulin Ratio 1.1 % 12/18/20 04:57 Triglycerides 104 mg/dL (2-149) 12/17/20 Unknown Cholesterol 179 mg/dL (50-199) 12/17/20 Unknown LDL Cholesterol Direct 107 mg/dL (50-130) 12/17/20 Unknown HDL Cholesterol 75 mg/dL (40-59) H 12/17/20 Unknown Cholesterol/HDL Ratio 2.38 % 12/17/20 Unknown Procalcitonin 0.09 ng/mL (<0.15) 12/18/20 08:45 Coronavirus (PCR) Negative (Negative) 12/18/20 09:40 Blood Type B POSITIVE 12/17/20 04:15 Antibody Screen Negative 12/17/20 04:15 Crossmatch See Detail 12/17/20 04:15 Microbiology: Microbiology 12/20/20 10:00 Sputum - Expectorated Sputum Sputum Culture - Preliminary - Diagnostic Impressions Diagnostic Impressions: Echocardiogram 12/18/20 07:47 Transthoracic Echocardiogram Indication: Dyspnea BP: 154/70 HR: 62 Conclusions *The left ventricular chamber size is mildly dilated. *Moderate to severe concentric left ventricular hypertrophy is observed. *Global left ventricular systolic function is mild to moderately decreased. *The estimated ejection fraction is 40-45%. *The left atrium is mildly dilated. *There is mild mitral regurgitation. *There is mild aortic regurgitation. *There is mild tricuspid regurgitation. *There is evidence of mild pulmonary hypertension. *The right ventricular systolic pressure is calculated at 34 mmHg. *There is a minimal-small pericardial effusion. No tamponade. Findings Left Ventricle: The left ventricular chamber size is mildly dilated. Moderate to severe concentric left ventricular hypertrophy is observed. Global left ventricular systolic function is mild to moderately decreased. The estimated ejection fraction is 40-45%. Left Atrium: The left atrium is mildly dilated. Right Ventricle: The right ventricle is mildly dilated. The right ventricular global systolic function is mildly reduced. Right Atrium: The right atrium is mildly dilated. Aortic Valve: The aortic valve is trileaflet. There is mild aortic regurgitation. There is no evidence of aortic stenosis. Mitral Valve: The mitral valve leaflets are mildly thickened. There is mild mitral regurgitation. There is no evidence of mitral stenosis. Tricuspid Valve: There is mild tricuspid regurgitation. The right ventricular systolic pressure is calculated at 34 mmHg. There is evidence of mild pulmonary hypertension. Pulmonic Valve: There is mild pulmonic regurgitation. Pericardium: There is a small pericardial effusion. A left pleural effusion is present. Aorta: There is no dilatation of the ascending aorta. There is no dilatation of the aortic root. Venous: The inferior vena cava appears normal in size. Measurements Chambers 2D Name Value Normal Range IVSd (2D) 1.31 cm (0.6 - 1.1) LVPWd (2D) 1.42 cm (0.6 - 1.1) LVIDd (2D) 6.16 cm (3.7 - 5.6) LVIDs (2D) 4.17 cm (2 - 3.8) LV FS (2D) 32.33 % - EF Teichholz (2D) 59.62 % - Ao root diameter (2D) 3.07 cm (2 - 3.7) Volumes/Mass Name Value Normal Range LA ESV SP 4CH (A/L) 77.67 ml - LA ESV SP 2CH (A/L) 113.51 ml - LA ESV BP (A/L) 103.52 ml - LA ESV BP (A/L) index 52.28 ml/m2 - LA ESV SP 4CH (MOD) 65.73 ml - LA ESV SP 2CH (MOD) 100.9 ml - LA ESV BP (MOD) 89.75 ml - LA ESV BP (MOD) index 45.33 ml/m2 - Diastolic/Systolic Function Name Value Normal Range MV E-wave Vmax 0.88 m/sec - MV deceleration time 420.75 msec - MV A-wave Vmax 0.59 m/sec - MV E:A ratio 1.48 ratio - Aortic Valve Name Value Normal Range AV Vmax 1.23 m/sec - AV VTI 29.09 cm - AV peak gradient 6.07 mmHg - AV mean gradient 3.5 mmHg - LVOT diameter 2.41 cm - LVOT Vmax 1.07 m/sec - LVOT VTI 22.38 cm - LVOT peak gradient 4.55 mmHg - LVOT mean gradient 2.25 mmHg - SV LVOT 101.73 ml - TABBY (continuity Vmax) 3.93 cm2 - TABBY (continuity VTI) 3.5 cm2 - AR PHT 864.51 msec - AR peak gradient 24.72 mmHg - Mitral Valve Name Value Normal Range MR Vmax 5.01 m/sec - Tricuspid Valve Name Value Normal Range TR Vmax 2.78 m/sec - TR peak gradient 31 mmHg - RAP 3 mmHg - RVSP 34 mmHg - IVC diameter 2.29 cm (1.2 - 2.3) Pulmonic Valve/Qp:Qs Name Value Normal Range PV Vmax 0.98 m/sec - PV peak gradient 3.88 mmHg - GA end-diastolic Vmax 1.31 m/sec - PV acceleration time 125.59 msec - Buenrostro/IV: Voiding Method Urinal Active Medications - Current Medications Current Medications: Generic Name Dose Route Start Last Admin Trade Name Freq PRN Reason Stop Dose Admin Acetaminophen 650 mg 12/17/20 15:26 Acetaminophen 325 Mg Tab PO Q4H PRN Pain MILD(1-3)/Fever >100.5/HENDRICKSON Atorvastatin Calcium 40 mg 12/17/20 22:00 12/21/20 21:30 Atorvastatin 40 Mg Tab PO 40 mg QHS NICKO Administration Bumetanide 2 mg 12/17/20 18:00 12/22/20 06:18 Bumetanide 1 Mg Tab PO 2 mg 0600,1800 NICKO Administration Diphenhydramine HCl 25 mg 12/17/20 15:25 Diphenhydramine 25 Mg Cap PO Q6HR PRN Allergy Symptoms Doxazosin Mesylate 2 mg 12/20/20 18:00 12/21/20 18:06 Doxazosin 1 Mg Tab PO 2 mg QPM NICKO Administration Famotidine 10 mg 12/17/20 22:00 12/21/20 21:31 Famotidine 10 Mg Tab PO 10 mg BID NICKO Administration Heparin Sodium (Porcine) 5,000 unit 12/18/20 10:00 12/21/20 21:32 Heparin 5,000 Unit/1 Ml Vial SUB-Q 5,000 unit Q12HR NICKO Administration Hydralazine HCl 100 mg 12/17/20 20:00 12/21/20 21:30 Hydralazine 100 Mg Tab PO 100 mg TID NICKO Administration Hydralazine HCl 10 mg 12/18/20 07:48 Hydralazine 20 Mg/1 Ml Inj IV Q3H PRN Blood Pressure Hydromorphone HCl 0.5 mg 12/17/20 15:26 12/17/20 20:28 Hydromorphone 1 Mg/1 Ml Inj IV 0.5 mg Q3H PRN Administration Pain , Severe (7-10) Sodium Chloride 1,000 mls @ 75 mls/hr 12/17/20 15:30 Nacl 0.9% 1000 Ml IV DIRECT NICKO Metoclopramide HCl 5 mg 12/19/20 10:00 Metoclopramide 10 Mg/2 Ml Inj IV Q6H PRN Nausea And Vomiting Metolazone 5 mg 12/17/20 17:00 12/22/20 06:18 Metolazone 5 Mg Tab PO 5 mg DAILY@0600 NICKO Administration Nifedipine 60 mg 12/20/20 14:00 12/21/20 09:06 Nifedipine Xl 60 Mg Tab PO 60 mg QDAY NICKO Administration Ondansetron HCl 4 mg 12/17/20 15:26 Ondansetron 4 Mg/2 Ml Inj IV Q8H PRN Nausea And Vomiting Oxycodone/Acetaminophen 1 tab 12/17/20 15:26 Oxycodone /Acetaminophen 5-325mg Tab PO Q6H PRN Pain, Moderate (4-6) Promethazine HCl 25 mg 12/17/20 15:26 Promethazine 25 Mg Rect Supp GA Q6H PRN N/V IF NPO AND NO IV ACCESS Sodium Chloride 10 ml 12/17/20 22:00 12/21/20 21:31 Sodium Chloride 0.9% 10 Ml Flush Syringe IV 10 ml BID NICKO Administration Sodium Chloride 10 ml 12/17/20 15:26 12/18/20 08:58 Sodium Chloride 0.9% 10 Ml Flush Syringe IV 10 ml PRN PRN Administration LINE FLUSH
[2020-12-22] MEDS: hydrALAZINE 100 MG TAB PO SCH ×3 (09:28→22:25)
[2020-12-22] MEDS: NIFEdipine XL 60 MG TAB PO SCH (09:29)
[2020-12-22] MEDS: HEPARIN 5,000 UNIT/1 ML VIAL SUB-Q SCH ×2 (09:29→22:25)
[2020-12-22] MEDS: FAMOTIDINE 10 MG TAB PO SCH ×2 (09:29→22:25)
--- NOTE | 2020-12-22 10:14 | Progress Note ---
Assessment and Plan Shortness of breath, chronic on TB isolation and undergoing work-up for the finding of a right upper lung cavitary lesion on CT scan. COPD exacerbation Abnormal EKG ECG shows sinus rhythm, with subtle ST depressions in the lateral leads. It will be noted that these abnormal ST segment changes were present on a previous ECG done 6 months ago. Echo shows a moderate to severe concentric left ventricular hypertrophy, mild left ventricular systolic dysfunction with EF 45%, and a small, hemodynamically insignificant pericardial effusion. Elevated troponin likely due to underlying chronic kidney disease Hypertension improved with the addition of Procardia XL Noncompliant with medications Further cardiac evaluation depends on clinical course. Subjective Date of service: 12/22/20 Principal diagnosis: Shortness of breath Interval history: Currently undergoing workup for TB. No cardiac complaints. Objective Vital Signs Temp Pulse Resp BP BP Pulse Ox 12/22/20 09:48 98.0 F 71 18 168/71 97 12/22/20 09:01 99 12/22/20 04:38 98.8 F 66 15 129/48 96 12/22/20 00:00 98.6 F 71 16 146/75 92 12/21/20 21:29 98.4 F 73 16 148/78 97 12/21/20 17:53 97.9 F 72 18 132/58 98 12/21/20 13:14 98.4 F 67 18 130/53 98 - Physical Examination General: No Apparent Distress HEENT: Positive: PERRL Cardiac: Positive: Reg Rate and Rhythm Neuro: Positive: Grossly Intact Extremities: Absent: edema - Labs and Meds CBC 12/21/20 Range/Units 12:52 WBC 4.2 L (4.5-11.0) K/mm3 RBC 2.71 L (3.65-5.03) M/mm3 Hgb 7.8 L (11.8-15.2) gm/dl Hct 23.1 L (35.5-45.6) % Plt Count 159 (140-440) K/mm3 Lymph # (Auto) 0.8 L (1.2-5.4) K/mm3 [place] # (Auto) 0.4 (0.0-0.8) K/mm3 Eos # (Auto) 0.0 (0.0-0.4) K/mm3 Baso # (Auto) 0.0 (0.0-0.1) K/mm3 Comprehensive Metabolic Panel 12/21/20 Range/Units 12:52 Sodium 136 L (137-145) mmol/L Potassium 3.7 (3.6-5.0) mmol/L Chloride 102.9 (98-107) mmol/L Carbon Dioxide 23 (22-30) mmol/L BUN 81 H (9-20) mg/dL Creatinine 4.9 H (0.8-1.3) mg/dL Glucose 152 H (75-100) mg/dL Calcium 7.6 L (8.4-10.2) mg/dL
--- NOTE | 2020-12-22 11:09 | Progress Note ---
Assessment and Plan - Patient Problems (1) Acute on chronic heart failure with preserved ejection fraction (HFpEF) Current Visit: Yes Status: Acute Plan to address problem: rising BUN/Cr noted in the setting of diuresis with bumex, pt in negative fluid balance > 3L since admission. Will change bumex to 2mg po qd. check daily weight, strict I/Os (2) Hypertensive chronic kidney disease with stage 1 through stage 4 chronic kidney disease, or unspecified chronic kidney disease Current Visit: Yes Status: Acute Plan to address problem: monitor BP on current meds (3) Chronic kidney disease, stage 4 (severe) Current Visit: Yes Status: Acute Plan to address problem: progressive CKD stage 4, d/t presumed hypertensive nephrosclerosis. pt without acute uremic symptoms, electrolyte imbalance, no indication for renal replacement therapy at present. cont sodium bicarb 650mg bid for treatment of met acidosis. avoid further nephrotoxins, NSAIDs, IV contrast. (4) Anemia in chronic illness Current Visit: Yes Status: Acute Plan to address problem: s/p 1 PRBC transfusion. start EPO [id number] q week, hematology follow up as outpatient (5) Metabolic acidosis Current Visit: Yes Status: Acute Plan to address problem: cont sodium bicarb 650mg po bid. Subjective Date of service: 12/22/20 Principal diagnosis: Shortness of breath Interval history: Pt transferred to isolation room to rule out TB. no acute complaints Objective - Vital Signs Vital signs: Vital Signs - 12hr 12/22/20 12/22/20 12/22/20 00:00 04:38 09:01 Temperature 98.6 F 98.8 F Pulse Rate 71 66 Respiratory 16 15 Rate Blood Pressure 129/48 Blood Pressure 146/75 [Left] O2 Sat by Pulse 92 96 99 Oximetry 12/22/20 12/22/20 09:48 10:51 Temperature 98.0 F Pulse Rate 71 85 Respiratory 18 Rate Blood Pressure 168/71 Blood Pressure [Left] O2 Sat by Pulse 97 Oximetry - General Appearance General appearance: well-developed, well-nourished, appears stated age EENT: ATNC, PERRL, mucous membranes moist Neck: no JVD Respiratory: Present: Clear to Ascultation Cardiology: regular, S1S2 Gastrointestinal: normoactive bowel sounds Integumentary: no rash, other (no edema ) - Lab 12/21/20 12:52 12/21/20 12:52 Most recent lab results Calcium 7.6 mg/dL (8.4-10.2) L 12/21/20 12:52 Medications & Allergies - Medications Allergies/Adverse Reactions: Allergies lisinopril Allergy (Verified 09/04/20 08:36) Angioedema Home Medications: Home Medications Medication Instructions Recorded Confirmed Last Taken Type AtorvaSTATin [Lipitor] 40 mg PO DAILY #30 06/02/20 12/21/20 Unknown Rx Bumetanide 2 mg PO BID #60 06/02/20 12/21/20 Unknown Rx amLODIPine 10 mg PO DAILY #30 06/02/20 12/21/20 Unknown Rx hydrALAZINE [Apresoline TAB] 100 mg PO TID #90 tab 06/02/20 12/21/20 Unknown Rx metOLazone [Zaroxolyn] 5 mg PO QDAY #30 06/02/20 12/21/20 Unknown Rx Famotidine [Pepcid] 20 mg PO BID #10 tablet 09/04/20 12/21/20 Unknown Rx diphenhydrAMINE [Benadryl CAP] 25 mg PO Q6HR PRN #30 capsule 09/04/20 12/21/20 Unknown Rx methylPREDNISolone [Medrol 4MG 4 mg PO DAILY #1 tab.ds.pk 09/04/20 12/21/20 Unknown Rx DOSEPAK (21 tabs)] Active Medications: Generic Name Dose Route Start Last Admin Trade Name Freq PRN Reason Stop Dose Admin Acetaminophen 650 mg 12/17/20 15:26 Acetaminophen 325 Mg Tab PO Q4H PRN Pain MILD(1-3)/Fever >100.5/HENDRICKSON Atorvastatin Calcium 40 mg 12/17/20 22:00 12/21/20 21:30 Atorvastatin 40 Mg Tab PO 40 mg QHS NICKO Administration Bumetanide 2 mg 12/23/20 10:00 Bumetanide 1 Mg Tab PO DAILY NICKO Diphenhydramine HCl 25 mg 12/17/20 15:25 Diphenhydramine 25 Mg Cap PO Q6HR PRN Allergy Symptoms Doxazosin Mesylate 2 mg 12/20/20 18:00 12/21/20 18:06 Doxazosin 1 Mg Tab PO 2 mg QPM NICKO Administration Famotidine 10 mg 12/17/20 22:00 12/22/20 09:29 Famotidine 10 Mg Tab PO 10 mg BID NICKO Administration Heparin Sodium (Porcine) 5,000 unit 12/18/20 10:00 12/22/20 09:29 Heparin 5,000 Unit/1 Ml Vial SUB-Q 5,000 unit Q12HR NICKO Administration Hydralazine HCl 100 mg 12/17/20 20:00 12/22/20 09:28 Hydralazine 100 Mg Tab PO 100 mg TID NICKO Administration Hydralazine HCl 10 mg 12/18/20 07:48 Hydralazine 20 Mg/1 Ml Inj IV Q3H PRN Blood Pressure Hydromorphone HCl 0.5 mg 12/17/20 15:26 12/17/20 20:28 Hydromorphone 1 Mg/1 Ml Inj IV 0.5 mg Q3H PRN Administration Pain , Severe (7-10) Metoclopramide HCl 5 mg 12/19/20 10:00 Metoclopramide 10 Mg/2 Ml Inj IV Q6H PRN Nausea And Vomiting Nifedipine 60 mg 12/20/20 14:00 12/22/20 09:29 Nifedipine Xl 60 Mg Tab PO 60 mg QDAY NICKO Administration Ondansetron HCl 4 mg 12/17/20 15:26 Ondansetron 4 Mg/2 Ml Inj IV Q8H PRN Nausea And Vomiting Oxycodone/Acetaminophen 1 tab 12/17/20 15:26 Oxycodone /Acetaminophen 5-325mg Tab PO Q6H PRN Pain, Moderate (4-6) Promethazine HCl 25 mg 12/17/20 15:26 Promethazine 25 Mg Rect Supp [place] Q6H PRN N/V IF NPO AND NO IV ACCESS Sodium Chloride 10 ml 12/17/20 22:00 12/22/20 09:29 Sodium Chloride 0.9% 10 Ml Flush Syringe IV 10 ml BID NICKO Administration Sodium Chloride 10 ml 12/17/20 15:26 12/18/20 08:58 Sodium Chloride 0.9% 10 Ml Flush Syringe IV 10 ml PRN PRN Administration LINE FLUSH
[2020-12-22] MEDS: DOXAZOSIN 1 MG TAB PO SCH (17:22)
--- NOTE | 2020-12-22 17:58 | Progress Note ---
Assessment and Plan Cultures: COVID-19 PCR: Negative A/P: 55-year-old male with COPD, hypertension, diabetes mellitus type 2, CKD came into the emergency room due to shortness of breath of breath. It seems, he had ran out of his medications. Upon evaluation in the ER, he has been afebrile. Labs showed no leukocytosis, did have evidence of anemia with hemoglobin of 6.0, creatinine 4.0, [place] proBNP was [id number]: #Right upper lobe lesion / cavitary: Seems to be related to bronchiectasis based on CT scan. No definitive cavitation seen. No fever, no WBC elevation, procal is normal as well. ?prior aspiration. Born in [place]. No history of international travel. No history of incarceration. No history of homelessness. 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 Denies substance abuse. #CKD stage IV: Nephrology following #Acute CHF exacerbation: NT proBNP was 50 5K on admission. Cardiology following. On diuretics. #Anemia Recs: -low suspicion for TB. Quantiferon already ordered, can follow up -obtain AFB x 3 with induced sputum -no abx needed, procal is low even in setting of his CKD GQueta Alberts MD [facility] O: [phone] F: [phone] Subjective Date of service: 12/22/20 Principal diagnosis: Shortness of breath Interval history: Afebrile, slightly low white count. Objective - Exam Narrative Exam: Physical Exam: Constitutional: Alert, cooperative. No acute distress Head, Ears, Nose: Normocephalic, atraumatic. External ears, nose normal Eyes: Conjunctivae/corneas clear. No icterus. No ptosis. Neck: Supple, no meningeal signs Cardiovascular: S1, S2 normal. Respiratory: Good air entry, clear to auscultation bilaterally GI: Soft, non-tender; bowel sounds normal. No peritoneal signs Musculoskeletal: No pedal edema, no cyanosis. Skin: No rash or abscess Hem/Lymphatic: No palpable cervical or supraclavicular nodes. No lymphangitis Psych: Mood ok. Affect normal Neurological: Awake, alert, oriented. No gross abnormality - Constitutional Vitals: Vital Signs Temp Pulse Resp BP Pulse Ox 98.0 F 85 18 168/71 97 12/22/20 09:48 12/22/20 10:51 12/22/20 09:48 12/22/20 09:48 12/22/20 09:48 Temperature -Last 24 Hours Temperature 98.0 F Temperature 98.8 F Temperature 98.6 F Temperature 98.4 F - Labs CBC & Chem 7: 12/21/20 12:52 12/21/20 12:52
[2020-12-23] MEDS: hydrALAZINE 100 MG TAB PO SCH ×2 (08:43→15:09)
--- NOTE | 2020-12-23 09:27 | Progress Note ---
Assessment and Plan Shortness of breath, chronic on TB isolation and undergoing work-up for the finding of a right upper lung cavitary lesion on CT scan. COPD exacerbation Abnormal EKG ECG shows sinus rhythm, with subtle ST depressions in the lateral leads. It will be noted that these abnormal ST segment changes were present on a previous ECG done 6 months ago. Echo shows a moderate to severe concentric left ventricular hypertrophy, mild left ventricular systolic dysfunction with EF 45%, and a small, hemodynamically insignificant pericardial effusion. Elevated troponin likely due to underlying chronic kidney disease Chronic kidney disease Hypertension Noncompliant with medications Patient is undergoing workup for TB. Cardiac status is stable. Subjective Date of service: 12/23/20 Principal diagnosis: Shortness of breath Interval history: No cardiac events. Objective Vital Signs Temp Pulse Resp BP Pulse Ox 12/23/20 04:13 98.5 F 72 16 141/66 97 12/22/20 23:56 98.8 F 76 15 150/65 97 12/22/20 22:00 97 12/22/20 20:17 97.8 F 72 16 147/64 97 12/22/20 10:51 85 12/22/20 09:48 98.0 F 71 18 168/71 97 - Physical Examination General: No Apparent Distress Cardiac: Positive: Reg Rate and Rhythm Extremities: Absent: edema
[2020-12-23] MEDS ORDERED: BUMETANIDE 1 MG TAB PO SCH (10:00)
[2020-12-23] MEDS: FAMOTIDINE 10 MG TAB PO SCH (12:07)
[2020-12-23] MEDS: NIFEdipine XL 60 MG TAB PO SCH (12:08)
[2020-12-23] MEDS: HEPARIN 5,000 UNIT/1 ML VIAL SUB-Q SCH (12:12)
--- NOTE | 2020-12-23 13:04 | Discharge Summary ---
Providers - Providers Date of Admission: 12/17/20 04:13 Date of discharge: 12/23/20 Attending physician: MINISTERIO SILVEIRA MD 12/18/20 00:28 Consult to Physician [CONS] Routine Comment: Consulting Provider: LAURA OBRIEN Physician Instructions: Reason For Exam: BOB 12/18/20 00:29 Consult to Physician [CONS] Routine Comment: Consulting Provider: LUDMILA CONWAY Physician Instructions: Reason For Exam: elevated troponin 12/18/20 07:38 Consult to Physician [CONS] Routine Comment: Consulting Provider: LUKASZ HUBBARD Physician Instructions: Reason For Exam: Right upper lobe cavitary lesion Primary care physician: ASSET COORDINATOR Hospitalization Reason for admission: Acute on chronic renal failure, acute on chronic diastolic heart failure, Condition: Stable Hospital course: History of present illness: 55-year-old male who presents emergency room with complaints of shortness of breath. Patient brought in by EMS. Report received from EMS. Patient states he has history of COPD, diabetes and hypertension and renal disease. Patient states that he ran out of his medications a few weeks ago. Topamax Patient states his shortness of breath better with rest and worse with exertion. Patient states he feels he is having a COPD attack. Patient denies recent travel. Patient denies recent international travel. Patient denies exposure to the novel coronavirus. Patient denies sick contacts. Patient denies fever and chills. Patient denies cough. Patient denies diarrhea. Patient denies coming in contact with anybody with symptoms of the novel coronavirus. Hospital course (1) Cavitary lesion of lung Current Visit: Yes Status: Acute Plan to address problem: R/o TB versus malignancy CT chest requested Quantiferon gld test and AFB x 3 (2) Hypertensive emergency Current Visit: Yes Status: Acute Plan to address problem: Medications adjusted IV Hydralazine prn q3h (3) Renal failure (ARF), acute on chronic Current Visit: Yes Status: Acute Qualifiers: Acute renal failure type: unspecified Chronic kidney disease stage: unspecified stage Qualified Code(s): N17.9 - Acute kidney failure, u nspecified; N18.9 - Chronic kidney disease, unspecified Plan to address problem: Renal consult (4) CHF exacerbation Current Visit: Yes Status: Acute Qualifiers: Heart failure type: unspecified Qualified Code(s): I50.9 - Heart failure, unspecified Plan to address problem: On IV lasix q24h ECHO for EF (5) GERD (gastroesophageal reflux disease) Current Visit: Yes Status: Chronic Qualifiers: Esophagitis presence: without esophagitis Qualified Code(s): K21.9 - Gastro-esophageal reflux disease without esophagitis Plan to address problem: on protonix (6) HLD (hyperlipidemia) Current Visit: Yes Status: Chronic Qualifiers: Hyperlipidemia type: mixed hyperlipidemia Qualified Code(s): E78.2 - Mixed hyperlipidemia Plan to address problem: On Statins (7) DVT prophylaxis Current Visit: Yes Status: Acute Plan to address problem: on Heparin and GI prophylaxis 12/18/2020 -CT chest showed cavitary lesion, TB versus neoplasm; ID consulted -Patient is off oxygen and doing well -Blood pressure is still uncontrolled and I added clonidine to his medication regimen, and we will continue to follow -Patient's creatinine 4.3 and GFR is 17, unknown baseline and will put a consult for nephrology -Patient has elevated BNP and troponin level, cardiology consulted -Patient's hemoglobin is 6.7 this morning a unit of packed RBC was ordered. Will monitor posttransfusion H&H. 12/19/2020 --CT chest showed cavitary lesion, TB versus neoplasm; ID consulted and pending evaluation -Patient is off oxygen and doing well -Blood pressure is is controlled after clonidine started -Patient's creatinine 4.3 and GFR is 17, nephrology consulted and will follow recommendation -Patient has elevated BNP and troponin level, cardiology consulted -Posttransfusion hemoglobin is 7.3 12/20/20 -ID was consulted for CT findings but his suspicion is low for TB, nevertheless recommended to do AFB x3 -Nephrology is following -Patient has CHF cardiology is following, on Bumex -Blood pressure is controlled, continue current medication regimen -Morning labs are pending 12/21/2020 -Patient is doing well, ID ordered sputum for AFB 12/22/2020 -Disposition is per ID recommendation, induced sputum is not collected yet 12/23/2020 -Patient was seen and evaluated this morning and patient was alert and oriented. Patient was not on oxygen and he said he is feeling well and wants to go home. I have discussed with infectious disease physician Dr. Hubbard and he said he has low suspicion for TB and cleared him for discharge and will follow him in the office. Patient has CKD and will follow with Dr. Obrien in the office. Patient was hemodynamically stable at the time of discharge. Appropriate medication scripts were given at the time of discharge. Patient's concerns and questions were addressed at the bedside. Disposition: DC-30 STILL A PATIENT Time spent for discharge: 35-minutes - Discharge Diagnoses (1) Acute on chronic heart failure with preserved ejection fraction (HFpEF) Status: Acute (2) Anemia in chronic illness Status: Acute (3) Cavitary lesion of lung Status: Acute (4) Elevated troponin Status: Acute (5) Hypertensive emergency Status: Acute (6) Metabolic acidosis Status: Acute Core Measure Documentation - Palliative Care Palliative Care/ Comfort Measures: Not Applicable - Core Measures Any of the following diagnoses?: none Exam - Physical Exam Narrative exam: Not in cardiopulmonary distress. The patient appeared well nourished and normally developed. Vital signs as documented. Head exam is unremarkable. No scleral icterus . Neck is without jugular venous distension, thyromegaly, or carotid bruits. Lungs are clear to auscultation. Cardiac exam reveals regular rate and Rhythm. Abdominal exam reveals normal bowel sounds, nontender, no organomegaly. Extremities are nonedematous and both femoral and pedal pulses are normal. SU[employer]OR [employer]ARING: Alert and oriented 3. No focal weakness. - Constitutional Vitals: Temp Pulse Resp BP Pulse Ox 98.0 F 71 18 145/65 98 12/23/20 08:46 12/23/20 08:46 12/23/20 08:46 12/23/20 08:46 12/23/20 08:46 Plan Activity: no restrictions Weight Bearing Status: Full Weight Bearing Diet: low salt, renal Follow up with: JAMIL GAYTAN MD [Primary Care Provider] - 3-5 Days LUKASZ HUBBARD MD [Staff Physician] - 7 Days LAURA OBRIEN MD [Staff Physician] - 14 Days Prescriptions: Doxazosin [Cardura] 2 mg PO QPM #30 tablet NIFEdipine XL [Procardia Xl] 60 mg PO QDAY #30 tablet
--- NOTE | 2020-12-23 13:44 | Progress Note ---
Assessment and Plan - Patient Problems (1) Acute on chronic heart failure with preserved ejection fraction (HFpEF) Current Visit: Yes Status: Acute Plan to address problem: rising BUN/Cr noted in the setting of diuresis with bumex, pt in negative fluid balance > 3L since admission. changed bumex to 2mg po qd. check daily weight, strict I/Os (2) Hypertensive chronic kidney disease with stage 1 through stage 4 chronic kidney disease, or unspecified chronic kidney disease Current Visit: Yes Status: Acute Plan to address problem: monitor BP on current meds (3) Chronic kidney disease, stage 4 (severe) Current Visit: Yes Status: Acute Plan to address problem: progressive CKD stage 4, d/t presumed hypertensive nephrosclerosis. pt without acute uremic symptoms, electrolyte imbalance, no indication for renal replacement therapy at present. cont sodium bicarb 650mg bid for treatment of met acidosis. avoid further nephrotoxins, NSAIDs, IV contrast. Stable for discharge from renal stand point otherwise, with outpatient CKD f/u in 1-2 weeks (4) Anemia in chronic illness Current Visit: Yes Status: Acute Plan to address problem: s/p 1 PRBC transfusion. start EPO [id number] q week, hematology follow up as outpatient (5) Metabolic acidosis Current Visit: Yes Status: Acute Plan to address problem: cont sodium bicarb 650mg po bid. Subjective Date of service: 12/23/20 Principal diagnosis: Shortness of breath Interval history: Pt transferred to isolation room to rule out TB. no acute complaints Objective - Vital Signs Vital signs: Vital Signs - 12hr 12/23/20 12/23/20 04:13 08:46 Temperature 98.5 F 98.0 F Pulse Rate 72 71 Respiratory 16 18 Rate Blood Pressure 141/66 145/65 O2 Sat by Pulse 97 98 Oximetry - General Appearance General appearance: well-developed, well-nourished, appears stated age EENT: ATNC, PERRL, mucous membranes moist Neck: no JVD Respiratory: Present: Clear to Ascultation Cardiology: regular, S1S2 Gastrointestinal: normoactive bowel sounds Integumentary: no rash, other (no edema ) Neurologic: no focal deficit, alert and oriented x3, strength 5/5, CN 3-12 intact - Lab 12/21/20 12:52 12/21/20 12:52 Most recent lab results Calcium 7.6 mg/dL (8.4-10.2) L 12/21/20 12:52 Medications & Allergies - Medications Allergies/Adverse Reactions: Allergies lisinopril Allergy (Verified 09/04/20 08:36) Angioedema Home Medications: Home Medications Medication Instructions Recorded Confirmed Last Taken Type AtorvaSTATin [Lipitor] 40 mg PO DAILY #30 06/02/20 12/21/20 Unknown Rx Bumetanide 2 mg PO BID #60 06/02/20 12/21/20 Unknown Rx hydrALAZINE [Apresoline TAB] 100 mg PO TID #90 tab 06/02/20 12/21/20 Unknown Rx metOLazone [Zaroxolyn] 5 mg PO QDAY #30 06/02/20 12/21/20 Unknown Rx Famotidine [Pepcid] 20 mg PO BID #10 tablet 09/04/20 12/21/20 Unknown Rx diphenhydrAMINE [Benadryl CAP] 25 mg PO Q6HR PRN #30 capsule 09/04/20 12/21/20 Unknown Rx Doxazosin [Cardura] 2 mg PO QPM #30 tablet 12/23/20 Unknown Rx NIFEdipine XL [Procardia Xl] 60 mg PO QDAY #30 tablet 12/23/20 Unknown Rx Active Medications: Generic Name Dose Route Start Last Admin Trade Name Freq PRN Reason Stop Dose Admin Acetaminophen 650 mg 12/17/20 15:26 Acetaminophen 325 Mg Tab PO Q4H PRN Pain MILD(1-3)/Fever >100.5/HENDRICKSON Atorvastatin Calcium 40 mg 12/17/20 22:00 12/22/20 22:25 Atorvastatin 40 Mg Tab PO 40 mg QHS NICKO Administration Bumetanide 2 mg 12/23/20 10:00 12/23/20 12:07 Bumetanide 1 Mg Tab PO 2 mg DAILY NICKO Administration Diphenhydramine HCl 25 mg 12/17/20 15:25 Diphenhydramine 25 Mg Cap PO Q6HR PRN Allergy Symptoms Doxazosin Mesylate 2 mg 12/20/20 18:00 12/22/20 17:22 Doxazosin 1 Mg Tab PO 2 mg QPM NICKO Administration Famotidine 10 mg 12/17/20 22:00 12/23/20 12:07 Famotidine 10 Mg Tab PO 10 mg BID NICKO Administration Heparin Sodium (Porcine) 5,000 unit 12/18/20 10:00 12/23/20 12:12 Heparin 5,000 Unit/1 Ml Vial SUB-Q 5,000 unit Q12HR NICKO Administration Hydralazine HCl 100 mg 12/17/20 20:00 12/23/20 08:43 Hydralazine 100 Mg Tab PO 100 mg TID NICKO Administration Hydralazine HCl 10 mg 12/18/20 07:48 Hydralazine 20 Mg/1 Ml Inj IV Q3H PRN Blood Pressure Hydromorphone HCl 0.5 mg 12/17/20 15:26 12/17/20 20:28 Hydromorphone 1 Mg/1 Ml Inj IV 0.5 mg Q3H PRN Administration Pain , Severe (7-10) Metoclopramide HCl 5 mg 12/19/20 10:00 Metoclopramide 10 Mg/2 Ml Inj IV Q6H PRN Nausea And Vomiting Nifedipine 60 mg 12/20/20 14:00 12/23/20 12:08 Nifedipine Xl 60 Mg Tab PO 60 mg QDAY NICKO Administration Ondansetron HCl 4 mg 12/17/20 15:26 Ondansetron 4 Mg/2 Ml Inj IV Q8H PRN Nausea And Vomiting Oxycodone/Acetaminophen 1 tab 12/17/20 15:26 Oxycodone /Acetaminophen 5-325mg Tab PO Q6H PRN Pain, Moderate (4-6) Promethazine HCl 25 mg 12/17/20 15:26 Promethazine 25 Mg Rect Supp [place] Q6H PRN N/V IF NPO AND NO IV ACCESS Sodium Chloride 10 ml 12/17/20 22:00 12/23/20 12:08 Sodium Chloride 0.9% 10 Ml Flush Syringe IV 10 ml BID NICKO Administration Sodium Chloride 10 ml 12/17/20 15:26 12/18/20 08:58 Sodium Chloride 0.9% 10 Ml Flush Syringe IV 10 ml PRN PRN Administration LINE FLUSH
[2020-12-23 15:09] VITALS: BP 166/69
== END 2020-12-23 17:14 | disposition home or self-care (01) | DRG 682 ==
LOC: ED 02:27 → IMCU 04:13 → 4A 12-20 15:09
PROVIDERS: ADMIT Internal Medicine Geriatric Medicine; ATTEND Internal Medicine
DX: N17.9 Acute kidney failure, unspecified (principal); I50.33 Acute on chronic diastolic (congestive) heart failure; I16.1 Hypertensive emergency; J44.1 Chronic obstructive pulmonary disease with (acute) exacerbation; I13.0 Hypertensive heart and chronic kidney disease with heart failure and stage 1 through stage 4 chronic kidney disease, or unspecified chronic kidney disease; N18.4 Chronic kidney disease, stage 4 (severe); Z20.822 Contact with and (suspected) exposure to COVID-19; D64.9 Anemia, unspecified; K21.9 Gastro-esophageal reflux disease without esophagitis; E78.2 Mixed hyperlipidemia; R91.1 Solitary pulmonary nodule; R94.31 Abnormal electrocardiogram [ECG] [EKG]; R79.89 Other specified abnormal findings of blood chemistry; E11.22 Type 2 diabetes mellitus with diabetic chronic kidney disease; Z91.19 Patient's noncompliance with other medical treatment and regimen; Z79.899 Other long term (current) drug therapy; Z79.891 Long term (current) use of opiate analgesic; Z79.01 Long term (current) use of anticoagulants; Z88.8 Allergy status to other drugs, medicaments and biological substances; Z79.4 Long term (current) use of insulin
CPT/HCPCS: 36415; 36430; 71045; 71250; 80048; 80053; 80061; 82164; 82550; 82553; 82728; 82947; 82962; 83036; 83615; 83880; 84145; 84484; 85018; 85025; 85379; 86140; 86850; 86900; 86901; 86920; 87070; 87076; 87186; 87205; 88112; 88312; 93005; 93306; 94644; 96365; 96375; G0378; A9270-GY; J0360; J0456; J0696; J1170; J1644; J1940; J2930; J7040; J7509; P9016; U0003

== ENCOUNTER 2021-03-17 17:10 | Observation (INO) | payer OTHER ==
[2021-03-17] MEDS ORDERED: cloNIDine 0.1 MG TAB PO ONE (20:35)
--- NOTE | 2021-03-17 20:37 | Event Note ---
ED Screening Note ED Screening Note: Patient presents for bilateral lower extremity edema that began 3 days ago He states he is also been having elevated blood pressure He states he has been out of his medication for over a week He is supposed to be taking nifedipine, hydralazine, bumetanide He states he does not currently have a primary care physician due to lack of insurance He denies any shortness of breath, chest pain, headache, vision changes, numbness, weakness, speech disturbance, gait disturbance This initial assessment/diagnostic orders/clinical plan/treatment(s) is/are subject to change based on patients health status, clinical progression and re- assessment by fellow clinical providers in the ED. Further treatment and workup at subsequent clinical providers discretion. Patient/guardian urged not to elope from the ED as their condition may be serious if not clinically assessed and managed. Initial orders include: Labs, EKG, x-ray Clonidine 0.1 mg
[2021-03-17 20:51] LABS: Basophils % (Auto) 0.8 % (0.0-1.8); Eosinophils % (Auto) 0.1 % (0.0-4.3); Hematocrit 25.6 % (35.5-45.6); Hemoglobin 8.7 gm/dl (11.8-15.2); Lymphocytes # (Auto) 1.1 K/mm3 (1.2-5.4); Lymphocytes % (Auto) 18.3 % (13.4-35.0); Mean Corpuscular HGB Conc 34 % (32-34); Mean Corpuscular Volume 90 fl (84-94); Monocytes # (Auto) 0.4 K/mm3 (0.0-0.8); Monocytes % (Auto) 7.3 % (0.0-7.3); Platelet Count 160 K/mm3 (140-440); Red Blood Count 2.84 M/mm3 (3.65-5.03); Red Cell Distribution Width 14.7 % (13.2-15.2)
[2021-03-17 21:34] LABS: Alanine Aminotransferase 44 units/L (7-56); Albumin 3.5 g/dL (3.9-5); Blood Urea Nitrogen 71 mg/dL (9-20); Calcium 8.1 mg/dL (8.4-10.2); Hemolysis Index 5
[2021-03-17 21:35] LABS: BUN/Creatinine Ratio 15
[2021-03-17 21:51] LABS: Chol/HDL Ratio 2.79 %; HDL Cholesterol 69 mg/dL (40-59); LDL Cholesterol,Direct 112 mg/dL (50-130)
[2021-03-17] MEDS ORDERED: hydrALAZINE 20 MG/1 ML INJ IV ONE (22:22)
[2021-03-17] MEDS ORDERED: BUMETANIDE 1 MG/4 ML INJ IV ONE (22:22)
--- NOTE | 2021-03-17 22:22 | Emergency Department Report ---
ED General Adult HPI - General Chief complaint: Extremity Injury, Lower Stated complaint: SWELLING INES LEGS PUI?: No Time Seen by Provider: 03/17/21 20:35 Source: patient Mode of arrival: Stretcher Limitations: No Limitations - History of Present Illness Initial comments: Patient is a 55-year-old male who presents emergency room with complaints of lower extremity swelling. Patient states that he ran out of all of his medicat ions. Patient takes 2 diuretics and multiple blood pressure medications. Patient dates around the medications approximately 7 days ago. Patient states his blood pressure is high. Patient denies chest pain and shortness of breath. Patient denies headache. Patient denies blurry vision. Patient denies any physical complaints except for the lower extremity edema. Patient states that his edema is better when he takes his medications. Patient denies calf pain. Patient denies difficulties walking. Patient states he has history of chronic kidney disease but is not on dialysis. 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 Patient states that he is last GFR was 15. Patient denies dyspnea on exertion. Patient denies recent travel. Patient denies recent international travel. Patient denies exposure to the novel coronavirus. Patient denies sick contacts. Patient denies fever and chills. Patient denies cough. Patient denies diarrhea. Patient denies coming in contact with anybody with symptoms of the novel coronavirus. -: Sudden Location: lower extremity Severity scale (0 -10): 0 Consistency: constant Improves with: medication, rest, other (Elevation) Worsens with: movement, other (Legs below heart.) Associated Symptoms: denies: confusion, chest pain, cough, diaphoresis, fever/chills, headaches, loss of appetite, malaise, nausea/vomiting, rash, seizure, shortness of breath, syncope, weakness Treatments Prior to Arrival: none - Related Data Home Medications Medication Instructions Recorded Confirmed Last Taken Bumetanide 2 mg PO DAILY 03/17/21 03/17/21 Unknown Previous Rx's Medication Instructions Recorded Last Taken Type hydrALAZINE [Apresoline TAB] 100 mg PO TID #90 tab 06/02/20 Unknown Rx metOLazone [Zaroxolyn] 5 mg PO QDAY #30 06/02/20 Unknown Rx Doxazosin [Cardura] 2 mg PO QPM #30 tablet 12/23/20 Unknown Rx NIFEdipine XL [Procardia Xl] 60 mg PO QDAY #30 tablet 12/23/20 Unknown Rx Allergies Allergy/AdvReac Type Severity Reaction Status Date / Time lisinopril Allergy Angioedema Verified 09/04/20 08:36 ED Review of Systems ROS: Stated complaint: SWELLING INES LEGS Other details as noted in HPI Constitutional: denies: chills, fever Eyes: denies: eye pain, eye discharge, vision change ENT: denies: ear pain, throat pain Respiratory: denies: cough, shortness of breath, wheezing Cardiovascular: as per HPI, edema. denies: chest pain, palpitations Endocrine: no symptoms reported Gastrointestinal: denies: abdominal pain, nausea, diarrhea Genitourinary: denies: urgency, dysuria Musculoskeletal: denies: back pain, joint swelling, arthralgia Skin: denies: rash, lesions Neurological: denies: headache, weakness, paresthesias Psychiatric: denies: anxiety, depression Hematological/Lymphatic: denies: easy bleeding, easy bruising ED Past Medical Hx - Past Medical History Previous Medical History?: Yes Hx Hypertension: Yes Hx Heart Attack/AMI: No Hx Congestive Heart Failure: Yes Hx Diabetes: Yes (type 2) Hx Deep Vein Thrombosis: No Hx Liver Disease: No Hx Renal Disease: Yes (cri) Hx Asthma: No Hx COPD: Yes Hx HIV: No - Surgical History Past Surgical History?: Yes Hx Coronary Stent: No Hx Pacemaker: No Hx Internal Defibrillator: No Additional Surgical History: ULCER - Family History Family history: no significant - Social History Smoking Status: Never Smoker Substance Use Type: None - Medications Home Medications: Home Medications Medication Instructions Recorded Confirmed Last Taken Type hydrALAZINE [Apresoline TAB] 100 mg PO TID #90 tab 06/02/20 03/17/21 Unknown Rx metOLazone [Zaroxolyn] 5 mg PO QDAY #30 06/02/20 03/17/21 Unknown Rx Doxazosin [Cardura] 2 mg PO QPM #30 tablet 12/23/20 03/17/21 Unknown Rx NIFEdipine XL [Procardia Xl] 60 mg PO QDAY #30 tablet 12/23/20 03/17/21 Unknown Rx Bumetanide 2 mg PO DAILY 03/17/21 03/17/21 Unknown History ED Physical Exam - General Limitations: No Limitations General appearance: alert, in no apparent distress - Head Head exam: Present: atraumatic, normocephalic - Eye Eye exam: Present: normal appearance - ENT ENT exam: Present: mucous membranes moist - Neck Neck exam: Present: normal inspection - Respiratory Respiratory exam: Present: normal lung sounds bilaterally. Absent: respiratory distress, wheezes, rales, chest wall tenderness - Cardiovascular Cardiovascular Exam: Present: regular rate, normal rhythm. Absent: systolic murmur, diastolic murmur, rubs, gallop - GI/Abdominal GI/Abdominal exam: Present: soft, normal bowel sounds - Rectal Rectal exam: Present: deferred - Extremities Exam Extremities exam: Present: full ROM, normal capillary refill, pedal edema. Absent: tenderness, calf tenderness - Back Exam Back exam: Present: normal inspection - Neurological Exam Neurological exam: Present: alert, oriented X3 - Psychiatric Psychiatric exam: Present: normal affect, normal mood - Skin Skin exam: Present: warm, dry, intact, normal color. Absent: rash ED Course Vital Signs 03/17/21 03/17/21 03/17/21 20:33 20:41 22:16 Pulse Rate 83 81 71 Respiratory 18 19 Rate Blood Pressure 225/127 225/127 208/113 O2 Sat by Pulse 100 100 Oximetry 03/17/21 22:31 Pulse Rate 69 Respiratory Rate Blood Pressure 208/113 O2 Sat by Pulse Oximetry - Reevaluation(s) Reevaluation #1: Patient will be given a milligram of Bumex and 20 of hydralazine. 03/17/21 22:29 Reevaluation #2: Patient blood pressure is improved. I discussed all results with patient. I discussed plan of care with patient. Patient agrees with plan of care and admission. Patient to be admitted to the hospitalist service. 03/17/21 22:58 - Consultations Consultation #1: Hospitalist consulted for admission. Hospitalist to admit patient. 03/17/21 23:03 ED Medical Decision Making - Lab Data Result diagrams: 03/17/21 20:40 03/17/21 20:40 - EKG Data -: EKG Interpreted by Me EKG shows normal: sinus rhythm, axis, intervals, QRS complexes, ST-T waves Rate: normal - EKG Data Interpretation: LVH - Radiology Data Radiology results: report reviewed, image reviewed interpreted by me: Chest x-ray: No pneumonia, no pneumothorax, no foreign body, no osseous findings, CHF changes and pulmonary edema. CHEST 2 VIEWS INDICATION / CLINICAL INFORMATION: BLE edema, HTN urgency. COMPARISON: 12/17/[address] 12/18/2020 FINDINGS: SUPPORT DEVICES: None. HEART / MEDIASTINUM: Stable. LUNGS / PLEURA: The patient's known right upper lobe cavitary lung lesion is not well-visualized on this exam. There is persistent coarsened interstitial lung markings without confluent infiltrate. Central pulmonary vascular congestion is noted. Diffuse bilateral pulmonary o pacities have improved since the prior exam. No pneumothorax. ADDITIONAL FINDINGS: No significant additional findings. IMPRESSION: 1. Patient's previously noted right upper lobe parenchymal density with associated pleural parenchymal scarring has not significantly changed. Please see prior CT dated 12/18/2020 for further details. 2. Findings consistent with congestive heart failure and central pulmonary vascular congestion without interstitial edema. 3. Chronic interstitial lung markings are again noted - Medical Decision Making Patient is a 55-year-old male who presents emergency room with complaints of elevated blood pressure, lower extremity swelling. Patient had labs done which were consistent with acute on chronic renal failure, elevated troponin, elevated BNP, anemia, metabolic acidosis. Patient had a chest x-ray done and it showed CHF changes and pulmonary edema and volume overload. Patient had an EKG which was negative for acute findings. I personally reviewed the EKG and the chest x- ray. Patient found to have hypertensive emergency hypertensive urgency due to noncompliance and elevated blood pressure. Patient was given Bumex and hydralazine and his blood pressure improved. Patient states that he is unable to take Lasix due to his nephrology recommendations. So the patient was given IV Bumex. Patient admitted to the hospital service for further evaluation treatment. Critical care time documented due to the multiple reassessments, prolonged time at the bedside, interpretation of diagnostics and labs. - Differential Diagnosis Volume overload, lower extremity edema, noncompliance, CHF, Critical Care Time: Yes Critical care time in (mins) excluding proc time.: 35 Critical care attestation.: If time is entered above; I have spent that time in minutes in the direct care of this critically ill patient, excluding procedure time. Critical Care Time: 35 minutes ED Disposition Clinical Impression: Hypertensive emergency, Pulmonary edema cardiac cause, Elevated troponin I level, Anemia in chronic illness, Metabolic acidosis, Noncompliance, Elevated troponin CHF exacerbation Qualifiers: Heart failure type: unspecified Qualified Code(s): I50.9 - Heart failure, unspecified Renal failure (ARF), acute on chronic Qualifiers: Acute renal failure type: unspecified Chronic kidney disease stage: unspecified stage Qualified Code(s): N17.9 - Acute kidney failure, unspecified; N18.9 - Chronic kidney disease, unspecified Anemia Qualifiers: Anemia type: unspecified type Qualified Code(s): D64.9 - Anemia, unspecified Volume overload Qualifiers: Hypervolemia type: unspecified Qualified Code(s): E87.70 - Fluid overload, unspecified Disposition: DC-09 OP ADMIT IP TO THIS HOSP Is pt being admited?: Yes Does the pt Need Aspirin: No Condition: Critical Instructions: Hypertension (ED), Pulmonary Edema (ED) Time of Disposition: 23:00
--- NOTE | 2021-03-17 22:40 | XRay Report ---
CHEST 2 VIEWS INDICATION / CLINICAL INFORMATION: BLE edema, HTN urgency. COMPARISON: 12/17/[address] 12/18/2020 FINDINGS: SUPPORT DEVICES: None. HEART / MEDIASTINUM: Stable. LUNGS / PLEURA: The patient's known right upper lobe cavitary lung lesion is not well-visualized on t his exam. There is persistent coarsened interstitial lung markings without confluent infiltrate. Cent ral pulmonary vascular congestion is noted. Diffuse bilateral pulmonary opacities have improved since the prior exam. No pneumothorax. ADDITIONAL FINDINGS: No significant additional findings. IMPRESSION: 1. Patient's previously noted right upper lobe parenchymal density with associated pleural parenchyma l scarring has not significantly changed. Please see prior CT dated 12/18/2020 for further details. 2. Findings consistent with congestive heart failure and central pulmonary vascular congestion withou t interstitial edema. 3. Chronic interstitial lung markings are again noted. Signer Name: Vipul Wilhelm MD Signed: 03/17/2021 10:35 PM Workstation Name: [id number]
[2021-03-17] MEDS ORDERED: NITROGLYCERIN 0.4 MG TAB SUBL SL PRN (23:23)
[2021-03-17] MEDS ORDERED: ACETAMINOPHEN 325 MG TAB PO PRN ×2 (23:23)
[2021-03-17] MEDS ORDERED: MORPHINE 2 MG/1 ML INJ IV PRN (23:23)
[2021-03-17] MEDS ORDERED: ALBUTEROL 2.5 MG/3 ML NEBU IH PRN (23:23)
[2021-03-17] MEDS ORDERED: traMADol 50 MG TAB PO PRN (23:23)
[2021-03-17] MEDS ORDERED: ONDANSETRON 4 MG/2 ML INJ IV PRN (23:23)
--- NOTE | 2021-03-17 23:33 | History and Physical Report ---
History of Present Illness Date of examination: 03/17/21 Date of admission: 03/17/21 23:04 Chief complaint: Bilateral lower extremity swelling History of present illness: 55-year-old male with past medical history of hypertension, CKD not on dialysis, CHF COPD was brought to the emergency room with complaints of lower extremity swelling for the last 7 days. Patient states that he ran out of all of his medications. Patient takes 2 diuretics and multiple blood pressure medications. Patient states his blood pressure is high. Patient denies chest pain and annmarie rtness of breath. Patient denies headache. Patient denies blurry vision. Patient denies any physical complaints except for the lower extremity edema. Patient states that his edema is better when he takes his medications. Patient denies calf pain. Patient denies difficulties walking. Patient states he has history of chronic kidney disease but is not on dialysis. 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 Patient states that he is last GFR was 15. Patient denies dyspnea on exertion. In ER patient is found to have BUN of 71 and creatinine 4.7 GFR 16. Troponin of 0.329 also patient blood pressure is 208/113 Past History Past Medical History: diabetes, heart failure, hypertension, renal failure Medications and Allergies Allergies Allergy/AdvReac Type Severity Reaction Status Date / Time lisinopril Allergy Angioedema Verified 09/04/20 08:36 Home Medications Medication Instructions Recorded Confirmed Last Taken Type hydrALAZINE [Apresoline TAB] 100 mg PO TID #90 tab 06/02/20 03/17/21 Unknown Rx metOLazone [Zaroxolyn] 5 mg PO QDAY #30 06/02/20 03/17/21 Unknown Rx Doxazosin [Cardura] 2 mg PO QPM #30 tablet 12/23/20 03/17/21 Unknown Rx NIFEdipine XL [Procardia Xl] 60 mg PO QDAY #30 tablet 12/23/20 03/17/21 Unknown Rx Bumetanide 2 mg PO DAILY 03/17/21 03/17/21 Unknown History Review of Systems Musculoskeletal: other (Bilateral lower extremity edema) Exam - Constitutional Vitals: Temp Pulse Resp BP Pulse Ox 69 19 208/113 100 03/17/21 22:31 03/17/21 22:16 03/17/21 22:31 03/17/21 22:16 General appearance: Present: no acute distress, well-nourished - EENT Eyes: Present: PERRL ENT: hearing intact, clear oral mucosa - Neck Neck: Present: supple, normal ROM - Respiratory Respiratory effort: normal Respiratory: bilateral: rales - Cardiovascular Heart Sounds: Present: S1 & S2. Absent: rub, click - Extremities Extremities: pulses symmetrical Extremity abnormal: edema Peripheral Pulses: within normal limits - Abdominal General gastrointestinal: Present: soft, non-tender, non-distended, normal bowel sounds Male genitourinary: Present: normal - Integumentary Integumentary: Present: clear, warm, dry - Musculoskeletal Musculoskeletal: gait normal, strength equal bilaterally - Psychiatric Psychiatric: appropriate mood/affect, intact judgment & insight - Neurologic Neurologic: CNII-XII intact, moves all extremities HEART Score - HEART Score Age: 45-65 Risk factors: > 3 risk factors or hx of atherosclerotic disease Troponin: Troponin T 0.329 ng/mL (0.00-0.029) H* 03/17/21 20:40 Troponin: > 3x normal limit Results - Labs CBC & Chem 7: 03/17/21 20:40 03/17/21 20:40 Labs: Laboratory Last Values WBC 5.8 K/mm3 (4.5-11.0) 03/17/21 20:40 RBC 2.84 M/mm3 (3.65-5.03) L 03/17/21 20:40 Hgb 8.7 gm/dl (11.8-15.2) L 03/17/21 20:40 Hct 25.6 % (35.5-45.6) L 03/17/21 20:40 MCV 90 fl (84-94) 03/17/21 20:40 MCH 31 pg (28-32) 03/17/21 20:40 MCHC 34 % (32-34) 03/17/21 20:40 RDW 14.7 % (13.2-15.2) 03/17/21 20:40 Plt Count 160 K/mm3 (140-440) 03/17/21 20:40 Lymph % (Auto) 18.3 % (13.4-35.0) 03/17/21 20:40 Bennett % (Auto) 7.3 % (0.0-7.3) 03/17/21 20:40 Eos % (Auto) 0.1 % (0.0-4.3) 03/17/21 20:40 Baso % (Auto) 0.8 % (0.0-1.8) 03/17/21 20:40 Lymph # (Auto) 1.1 K/mm3 (1.2-5.4) L 03/17/21 20:40 Bennett # (Auto) 0.4 K/mm3 (0.0-0.8) 03/17/21 20:40 Eos # (Auto) 0.0 K/mm3 (0.0-0.4) 03/17/21 20:40 Baso # (Auto) 0.0 K/mm3 (0.0-0.1) 03/17/21 20:40 Seg Neutrophils % 73.5 % (40.0-70.0) H 03/17/21 20:40 Seg Neutrophils # 4.3 K/mm3 (1.8-7.7) 03/17/21 20:40 Sodium 142 mmol/L (137-145) 03/17/21 20:40 Potassium 4.8 mmol/L (3.6-5.0) 03/17/21 20:40 Chloride 109.7 mmol/L (98-107) H 03/17/21 20:40 Carbon Dioxide 17 mmol/L (22-30) L 03/17/21 20:40 Anion Gap 20 mmol/L 03/17/21 20:40 BUN 71 mg/dL (9-20) H 03/17/21 20:40 Creatinine 4.7 mg/dL (0.8-1.3) H 03/17/21 20:40 Estimated GFR 16 ml/min 03/17/21 20:40 BUN/Creatinine Ratio 15 % 03/17/21 20:40 Glucose 129 mg/dL (75-100) H 03/17/21 20:40 Calcium 8.1 mg/dL (8.4-10.2) L 03/17/21 20:40 Total Bilirubin 0.40 mg/dL (0.1-1.2) 03/17/21 20:40 AST 24 units/L (5-40) 03/17/21 20:40 ALT 44 units/L (7-56) 03/17/21 20:40 Alkaline Phosphatase 135 units/L (35-129) H 03/17/21 20:40 Troponin T 0.329 ng/mL (0.00-0.029) H* 03/17/21 20:40 NT-Pro-B Natriuret Pep > 18278 pg/mL (0-900) H 03/17/21 20:40 Total Protein 6.0 g/dL (6.3-8.2) L 03/17/21 20:40 Albumin 3.5 g/dL (3.9-5) L 03/17/21 20:40 Albumin/Globulin Ratio 1.4 % 03/17/21 20:40 Triglycerides 100 mg/dL (2-149) 03/17/21 20:40 Cholesterol 193 mg/dL (50-199) 03/17/21 20:40 LDL Cholesterol Direct 112 mg/dL (50-130) 03/17/21 20:40 HDL Cholesterol 69 mg/dL (40-59) H 03/17/21 20:40 Cholesterol/HDL Ratio 2.79 % 03/17/21 20:40 - Imaging and Cardiology Chest x-ray: image reviewed Assessment and Plan VTE prophylaxis?: Chemical Plan of care discussed with patient/family: Yes - Patient Problems (1) CHF exacerbation Current Visit: Yes Status: Acute Qualifiers: Heart failure type: unspecified Qualified Code(s): I50.9 - Heart failure, unspecified Plan to address problem: Admit the patient to the medical telemetry. Put the patient on CHF pathway. Oxygen via nasal cannula 3 L/min. Lasix 40 mg IV daily. Fluid restriction. Maintain input intake and output. Echocardiogram. Cardiology consult (2) Hypertensive emergency Current Visit: Yes Status: Acute Plan to address problem: . We will put the patient on hydralazine 10 mg IV every 6 hours as needed. Hydralazine 100 mg p.o. 3 times daily. Doxazosin 2 mg p.o. every afternoon. Clonidine 0.1 p.o. x1. Nifedipine XL 60 mg p.o. daily. We will monitor the blood pressure closely. If needed we put on IV drip (3) Elevated troponin I level Current Visit: Yes Status: Acute Plan to address problem: Aspirin 325 mg p.o. daily. Nitroglycerin as needed. Lipitor 40 mg p.o. daily. We will do the serial cardiac enzyme. Echocardiogram. Cardiology consult (4) Metabolic acidosis Current Visit: Yes Status: Acute Plan to address problem: Most likely is because of CKD. We will hold the IV fluid because of CHF. Will consult nephrology for further evaluation and treatment (5) Renal failure (ARF), acute on chronic Current Visit: Yes Status: Acute Qualifiers: Acute renal failure type: unspecified Chronic kidney disease stage: unspecified stage Qualified Code(s): N17.9 - Acute kidney failure, unspecified; N18.9 - Chronic kidney disease, unspecified Plan to address problem: Will avoid nephrotoxic drug. We will hold the IV fluid because of CHF, will dose the medication as for creatinine clearance. Will consult nephrology for further evaluation and treatment. Repeat BMP in the morning (6) Anemia in chronic illness Current Visit: Yes Status: Acute Plan to address problem: Patient hemoglobin is 8.7 hematocrit 25.6 most likely from chronic kidney disease. We will recheck CBC in the morning (7) DVT prophylaxis Current Visit: No Status: Acute Plan to address problem: Heparin 5000 units subcu every 8 hours for DVT prophylaxis. Pepcid 20 mg p.o. twice daily for GI prophylaxis. Patient is a full code
[2021-03-17] MEDS ORDERED: hydrALAZINE 20 MG/1 ML INJ IV PRN (23:51)
[2021-03-18] MEDS: IPRATROPIUM/ALBUTEROL SULFATE 3 ML AMPUL.NEB IH SCH ×4 (01:33→20:46)
[2021-03-18 06:00] LABS: Basophils % (Auto) 0.6 % (0.0-1.8); Eosinophils % (Auto) 0.1 % (0.0-4.3); Hemoglobin 6.9 gm/dl (11.8-15.2); Lymphocytes # (Auto) 0.9 K/mm3 (1.2-5.4); Mean Corpuscular HGB Conc 35 % (32-34); Mean Corpuscular Volume 88 fl (84-94); Monocytes # (Auto) 0.4 K/mm3 (0.0-0.8); Monocytes % (Auto) 9.2 % (0.0-7.3); Platelet Count 145 K/mm3 (140-440); Red Blood Count 2.27 M/mm3 (3.65-5.03); Red Cell Distribution Width 14.4 % (13.2-15.2)
[2021-03-18 06:11] LABS: Calcium 7.8 mg/dL (8.4-10.2)
[2021-03-18] MEDS: HEPARIN 5,000 UNIT/1 ML VIAL SUB-Q SCH ×3 (06:50→21:05)
[2021-03-18] MEDS ORDERED: SODIUM CHLORIDE 0.9% 500 ML 500 ML IV NR (07:44)
[2021-03-18] MEDS: hydrALAZINE 100 MG TAB PO SCH ×3 (08:57→19:31)
[2021-03-18] MEDS ORDERED: FUROSEMIDE 40 MG/4 ML INJ IV SCH (10:00)
[2021-03-18] MEDS ORDERED: FAMOTIDINE 20 MG TAB PO SCH (10:00)
[2021-03-18] MEDS: FAMOTIDINE 10 MG TAB PO SCH ×2 (10:06→21:05)
[2021-03-18] MEDS: ASPIRIN EC 325 MG TAB PO SCH (10:07)
[2021-03-18] MEDS: NIFEdipine XL 60 MG TAB PO SCH (10:07)
--- NOTE | 2021-03-18 10:51 | Electrocardiograph Report ---
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
--- NOTE | 2021-03-18 10:53 | Electrocardiograph Report ---
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
--- NOTE | 2021-03-18 13:33 | Progress Note ---
Subjective Date of service: 03/18/21 Interval history: HPI 5-year-old male with past medical history of hypertension, CKD not on dialysis, CHF COPD was brought to the emergency room with complaints of lower extremity swelling for the last 7 days. Patient states that he ran out of all of his medications. Patient takes 2 diuretics and multiple blood pressure medications. Patient states his blood pressure is high. Patient denies chest pain and shortness of breath. Patient denies headache. Patient denies blurry vision. Patient denies any physical complaints except for the lower extremity edema. Patient states that his edema is better when he takes his medications. Patient denies calf pain. Patient denies difficulties walking. Patient states he has history of chronic kidney disease but is not on dialysis. Patient states that his supervisor phosphoric acid is trying to stimulate his kidney function to avoid dialysis. Patient states that he is last GFR was 15. Patient denies dyspnea on exertion. In ER patient is found to have BUN of 71 and creatinine 4.7 GFR 16. Troponin of 0.329 also patient blood pressure is 208/113 \ 03/18 patient is alert and oriented. Sitting up in a chair. No apparent distress and he offers no specific complaints except worsening of his leg edema He denies any chest pain or shortness of breath. Lab results reviewed. Assessment and plan CHF versus volume overload Patient denies any chest pain or shortness of breath Cardiology consulted Continue IV diuretics\ Patient states that he feels better today Hypertensive emergency Improving Continue present medications Elevated troponin-troponin levels trending down NSTEMI type II-secondary to chronic kidney disease Patient denies any chest pain or shortness of breath Cardiology consulted Evaluation pending Acute on chronic kidney disease stage IV-V Serum creatinine in May of last year was 3.67 nephrology consulted Avoid nephrotoxins Monitor renal function Metabolic acidosis Secondary to CKD Normocytic anemia-suspect anemia of chronic kidney disease Hemoglobin dropped this morning to 6.9 from 8.7 yesterday Patient admits to chronic anemia and history of blood transfusions He states that blood transfusion 2 weeks ago at [facility] He denies any melena or NSAIDs He states he had a EGD and colonoscopy in [place] in 2019 We will discontinue IV fluids 1 unit of PRBC was ordered Objective - Constitutional Vitals: Vital Signs - 12hr 03/18/21 03/18/21 03/18/21 01:33 01:40 01:45 Temperature Pulse Rate 77 Pulse Rate [ 73 Bilateral] Pulse Rate [ 78 Throughout] Respiratory Rate Respiratory 18 Rate [Bilateral ] Respiratory 18 Rate [ Throughout] Blood Pressure 188/98 Blood Pressure [Left] O2 Sat by Pulse 99 Oximetry 03/18/21 03/18/21 03/18/21 05:37 07:31 08:00 Temperature 98.6 F Pulse Rate 78 79 Pulse Rate [ 83 Bilateral] Pulse Rate [ 83 Throughout] Respiratory 18 Rate Respiratory 19 Rate [Bilateral ] Respiratory 18 Rate [ Throughout] Blood Pressure 153/73 Blood Pressure [Left] O2 Sat by Pulse 96 96 Oximetry 03/18/21 03/18/21 03/18/21 08:03 08:22 13:14 Temperature 99.4 F Pulse Rate 80 82 Pulse Rate [ Bilateral] Pulse Rate [ Throughout] Respiratory 18 Rate Respiratory Rate [Bilateral ] Respiratory Rate [ Throughout] Blood Pressure 166/79 Blood Pressure 164/78 [Left] O2 Sat by Pulse 98 96 98 Oximetry 03/18/21 13:23 Temperature 98.6 F Pulse Rate Pulse Rate [ Bilateral] Pulse Rate [ Throughout] Respiratory Rate Respiratory Rate [Bilateral ] Respiratory Rate [ Throughout] Blood Pressure Blood Pressure [Left] O2 Sat by Pulse Oximetry General appearance: Present: no acute distress, well-nourished - EENT Eyes: PERRL, EOM intact ENT: hearing intact, clear oral mucosa - Neck Neck: supple, normal ROM, no masses or JVD - Respiratory Respiratory effort: normal Respiratory: bilateral: CTA, diminished - Cardiovascular Rhythm: regular Heart Sounds: Present: S1 & S2 Extremity abnormal: other (Bilateral 2-3+ pitting edema of the lower extremities) - Gastrointestinal General gastrointestinal: Present: soft, non-tender Rectal Exam: deferred - Genitourinary Male genitourinary: deferred - Integumentary Integumentary: clear - Musculoskeletal Musculoskeletal: strength equal bilaterally - Neurologic Neurologic: moves all extremities - Psychiatric Psychiatric: appropriate mood/affect - Labs CBC & Chem 7: 03/18/21 05:07 03/18/21 05:07 Labs: Abnormal lab results 03/17/21 03/17/21 03/18/21 Range/Units 20:40 20:40 05:07 RBC 2.84 L 2.27 L (3.65-5.03) M/mm3 Hgb 8.7 L 6.9 L (11.8-15.2) gm/dl Hct 25.6 L 20.0 L (35.5-45.6) % MCHC 35 H (32-34) % [place] % (Auto) 9.2 H (0.0-7.3) % Lymph # (Auto) 1.1 L 0.9 L (1.2-5.4) K/mm3 Seg Neutrophils % 73.5 H 71.1 H (40.0-70.0) % Chloride 109.7 H (98-107) mmol/L Carbon Dioxide 17 L (22-30) mmol/L BUN 71 H (9-20) mg/dL Creatinine 4.7 H (0.8-1.3) mg/dL Glucose 129 H (75-100) mg/dL Calcium 8.1 L (8.4-10.2) mg/dL Alkaline Phosphatase 135 H (35-129) units/L Troponin T 0.329 H* (0.00-0.029) ng/mL NT-Pro-B Natriuret Pep > 33586 H (0-900) pg/mL Total Protein 6.0 L (6.3-8.2) g/dL Albumin 3.5 L (3.9-5) g/dL HDL Cholesterol 69 H (40-59) mg/dL 03/18/21 03/18/21 Range/Units 05:07 05:07 RBC (3.65-5.03) M/mm3 Hgb (11.8-15.2) gm/dl Hct (35.5-45.6) % MCHC (32-34) % [place] % (Auto) (0.0-7.3) % Lymph # (Auto) (1.2-5.4) K/mm3 Seg Neutrophils % (40.0-70.0) % Chloride 111.4 H (98-107) mmol/L Carbon Dioxide 18 L (22-30) mmol/L BUN 68 H (9-20) mg/dL Creatinine 4.5 H (0.8-1.3) mg/dL Glucose 126 H (75-100) mg/dL Calcium 7.8 L (8.4-10.2) mg/dL Alkaline Phosphatase (35-129) units/L Troponin T 0.266 H* (0.00-0.029) ng/mL NT-Pro-B Natriuret Pep (0-900) pg/mL Total Protein (6.3-8.2) g/dL Albumin (3.9-5) g/dL HDL Cholesterol (40-59) mg/dL HEART Score - HEART Score Age: 45-65 Risk factors: > 3 risk factors or hx of atherosclerotic disease Troponin: Troponin T 0.266 ng/mL (0.00-0.029) H* 03/18/21 05:07 Troponin: > 3x normal limit
--- NOTE | 2021-03-18 13:52 | Event Note ---
Date: 03/18/[address] Villafana as his adjuster arbitrator. Discussed w/ Dr. Villafana - states patient follows with him in the office. Will reassign consult.
--- NOTE | 2021-03-18 14:02 | Consultation ---
History of Present Illness - Reason for Consult Consult date: 03/18/21 chronic renal failure Requesting physician: OMAR SOW - History of Present Illness This is a 55 yo M with past medical history of hypertension, HFpEF, COPD, anemia of chronic illness, CKD stage 4 well known to me from outpatient f/u, with multiple hospitalization in the recent past for fluid overload, anemia requiring blood transfusion, in the setting of advanced CKD, not yet requiring hemo dialysis, who presents to [facility] after presenting with worsening b/l LE, shortness of breath, dyspnea on exertion. Patient was found to have pitting edema of b/l LE, CXR showed evidence of pulmonary vascular congestion, labs showed elevated BUN/Cr at 71/4.7mg/dl along with metabolic acidosis, pt was also found to be anemia with Hb at 6.9 requiring blood transfusion. Pt states that he ran out of meds incl his diuretics (last office visit we maintained him on bumex 2mg po bid along with metolazone 5mg po qd). Pt is currently uninsured and had difficulty to see pig sticker for IV iron and JEAN-CLAUDE treatment. Patient otherwise denies sick contacts. Patient denies fever and chills. Patient denies cough. Patient denies diarrhea. Renal consult is requested for management of fluid overload in the setting of advanced CKD. Past History Past Medical History: diabetes, heart failure, hypertension, renal failure Social history: denies: smoking, alcohol abuse, prescription drug abuse, IV drug use Family history: hypertension Medications and Allergies Allergies Allergy/AdvReac Type Severity Reaction Status Date / Time lisinopril Allergy Angioedema Verified 09/04/20 08:36 Home Medications Medication Instructions Recorded Confirmed Last Taken Type hydrALAZINE [Apresoline TAB] 100 mg PO TID #90 tab 06/02/20 03/17/21 Unknown Rx metOLazone [Zaroxolyn] 5 mg PO QDAY #30 06/02/20 03/17/21 Unknown Rx Doxazosin [Cardura] 2 mg PO QPM #30 tablet 12/23/20 03/17/21 Unknown Rx NIFEdipine XL [Procardia Xl] 60 mg PO QDAY #30 tablet 12/23/20 03/17/21 Unknown Rx Bumetanide 2 mg PO DAILY 03/17/21 03/17/21 Unknown History Active Meds: Active Medications Acetaminophen (Acetaminophen 325 Mg Tab) 650 mg PO Q4H PRN PRN Reason: Pain MILD(1-3)/Fever >100.5/[place]DR[place] Albuterol (Albuterol 2.5 Mg/3 Ml Nebu) 2.5 mg IH Q4HRT PRN PRN Reason: Shortness Of Breath Albuterol/Ipratropium (Ipratropium/Albuterol Sulfate 3 Ml Ampul.Neb) 1 ampul IH Q6HRT [facility] Last Admin: 03/18/21 13:00 Dose: 1 ampul Documented by: Aspirin (Aspirin Ec 325 Mg Tab) 325 mg PO QDAY [facility] Last Admin: 03/18/21 10:07 Dose: 325 mg Documented by: Atorvastatin Calcium (Atorvastatin 40 Mg Tab) 40 mg PO QHS [facility] Doxazosin Mesylate (Doxazosin 1 Mg Tab) 2 mg PO QPM [facility] Famotidine (Famotidine 10 Mg Tab) 10 mg PO BID [facility] Last Admin: 03/18/21 10:06 Dose: 10 mg Documented by: Furosemide (Furosemide 40 Mg/4 Ml Inj) 40 mg IV BID [facility] Heparin Sodium (Porcine) (Heparin 5,000 Unit/1 Ml Vial) 5,000 unit SUB-Q Q8HR [facility] Last Admin: 03/18/21 13:26 Dose: Not Given Documented by: Hydralazine HCl (Hydralazine 100 Mg Tab) 100 mg PO TID [facility] Last Admin: 03/18/21 13:26 Dose: 100 mg Documented by: Hydralazine HCl (Hydralazine 20 Mg/1 Ml Inj) 10 mg IV Q6H PRN PRN Reason: SBP >/=160; DBP >/=95 Last Admin: 03/18/21 01:33 Dose: 10 mg Documented by: Sodium Chloride (Nacl 0.9% 500 Ml) 500 mls @ 0 mls/hr IV ONCE NR Stop: 03/18/21 20:00 Morphine Sulfate (Morphine 2 Mg/1 Ml Inj) 2 mg IV Q5MIN PRN PRN Reason: Chest Pain unrelieved by NTG Nifedipine (Nifedipine Xl 60 Mg Tab) 60 mg PO QDAY [facility] Last Admin: 03/18/21 10:07 Dose: 60 mg Documented by: Nitroglycerin (Nitroglycerin 0.4 Mg Tab Subl) 0.4 mg SL .Q5MIN PRN PRN Reason: Chest Pain Ondansetron HCl (Ondansetron 4 Mg/2 Ml Inj) 4 mg IV Q8H PRN PRN Reason: Nausea And Vomiting Sodium Chloride (Sodium Chloride 0.9% 10 Ml Flush Syringe) 10 ml IV BID [facility] Last Admin: 03/18/21 10:07 Dose: 10 ml Documented by: Sodium Chloride (Sodium Chloride 0.9% 10 Ml Flush Syringe) 10 ml IV PRN PRN PRN Reason: LINE FLUSH Tramadol HCl (Tramadol 50 Mg Tab) 50 mg PO Q6H PRN PRN Reason: Pain, Moderate (4-6) Review of Systems All systems: negative Constitutional: weight gain, fatigue, weakness, malaise Cardiovascular: edema, shortness of breath, dyspnea on exertion Exam - Vital Signs Vital signs: Vital Signs Pulse Resp BP Pulse Ox 83 18 225/127 100 03/17/21 20:33 03/17/21 20:33 03/17/21 20:33 03/17/21 20:33 - General Appearance General appearance: well-developed, well-nourished, appears stated age EENT: ATNC, PERRL, mucous membranes moist Neck: Present: neck supple Respiratory: Decreased Breath Sounds Heart: regular, S1S2 Gastrointestinal: Present: normoactive bowel sounds Integumentary: no rash, other (++ b/l LE edema ) Neurologic: no focal deficit, alert and oriented x3, strength 5/5, CN 3-12 intact Psychiatric: mood/affect appropriate, cooperative Results - Lab Results 03/18/21 05:07 03/18/21 05:07 Most recent lab results Calcium 7.8 mg/dL (8.4-10.2) L 03/18/21 05:07 Assessment and Plan - Patient Problems (1) Chronic kidney disease, stage 4 (severe) Current Visit: No Status: Acute Plan to address problem: progressive CKD stage 4, d/t presumed hypertensive nephrosclerosis. pt without acute uremic symptoms, electrolyte imbalance, no indication for urgent renal replacement therapy at present. Volume control wiht IV lasix 40mg bid along with metolazone 5mg po qd. cont sodium bicarb 650mg bid for treatment of met acid osis. avoid further nephrotoxins, NSAIDs, IV contrast. Upon discharge pt should be placed on bumex 2mg po bid along with metolazone 5mg po qd. discussed with patient regarding Na/fluid restriction to 36oz/day along with importance of medication compliance to avoid recurrent hospitalizations. Pt states that he has medical coverage in [place] and is thinking about moving back to [place] temporarily for preparation of future HD. (2) Volume overload Current Visit: Yes Status: Acute Qualifiers: Hypervolemia type: unspecified Qualified Code(s): E87.70 - Fluid overload, unspecified Plan to address problem: diuresis with IV lasix and po metoalzone to target net negative fluid balance > 1L/day (3) Pulmonary edema Current Visit: Yes Status: Acute Plan to address problem: diuretic treatment as above (4) Acute on chronic heart failure with preserved ejection fraction (HFpEF) Current Visit: No Status: Acute Plan to address problem: Na/fluid restriction reinforced, volume control with IV lasix/po metolazone. check daily weight, strict I/Os (5) Anemia in chronic illness Current Visit: Yes Status: Acute Plan to address problem: Transfuse with 1PRBC to target Hb > 7., ordered EPO [id number] sc x 1 dose (6) Hypertensive chronic kidney disease with stage 1 through stage 4 chronic kidney disease, or unspecified chronic kidney disease Current Visit: No Status: Acute Plan to address problem: monitor BP on current meds (7) Acidosis Current Visit: Yes Status: Acute Plan to address problem: cont sodium bicarb 650mg po bid.
[2021-03-18] MEDS ORDERED: EPOETIN ALFA-EPBX 10,000 UNIT/1 ML VIAL SUB-Q ONE (15:18)
--- NOTE | 2021-03-18 16:58 | Consultation ---
History of Present Illness Consult date: 03/18/21 Consult reason: congestive heart failure, shortness of breath, other (Edema) History of present illness: The patient is a 55-year-old man with multiple medical problems including chronic kidney disease, chronic severe poorly controlled hypertension and chronic anemia. He presented to this hospital with shortness of breath, fatigu e, and bilateral lower extremity edema. He admits to noncompliance with his medications states that he ran out of medication several days ago. On this presentation, he was markedly hypertensive with a systolic blood pressure of 225. Laboratory abnormalities show a hematocrit of 20, severe kidney disease with a creatinine of 4.7, and a troponin mildly elevated at 0.32. EKG is a normal sinus rhythm, left ventricle hypertrophy with some QRS widening and nonspecific repolarization abnormalities of LVH. Chest x-ray shows some mild cardiomegaly with hyperlucent lung carr suggestive of COPD. There is no interstitial edema or heart failure. The patient's cardiac history dates back to 2 years ago when he lived in [place]. He states that he underwent a cardiac catheterization in 2019 at [facility] that reported no significant coronary artery disease. More recently, 2 months ago in the hospital he underwent an echocardiogram that showed left ventricular systolic ejection fraction mildly reduced at 40 to 45%, but with moderate to severe concentric left ventricle hypertrophy. He was also hospitalized at [facility] 2 weeks ago, with similar symptoms as this current presentation. We do not have any records from that visit to determine details of any cardiac work-up. Past History Past Medical History: diabetes, heart failure, hypertension, renal failure Social history: denies: smoking, alcohol abuse, prescription drug abuse, IV drug use Family history: hypertension Medications and Allergies Allergies Allergy/AdvReac Type Severity Reaction Status Date / Time lisinopril Allergy Angioedema Verified 09/04/20 08:36 Home Medications Medication Instructions Recorded Confirmed Last Taken Type hydrALAZINE [Apresoline TAB] 100 mg PO TID #90 tab 06/02/20 03/17/21 Unknown Rx metOLazone [Zaroxolyn] 5 mg PO QDAY #30 06/02/20 03/17/21 Unknown Rx Doxazosin [Cardura] 2 mg PO QPM #30 tablet 12/23/20 03/17/21 Unknown Rx NIFEdipine XL [Procardia Xl] 60 mg PO QDAY #30 tablet 12/23/20 03/17/21 Unknown Rx Bumetanide 2 mg PO DAILY 03/17/21 03/17/21 Unknown History Active Meds: Active Medications Acetaminophen (Acetaminophen 325 Mg Tab) 650 mg PO Q4H PRN PRN Reason: Pain MILD(1-3)/Fever >100.5/[place] Albuterol (Albuterol 2.5 Mg/3 Ml Nebu) 2.5 mg IH Q4HRT PRN PRN Reason: Shortness Of Breath Albuterol/Ipratropium (Ipratropium/Albuterol Sulfate 3 Ml Ampul.Neb) 1 ampul IH Q6HRT [facility] Last Admin: 03/18/21 13:00 Dose: 1 ampul Documented by: Aspirin (Aspirin Ec 325 Mg Tab) 325 mg PO QDAY [facility] Last Admin: 03/18/21 10:07 Dose: 325 mg Documented by: Atorvastatin Calcium (Atorvastatin 40 Mg Tab) 40 mg PO QHS [facility] Doxazosin Mesylate (Doxazosin 1 Mg Tab) 2 mg PO QPM [facility] Famotidine (Famotidine 10 Mg Tab) 10 mg PO BID [facility] Last Admin: 03/18/21 10:06 Dose: 10 mg Documented by: Furosemide (Furosemide 40 Mg/4 Ml Inj) 40 mg IV BID [facility] Heparin Sodium (Porcine) (Heparin 5,000 Unit/1 Ml Vial) 5,000 unit SUB-Q Q8HR [facility] Last Admin: 03/18/21 13:26 Dose: Not Given Documented by: Hydralazine HCl (Hydralazine 100 Mg Tab) 100 mg PO TID [facility] Last Admin: 03/18/21 13:26 Dose: 100 mg Documented by: Hydralazine HCl (Hydralazine 20 Mg/1 Ml Inj) 10 mg IV Q6H PRN PRN Reason: SBP >/=160; DBP >/=95 Last Admin: 03/18/21 01:33 Dose: 10 mg Documented by: Sodium Chloride (Nacl 0.9% 500 Ml) 500 mls @ 0 mls/hr IV ONCE NR Stop: 03/18/21 20:00 Metolazone (Metolazone 5 Mg Tab) 5 mg PO QDAY [facility] Morphine Sulfate (Morphine 2 Mg/1 Ml Inj) 2 mg IV Q5MIN PRN PRN Reason: Chest Pain unrelieved by NTG Nifedipine (Nifedipine Xl 60 Mg Tab) 60 mg PO QDAY [facility] Last Admin: 03/18/21 10:07 Dose: 60 mg Documented by: Nitroglycerin (Nitroglycerin 0.4 Mg Tab Subl) 0.4 mg SL .Q5MIN PRN PRN Reason: Chest Pain Ondansetron HCl (Ondansetron 4 Mg/2 Ml Inj) 4 mg IV Q8H PRN PRN Reason: Nausea And Vomiting Sodium Bicarbonate (Sodium Bicarbonate 650 Mg Tab) 650 mg PO BID [facility] Sodium Chloride (Sodium Chloride 0.9% 10 Ml Flush Syringe) 10 ml IV BID [facility] Last Admin: 03/18/21 10:07 Dose: 10 ml Documented by: Sodium Chloride (Sodium Chloride 0.9% 10 Ml Flush Syringe) 10 ml IV PRN PRN PRN Reason: LINE FLUSH Tramadol HCl (Tramadol 50 Mg Tab) 50 mg PO Q6H PRN PRN Reason: Pain, Moderate (4-6) Review of Systems Cardiovascular: edema, shortness of breath, no chest pain, no orthopnea, no palpitations, no rapid/irregular heart beat, no syncope, no lightheadedness Physical Examination Vital Signs Pulse Resp BP Pulse Ox 83 18 225/127 100 03/17/21 20:33 03/17/21 20:33 03/17/21 20:33 03/17/21 20:33 General appearance: no acute distress HEENT: Positive: PERRL Neck: Positive: neck supple Cardiac: Positive: Reg Rate and Rhythm Lungs: Positive: Decreased Breath Sounds Neuro: Positive: Grossly Intact Abdomen: Positive: Soft Male genitourinary: Positive: deferred Skin: Positive: Clear Extremities: Present: +1 Edema Results 03/18/21 05:07 03/18/21 05:07 Cardiac Enzymes 03/17/21 Range/Units 20:40 AST 24 (5-40) units/L Lipids 03/17/21 Range/Units 20:40 Triglycerides 100 (2-149) mg/dL Cholesterol 193 (50-199) mg/dL HDL Cholesterol 69 H (40-59) mg/dL Cholesterol/HDL Ratio 2.79 % CBC 03/17/21 03/18/21 Range/Units 20:40 05:07 WBC 5.8 4.8 (4.5-11.0) K/mm3 RBC 2.84 L 2.27 L (3.65-5.03) M/mm3 Hgb 8.7 L 6.9 L (11.8-15.2) gm/dl Hct 25.6 L 20.0 L (35.5-45.6) % Plt Count 160 145 (140-440) K/mm3 Lymph # (Auto) 1.1 L 0.9 L (1.2-5.4) K/mm3 [place] # (Auto) 0.4 0.4 (0.0-0.8) K/mm3 Eos # (Auto) 0.0 0.0 (0.0-0.4) K/mm3 Baso # (Auto) 0.0 0.0 (0.0-0.1) K/mm3 Comprehensive Metabolic Panel 03/17/21 03/18/21 Range/Units 20:40 05:07 Sodium 142 142 (137-145) mmol/L Potassium 4.8 4.3 (3.6-5.0) mmol/L Chloride 109.7 H 111.4 H (98-107) mmol/L Carbon Dioxide 17 L 18 L (22-30) mmol/L BUN 71 H 68 H (9-20) mg/dL Creatinine 4.7 H 4.5 H (0.8-1.3) mg/dL Glucose 129 H 126 H (75-100) mg/dL Calcium 8.1 L 7.8 L (8.4-10.2) mg/dL AST 24 (5-40) units/L ALT 44 (7-56) units/L Alkaline Phosphatase 135 H (35-129) units/L Total Protein 6.0 L (6.3-8.2) g/dL Albumin 3.5 L (3.9-5) g/dL EKG interpretations - Telemetry EKG Rhythm: Sinus Rhythm Assessment and Plan - Patient Problems (1) Volume overload Current Visit: Yes Status: Acute Plan to address problem: Patient has volume overload in the setting of severe uncontrolled hypertension and severe chronic kidney disease. Continue medical therapy for blood pressure control, and follow-up management of kidney failure by center sales and service associate is in progress. Conservative cardiac approach with medical therapy as outlined, tailored to underlying mild systolic left ventricular dysfunction.
[2021-03-18] MEDS ORDERED: DOXAZOSIN 1 MG TAB PO SCH (18:00)
[2021-03-18] MEDS: metOLazone 5 MG TAB PO SCH (18:34)
[2021-03-18] MEDS: FUROSEMIDE 40 MG/4 ML INJ IV SCH (21:05)
[2021-03-18] MEDS: SODIUM BICARBONATE 650 MG TAB PO SCH (21:05)
[2021-03-19 05:03] LABS: Hemoglobin 7.5 gm/dl (11.8-15.2); Mean Corpuscular HGB Conc 34 % (32-34); Mean Corpuscular Volume 90 fl (84-94); Platelet Count 138 K/mm3 (140-440); Red Blood Count 2.45 M/mm3 (3.65-5.03); Red Cell Distribution Width 14.9 % (13.2-15.2)
[2021-03-19] MEDS: HEPARIN 5,000 UNIT/1 ML VIAL SUB-Q SCH (05:22)
[2021-03-19 05:23] LABS: Calcium 7.9 mg/dL (8.4-10.2)
--- NOTE | 2021-03-19 10:23 | Progress Note ---
Assessment and Plan - Patient Problems (1) Chronic kidney disease, stage 4 (severe) Current Visit: No Status: Acute Plan to address problem: progressive CKD stage 4, d/t presumed hypertensive nephrosclerosis. pt without acute uremic symptoms, electrolyte imbalance, no indication for urgent renal replacement therapy at present. Volume status improved with IV lasix 40mg bid along with metolazone 5mg po qd. cont sodium bicarb 650mg bid for treatment of met acidosis. avoid further nephrotoxins, NSAIDs, IV contrast. Upon discharge pt should be placed on bumex 2mg po bid along with metolazone 5mg po qd. discussed with patient regarding Na/fluid restriction to 36oz/day along with importance of medication compliance to avoid recurrent hospitalizations. Pt states that he has medical coverage in [place] and is thinking about moving back to [place] temporarily for preparation of future HD. Stable for discharge from renal stand point with outpatient f/u in 1-2 weeks (2) Volume overload Current Visit: Yes Status: Acute Qualifiers: Hypervolemia type: unspecified Qualified Code(s): E87.70 - Fluid overload, unspecified Plan to address problem: diuresis with IV lasix and po metoalzone to target net negative fluid balance > 1L/day (3) Pulmonary edema Current Visit: Yes Status: Acute Plan to address problem: diuretic treatment as above (4) Acute on chronic heart failure with preserved ejection fraction (HFpEF) Current Visit: No Status: Acute Plan to address problem: Na/fluid restriction reinforced, volume control with IV lasix/po metolazone. check daily weight, strict I/Os (5) Anemia in chronic illness Current Visit: Yes Status: Acute Plan to address problem: Transfuse with 1PRBC to target Hb > 7., given EPO [id number] sc x 1 dose (6) Hypertensive chronic kidney disease with stage 1 through stage 4 chronic kidney disease, or unspecified chronic kidney disease Current Visit: No Status: Acute Plan to address problem: monitor BP on current meds (7) Acidosis Current Visit: Yes Status: Acute Plan to address problem: cont sodium bicarb 650mg po bid. Subjective Date of service: 03/19/21 Principal diagnosis: Ortiz on CKD Interval history: Pt awake, alert, reports improving b/l LE edema, denies SOB, CP, fever, chills, n/v/d Objective - Vital Signs Vital signs: Vital Signs - 12hr 03/19/21 03/19/21 03/19/21 00:30 01:23 04:45 Temperature 97.6 F 97.6 F Pulse Rate 84 77 Respiratory 20 18 Rate Blood Pressure 171/83 158/71 O2 Sat by Pulse 97 97 97 Oximetry 03/19/21 08:53 Temperature 97.8 F Pulse Rate 79 Respiratory 18 Rate Blood Pressure 160/75 O2 Sat by Pulse 96 Oximetry - General Appearance General appearance: well-developed, well-nourished, appears stated age EENT: ATNC, PERRL, mucous membranes moist Neck: no JVD Respiratory: Present: Clear to Ascultation Cardiology: regular, S1S2 Gastrointestinal: normoactive bowel sounds Integumentary: no rash, other (+ edema ) Neurologic: no focal deficit, alert and oriented x3, strength 5/5, CN 3-12 intact Psychiatric: mood/affect appropriate, cooperative - Lab 03/19/21 04:34 03/19/21 04:34 Most recent lab results Calcium 7.9 mg/dL (8.4-10.2) L 03/19/21 04:34 Medications & Allergies - Medications Allergies/Adverse Reactions: Allergies lisinopril Allergy (Verified 09/04/20 08:36) Angioedema Home Medications: Home Medications Medication Instructions Recorded Confirmed Last Taken Type hydrALAZINE [Apresoline TAB] 100 mg PO TID #90 tab 06/02/20 03/17/21 Unknown Rx metOLazone [Zaroxolyn] 5 mg PO QDAY #30 06/02/20 03/17/21 Unknown Rx Doxazosin [Cardura] 2 mg PO QPM #30 tablet 12/23/20 03/17/21 Unknown Rx NIFEdipine XL [Procardia Xl] 60 mg PO QDAY #30 tablet 12/23/20 03/17/21 Unknown Rx Bumetanide 2 mg PO DAILY 03/17/21 03/17/21 Unknown History Active Medications: Generic Name Dose Route Start Last Admin Trade Name Freq PRN Reason Stop Dose Admin Acetaminophen 650 mg 03/17/21 23:23 Acetaminophen 325 Mg Tab PO Q4H PRN Pain MILD(1-3)/Fever >100.5/HENDRICKSON Albuterol 2.5 mg 03/17/21 23:23 Albuterol 2.5 Mg/3 Ml Nebu IH Q4HRT PRN Shortness Of Breath Aspirin 325 mg 03/18/21 10:00 03/18/21 10:07 Aspirin Ec 325 Mg Tab PO 325 mg QDAY NICKO Administration Atorvastatin Calcium 40 mg 03/18/21 22:00 03/18/21 21:05 Atorvastatin 40 Mg Tab PO 40 mg QHS NICKO Administration Doxazosin Mesylate 2 mg 03/18/21 18:00 03/18/21 18:34 Doxazosin 1 Mg Tab PO 2 mg QPM NICKO Administration Famotidine 10 mg 03/18/21 10:00 03/18/21 21:05 Famotidine 10 Mg Tab PO 10 mg BID NICKO Administration Furosemide 40 mg 03/18/21 22:00 03/18/21 21:05 Furosemide 40 Mg/4 Ml Inj IV 40 mg BID NICKO Administration Heparin Sodium (Porcine) 5,000 unit 03/18/21 06:00 03/19/21 05:22 Heparin 5,000 Unit/1 Ml Vial SUB-Q Not Given Q8HR NICKO Hydralazine HCl 100 mg 03/18/21 08:00 03/18/21 19:31 Hydralazine 100 Mg Tab PO 100 mg TID NICKO Administration Hydralazine HCl 10 mg 03/17/21 23:51 03/18/21 01:33 Hydralazine 20 Mg/1 Ml Inj IV 10 mg Q6H PRN Administration SBP >/=160; DBP >/=95 Metolazone 5 mg 03/18/21 18:00 03/18/21 18:34 Metolazone 5 Mg Tab PO 5 mg QDAY NICKO Administration Morphine Sulfate 2 mg 03/17/21 23:23 Morphine 2 Mg/1 Ml Inj IV Q5MIN PRN Chest Pain unrelieved by NTG Nifedipine 60 mg 03/18/21 10:00 03/18/21 10:07 Nifedipine Xl 60 Mg Tab PO 60 mg QDAY NICKO Administration Nitroglycerin 0.4 mg 03/17/21 23:23 Nitroglycerin 0.4 Mg Tab Subl SL .Q5MIN PRN Chest Pain Ondansetron HCl 4 mg 03/17/21 23:23 Ondansetron 4 Mg/2 Ml Inj IV Q8H PRN Nausea And Vomiting Sodium Bicarbonate 650 mg 03/18/21 22:00 03/18/21 21:05 Sodium Bicarbonate 650 Mg Tab PO 650 mg BID NICKO Administration Sodium Chloride 10 ml 05/21/21 10:00 03/18/21 21:42 Sodium Chloride 0.9% 10 Ml Flush Syringe IV Not Given BID NICKO Sodium Chloride 10 ml 03/17/21 23:23 03/18/21 21:14 Sodium Chloride 0.9% 10 Ml Flush Syringe IV 10 ml PRN PRN Administration LINE FLUSH Tramadol HCl 50 mg 03/17/21 23:23 Tramadol 50 Mg Tab PO Q6H PRN Pain, Moderate (4-6)
[2021-03-19] MEDS: SODIUM BICARBONATE 650 MG TAB PO SCH (10:37)
[2021-03-19] MEDS: hydrALAZINE 100 MG TAB PO SCH ×2 (10:37→14:10)
[2021-03-19] MEDS: NIFEdipine XL 60 MG TAB PO SCH (10:37)
[2021-03-19] MEDS: FUROSEMIDE 40 MG/4 ML INJ IV SCH (10:37)
[2021-03-19] MEDS: metOLazone 5 MG TAB PO SCH (10:37)
[2021-03-19] MEDS: FAMOTIDINE 10 MG TAB PO SCH (10:37)
[2021-03-19] MEDS: ASPIRIN EC 325 MG TAB PO SCH (10:37)
--- NOTE | 2021-03-19 12:06 | Discharge Summary ---
Providers - Providers Date of Admission: 03/17/21 23:04 Date of discharge: 03/19/21 Attending physician: OMAR SOW 03/17/21 Consult to Cardiac Rehabilitation [CONS] Routine Reason For Exam: Phase I 03/17/21 23:23 Consult to Physician [CONS] Routine Comment: Consulting Provider: CHERYL CHAUHDRY Physician Instructions: Reason For Exam: CHF 03/18/21 13:52 Consult to Physician [CONS] Routine Comment: Consulting Provider: LAURA OBRIEN Physician Instructions: Reason For Exam: CKD Hospitalization Condition: Critical Hospital course: HPI 5-year-old male with past medical history of hypertension, CKD not on dialysis, CHF COPD was brought to the emergency room with complaints of lower extremity swelling for the last 7 days. Patient states that he ran out of all of his medications. Patient takes 2 diuretics and multiple blood pressure medications. Patient states his blood pressure is high. Patient denies chest pain and shortness of breath. Patient denies headache. Patient denies blurry vision. Patient denies any physical complaints except for the lower extremity edema. Patient states that his edema is better when he takes his medications. Patient denies calf pain. Patient denies difficulties walking. Patient states he has history of chronic kidney disease but is not on dialysis. 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 Patient states that he is last GFR was 15. Patient denies dyspnea on exertion. In ER patient is found to have BUN of 71 and creatinine 4.7 GFR 16. Troponin of 0.329 also patient blood pressure is 208/113 \ 03/18 patient is alert and oriented. Sitting up in a chair. No apparent distress and he offers no specific complaints except worsening of his leg edema He denies any chest pain or shortness of breath. Lab results reviewed. 03/19 patient is resting in the bed, alert and oriented, no specific complaints, leg edema is resolved lab results reviewed, Nephrology and cardiology notes reviewed He is medically stable for discharge Assessment and plan CHF versus volume overload Patient denies any chest pain or shortness of breath Cardiology consulted Patient states that he feels better today Leg edema improved Hypertensive emergency Improving Continue present medications Elevated troponin-troponin levels trending down NSTEMI type II-secondary to chronic kidney disease Patient denies any chest pain or shortness of breath Cardiology consulted Acute on chronic kidney disease stage IV-V Serum creatinine in May of last year was 3.67 nephrology consulted Metabolic acidosis Secondary to CKD Normocytic anemia-suspect anemia of chronic kidney disease Hemoglobin dropped this morning to 6.9 from 8.7 yesterday Patient admits to chronic anemia and history of blood transfusions He states that he had blood transfusion 2 weeks ago at [facility] He denies any melena or NSAIDs He states he had a EGD and colonoscopy in [place] in 2019 Posttransfusion hemoglobin this morning was 7.5 Disposition: DC-01 TO HOME OR SELFCARE Final Discharge Diagnosis (Prints w/discharge instructions): Volume overload Time spent for discharge: 38 minutes Core Measure Documentation - Palliative Care Palliative Care/ Comfort Measures: Not Applicable - Core Measures Any of the following diagnoses?: none Exam - Constitutional Vitals: Temp Pulse Resp BP Pulse Ox 97.8 F 72 18 160/75 96 03/19/21 08:53 03/19/21 11:00 03/19/21 11:00 03/19/21 08:53 03/19/21 11:00 General appearance: Present: no acute distress, well-nourished - EENT Eyes: Present: PERRL, EOM intact ENT: hearing intact, clear oral mucosa - Neck Neck: Present: supple, normal ROM. Absent: masses or JVD - Respiratory Respiratory effort: normal Respiratory: bilateral: CTA - Cardiovascular Rhythm: regular Heart Sounds: Present: S1 & S2 - Extremities Extremity abnormal: edema (Trace bilateral leg edema) - Abdominal General gastrointestinal: Present: soft, non-tender Male genitourinary: Present: deferred - Rectal Rectal Exam: deferred - Integumentary Integumentary: Present: clear - Musculoskeletal Musculoskeletal: strength equal bilaterally - Psychiatric Psychiatric: appropriate mood/affect - Neurologic Neurologic: no focal deficits Plan Activity: advance as tolerated Weight Bearing Status: Full Weight Bearing Diet: regular, low fat, low cholesterol, low salt, renal Special Instructions: restrict fluid intake to (1500 mL/day), record daily weights, record daily BP diary Follow up with: PRIMARY CAREMD [Referring] - 3-5 Days CHERYL CHAUDHRY MD [Staff Physician] - 14 Days LAURA OBRIEN MD [Staff Physician] - 10 Days Prescriptions: hydrALAZINE [Apresoline TAB] 100 mg PO TID #90 tab Doxazosin [Cardura] 2 mg PO QPM #30 tablet AtorvaSTATin [Lipitor] 40 mg PO QHS #30 tablet Metoprolol [Lopressor TAB] 25 mg PO BID #60 tablet Famotidine [Pepcid] 20 mg PO BID #60 tablet NIFEdipine XL [Procardia Xl] 60 mg PO QDAY #30 tablet Sodium Bicarbonate 650 mg PO BID #60 tablet metOLazone [Zaroxolyn] 5 mg PO QDAY #30 tablet
[2021-03-19 13:00] VITALS: BP 155/74
--- NOTE | 2021-03-21 11:40 | Electrocardiograph Report ---
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
== END 2021-03-19 16:18 | disposition home or self-care (01) ==
LOC: ED 17:10 → 4A 23:04
PROVIDERS: ADMIT Hospitalist; ATTEND Internal Medicine
DX: I16.1 Hypertensive emergency (principal); I13.0 Hypertensive heart and chronic kidney disease with heart failure and stage 1 through stage 4 chronic kidney disease, or unspecified chronic kidney disease; I50.33 Acute on chronic diastolic (congestive) heart failure; N18.4 Chronic kidney disease, stage 4 (severe); N17.9 Acute kidney failure, unspecified; E87.70 Fluid overload, unspecified; E11.22 Type 2 diabetes mellitus with diabetic chronic kidney disease; E87.2 Acidosis; I50.1 Left ventricular failure, unspecified; R77.8 Other specified abnormalities of plasma proteins; D63.1 Anemia in chronic kidney disease; J44.9 Chronic obstructive pulmonary disease, unspecified; Z79.82 Long term (current) use of aspirin
CPT/HCPCS: 36415; 36430; 71046; 80048; 80053; 80061; 83880; 84484; 85025; 85027; 86850; 86900; 86901; 86920; 87641; 93005; 94640; 96372; 96374; 96375; 96376; 99291; A9270; G0378; J0360; J0885; J1644; J1940; P9016

== ENCOUNTER 2021-06-17 17:05 | Emergency (ER) | payer OTHER ==
--- NOTE | 2021-06-17 17:21 | Emergency Department Report ---
HPI - General Chief Complaint: Cardiac Arrest/CPR Time Seen by Provider: 06/17/21 17:16 - HPI HPI: Room 18 The patient is a 55-year-old male present with a chief complaint of cardiac arrest. Per EMS they received 2 separate stories from onset. The first story is that the patient was seen 15 minutes ago and witnessed to collapse. EMS states all the personnel were told that they last saw the patient 2 hours ago and was found down. EMS arrived on scene to find the patient unresponsive in the bathroom. The patient was found to be in asystole upon arrival's 1634. Patient was protocols were initiated and patient was intubated using a Francisco airway. Epi x4 was administered by EMS prior to arrival. Upon arrival to the ED the patient was still found in asystole. ACLS protocols were continued. The Francisco airway was removed and patient is intubated by myself using direct laryngoscopy. ACLS protocols were continued but there is no return of spontaneous circulation ED Past Medical Hx - Past Medical History Hx Hypertension: Yes Hx Congestive Heart Failure: Yes Hx Diabetes: Yes (type 2) Hx Renal Disease: Yes (cri) Hx COPD: Yes - Surgical History Additional Surgical History: ULCER - Family History Family history: no significant - Social History Smoking Status: Unknown if ever smoked Substance Use Type: None - Medications Home Medications: Home Medications Medication Instructions Recorded Confirmed Last Taken Type metOLazone [Zaroxolyn] 5 mg PO QDAY #30 06/02/20 03/17/21 Unknown Rx Bumetanide 2 mg PO DAILY 03/17/21 03/17/21 Unknown History AtorvaSTATin [Lipitor] 40 mg PO QHS #30 tablet 03/19/21 Unknown Rx Doxazosin [Cardura] 2 mg PO QPM #30 tablet 03/19/21 Unknown Rx Famotidine [Pepcid] 20 mg PO BID #60 tablet 03/19/21 Unknown Rx Metoprolol [Lopressor TAB] 25 mg PO BID #60 tablet 03/19/21 Unknown Rx NIFEdipine XL [Procardia Xl] 60 mg PO QDAY #30 tablet 03/19/21 Unknown Rx Sodium Bicarbonate 650 mg PO BID #60 tablet 03/19/21 Unknown Rx hydrALAZINE [Apresoline TAB] 100 mg PO TID #90 tab 03/19/21 Unknown Rx metOLazone [Zaroxolyn] 5 mg PO QDAY #30 tablet 03/19/21 Unknown Rx ED Review of Systems ROS: Stated complaint: CA Other details as noted in HPI Comment: Unobtainable due to pts medical conditions Physical Exam - Physical Exam Physical Exam: GENERAL: The patient is well-developed well-nourished male lying on stretcher receiving chest compressions and being bagged via Francisco airway by EMS. [] HEENT: Normocephalic. Atraumatic. NECK: Supple. Trachea midline CHEST/LUNGS: No spontaneous respirations. Breath sounds equal bilaterally after intubation by myself HEART/CARDIOVASCULAR: No heart sounds. Asystole on monitor ABDOMEN: Abdomen is soft, nontender. Patient has normal bowel sounds. There is no abdominal distention. SKIN: There is no rash. There is no edema. There is no diaphoresis. NEURO: GCS 3 T MUSCULOSKELETAL: There is no evidence of acute injury. - Intubation Time Out Performed: No Sedative: none ET Tube Size: 8 Tube Secured Depth (cm): 24 Tube Secured Location: teeth Tube Placement Confirmation: visualized tube passing t, equal breath sounds bilat, no breath sounds over epi Patient Tolerated Procedure: no complications Intubation Complications: none ED Medical Decision Making - Differential Diagnosis Cardiac arrest Critical care attestation.: If time is entered above; I have spent that time in minutes in the direct care of this critically ill patient, excluding procedure time. ED Disposition Clinical Impression: Cardiac arrest Disposition: 20 Is pt being admited?: No Does the pt Need Aspirin: No Condition: Poor Time of Disposition: 17:17 (Patient )
== END 2021-06-18 01:59 ==
LOC: ED 17:05
DX: I46.9 Cardiac arrest, cause unspecified (principal); J44.9 Chronic obstructive pulmonary disease, unspecified; I11.0 Hypertensive heart disease with heart failure; I50.9 Heart failure, unspecified; E11.9 Type 2 diabetes mellitus without complications; Z79.899 Other long term (current) drug therapy; Z88.8 Allergy status to other drugs, medicaments and biological substances
CPT/HCPCS: 31500